=== PATIENT | female | born 1930 | race African-American/Black ===

== ENCOUNTER 2017-03-19 09:31 | Outpatient (CLI) | payer MEDICARE ==
--- NOTE | 2017-03-19 10:52 | Cat Scan Report ---
CT HEAD WITHOUT CONTRAST: HISTORY: Head injury. TECHNIQUE: Sequential CT images without contrast. FINDINGS: Images obtained show bilateral prominence of the sulci and ventricles. There are no abnormal intra- or extra-axial blood or fluid collections. There are no focal masses or evidence of mass effect. The bauer white matter differentiation appears within normal limits. Regions of periventricular decreased attenuation are consistent with microangiopathic ischemic disease. The posterior fossa structures including the fourth ventricle, cerebellum, and brainstem appear normal. IMPRESSION: Evidence of atrophy and microangiopathic ischemic disease. No acute intracranial process noted.
== END 2017-03-19 09:32 | disposition home or self-care (01) ==
LOC: CT 09:31
PROVIDERS: ATTEND Family Medicine
DX: S00.03XA Contusion of scalp, initial encounter (principal); S09.90XA Unspecified injury of head, initial encounter; W19.XXXA Unspecified fall, initial encounter; Y93.89 Activity, other specified; Y92.098 Other place in other non-institutional residence as the place of occurrence of the external cause; Y99.8 Other external cause status
CPT/HCPCS: 70450

== ENCOUNTER 2018-05-05 21:19 | Emergency (ER) | payer MEDICARE ==
[2018-05-05 22:18] LABS: Alanine Aminotransferase 8 units/L (7-56); Albumin 3.7 g/dL (3.9-5); BUN/Creatinine Ratio 26; Blood Urea Nitrogen 13 mg/dL (7-17); Calcium 8.7 mg/dL (8.4-10.2); Hemolysis Index 13
--- NOTE | 2018-05-05 22:29 | Emergency Department Report ---
ED Altered Mental Status HPI - General Chief Complaint: Altered Mental Status Stated Complaint: AMS Time Seen by Provider: 05/05/18 22:02 Source: family, EMS Mode of arrival: Stretcher Limitations: Language Barrier - History of Present Illness Initial Comments: 87-year-old female with history of prior CVA, COPD, GERD, "left lung collapse" (per family) presents to ED with altered mental status since this morning. Family states patient was her normal self yesterday. States she woke up this morning, did not eat as much breakfast as she normally does, she then went back to sleep. Family reports the same thing with lunch, she did not eat as much, no r did she watch TV and she usually does. Family states patient went back to sleep. They had to wake patient up for dinner, and she only had 4 spoonfuls of soup. Due to her lethargy, family called EMS to bring to the ER for evaluation. Patient has history of prior CVA, with left-sided weakness, slurred speech, and facial droop. Family at bedside translating for patient. Patient opens eyes to name call. Denies headache, abdominal pain, vomiting, diarrhea. Reports mild chest discomfort. Patient is oriented to her name, age, place. Family states patient would not normally know the year. Family reports patient was seen by PCP approx one week ago for cough and was given medications for it. Patient has not taken any of her prescription meds today. PCP: Dr Sharonda CROUCH Complaint: altered mental status -: This morning Severity: moderate Consistency of Symptoms: getting worse Associated Symptoms: chest pain, cough, loss of appetite. denies: fever/chills, nausea/vomiting, shortness of breath, diarrhea - Related Data Home Medications Medication Instructions Recorded Confirmed Last Taken ALBUTEROL Inhaler (OR & NICU) 90 mcg IH TID 04/17/14 10/04/17 Unknown [ProAir HFA Inhaler] Oxybutynin [Ditropan] 5 mg PO QHS 04/17/14 10/04/17 Unknown Pantoprazole [Protonix TAB] 40 mg PO QDAY 04/17/14 10/04/17 Unknown amLODIPine [Norvasc] 5 mg PO DAILY 04/17/14 10/04/17 Unknown Lubiprostone [Amitiza] 8 mcg PO QDAY 10/04/17 10/04/17 Unknown OLANZapine 5 mg PO DAILY 10/04/17 10/04/17 Unknown Previous Rx's Medication Instructions Recorded Last Taken Type traMADol [Ultram 50 MG tab] 50 mg PO Q6HR PRN #10 tablet 10/07/17 Unknown Rx Allergies Allergy/AdvReac Type Severity Reaction Status Date / Time No Known Allergies Allergy Unverified 04/17/14 10:24 ED Review of Systems ROS: Stated complaint: AMS Other details as noted in HPI Comment: All other systems reviewed and negative Constitutional: denies: chills, fever Respiratory: cough. denies: shortness of breath Cardiovascular: chest pain Gastrointestinal: denies: abdominal pain, nausea, vomiting, diarrhea Neurological: denies: headache ED Past Medical Hx - Past Medical History Previous Medical History?: Yes Hx Hypertension: Yes Hx CVA: Yes Hx GERD: Yes (REFLUX) Hx COPD: Yes Additional medical history: ANENIA;THYROID;ATELECTASIS - Surgical History Past Surgical History?: No - Social History Smoking Status: Never Smoker Substance Use Type: None - Medications Home Medications: Home Medications Medication Instructions Recorded Confirmed Last Taken Type ALBUTEROL Inhaler (OR & NICU) 90 mcg IH TID 04/17/14 10/04/17 Unknown History [ProAir HFA Inhaler] Oxybutynin [Ditropan] 5 mg PO QHS 04/17/14 10/04/17 Unknown History Pantoprazole [Protonix TAB] 40 mg PO QDAY 04/17/14 10/04/17 Unknown History amLODIPine [Norvasc] 5 mg PO DAILY 04/17/14 10/04/17 Unknown History Lubiprostone [Amitiza] 8 mcg PO QDAY 10/04/17 10/04/17 Unknown History OLANZapine 5 mg PO DAILY 10/04/17 10/04/17 Unknown History traMADol [Ultram 50 MG tab] 50 mg PO Q6HR PRN #10 tablet 10/07/17 Unknown Rx ED Physical Exam - General Limitations: Language Barrier General appearance: lethargic - Head Head exam: Present: atraumatic, normocephalic - Eye Eye exam: Present: normal appearance - ENT ENT exam: Present: mucous membranes dry - Neck Neck exam: Present: normal inspection - Respiratory Respiratory exam: Present: normal lung sounds bilaterally. Absent: respiratory distress - Cardiovascular Cardiovascular Exam: Present: regular rate, normal rhythm - GI/Abdominal GI/Abdominal exam: Present: soft. Absent: distended, tenderness - Extremities Exam Extremities exam: Present: normal inspection. Absent: pedal edema, calf tenderness - Neurological Exam Neurological exam: Present: oriented X3 (to place, self, age), motor sensory deficit (normal strength in bilateral upper and lower extremities). Absent: CN II-XII intact (left facial droop noted, baseline per family) - Psychiatric Psychiatric exam: Present: flat affect - Skin Skin exam: Present: warm, dry, intact, normal color. Absent: rash - Assessment Assessment Interval: Baseline - Level of Consciousness 1a. Level of Consciousness: arousable/minor stimuli - LOC Questions 1b. LOC Questions: answers both correctly - LOC Command 1c. LOC Commands: performs tasks correctly - Best Gaze 2. Best Gaze: normal - Visual 3. Visual: no visual loss - Facial Palsy 4. Facial Palsy: minor paralysis - Motor Arm 5a. Motor Arm Left: no drift 5b. Motor Arm Right: no drift - Motor Leg 6a. Motor Leg Left: no drift 6b. Motor Leg Right: no drift - Limb Ataxia 7. Limb Ataxia: absent - Sensory 8. Sensory: normal - Best Language 9. Best Language: no aphasia - Dysarthria 10. Dysarthria: mild/moderate dysarthria - Extinction and Inattention 11. Extinction/Inattention: no abnormality - Scoring Total Score: 3 Stroke Severity: Minor Stroke ED Course Vital Signs 05/05/18 05/05/18 05/05/18 21:34 21:56 23:31 Temperature 97.7 F 97.6 F 97.9 F Pulse Rate 59 L 70 73 Respiratory 20 18 15 Rate Blood Pressure 139/69 Blood Pressure 139/69 166/89 195/92 [Left] O2 Sat by Pulse 94 98 94 Oximetry 05/06/18 05/06/18 00:07 01:19 Temperature Pulse Rate 70 79 Respiratory 12 13 Rate Blood Pressure Blood Pressure 144/77 151/71 [Left] O2 Sat by Pulse 94 94 Oximetry - Reevaluation(s) Reevaluation #1: 05/06/18 01:06 Spoke w/ Dr Kaufman regarding CT. Does not feel comfortable admitting this pt w/ this scan. Will attempt transfer. - Consultations Consultation #1: 05/06/18 01:07 Spoke w/ Dr Moncada, neuro ICU attending, willing to accept the pt, however, no beds available. [place] [facility] [place] 05/06/18 01:43 Patient accepted to [facility], bed assigned. Will await transport. - Lab Data Result diagrams: 05/06/18 01:20 05/05/18 21:54 Lab Results 05/05/18 05/05/18 05/05/18 Range/Units 21:54 22:31 22:31 WBC (4.5-11.0) K/mm3 RBC (3.65-5.03) M/mm3 Hgb (10.1-14.3) gm/dl Hct (30.3-42.9) % MCV (79-97) fl MCH (28-32) pg MCHC (30-34) % RDW (13.2-15.2) % Plt Count (140-440) K/mm3 Lymph % (Auto) (13.4-35.0) % [place] % (Auto) (0.0-7.3) % Eos % (Auto) (0.0-4.3) % Baso % (Auto) (0.0-1.8) % Lymph # (1.2-5.4) K/mm3 [place] # (0.0-0.8) K/mm3 Eos # (0.0-0.4) K/mm3 Baso # (0.0-0.1) K/mm3 Seg Neutrophils % (40.0-70.0) % Seg Neutrophils # (1.8-7.7) K/mm3 PT 12.3 (12.2-14.9) Sec. INR 0.87 (0.87-1.13) APTT 29.0 (24.2-36.6) Sec. Sodium 143 (137-145) mmol/L Potassium 3.2 L (3.6-5.0) mmol/L Chloride 103.8 (98-107) mmol/L Carbon Dioxide 28 (22-30) mmol/L Anion Gap 14 mmol/L BUN 13 (7-17) mg/dL Creatinine 0.5 L (0.7-1.2) mg/dL Estimated GFR > 60 ml/min BUN/Creatinine Ratio 26 % Glucose 103 H (65-100) mg/dL Calcium 8.7 (8.4-10.2) mg/dL Total Bilirubin 0.60 0.70 (0.1-1.2) mg/dL Direct Bilirubin < 0.2 (0-0.2) mg/dL Indirect Bilirubin 0.5 mg/dL AST 12 12 (5-40) units/L ALT 8 8 (7-56) units/L Alkaline Phosphatase 70 72 (35-129) units/L Troponin T (0.00-0.029) ng/mL Total Protein 6.7 6.5 (6.3-8.2) g/dL Albumin 3.7 L 3.9 (3.9-5) g/dL Albumin/Globulin Ratio 1.2 1.5 % Lipase 12 L (13-60) units/L Urine Color (Yellow) Urine Turbidity (Clear) Urine pH (5.0-7.0) Ur Specific [place] (1.003-1.030) Urine Protein (Negative) mg/dL Urine Glucose (UA) (Negative) mg/dL Urine Ketones (Negative) mg/dL Urine Blood (Negative) Urine Nitrite (Negative) Urine Bilirubin (Negative) Urine Urobilinogen (<2.0) mg/dL Ur Leukocyte Esterase (Negative) Urine WBC (Auto) (0.0-6.0) /HPF Urine RBC (Auto) (0.0-6.0) /HPF U Epithel Cells (Auto) (0-13.0) /HPF Amorphous Crystals 05/05/18 05/05/18 05/06/18 Range/Units 22:31 23:25 01:20 WBC 7.1 (4.5-11.0) K/mm3 RBC 4.18 (3.65-5.03) M/mm3 Hgb 12.7 (10.1-14.3) gm/dl Hct 38.9 (30.3-42.9) % MCV 93 (79-97) fl MCH 31 (28-32) pg MCHC 33 (30-34) % RDW 15.2 (13.2-15.2) % Plt Count 177 (140-440) K/mm3 Lymph % (Auto) 12.5 L (13.4-35.0) % [place] % (Auto) 6.7 (0.0-7.3) % Eos % (Auto) 2.5 (0.0-4.3) % Baso % (Auto) 0.2 (0.0-1.8) % Lymph # 0.9 L (1.2-5.4) K/mm3 [place] # 0.5 (0.0-0.8) K/mm3 Eos # 0.2 (0.0-0.4) K/mm3 Baso # 0.0 (0.0-0.1) K/mm3 Seg Neutrophils % 78.1 H (40.0-70.0) % Seg Neutrophils # 5.6 (1.8-7.7) K/mm3 PT (12.2-14.9) Sec. INR (0.87-1.13) APTT (24.2-36.6) Sec. Sodium (137-145) mmol/L Potassium (3.6-5.0) mmol/L Chloride (98-107) mmol/L Carbon Dioxide (22-30) mmol/L Anion Gap mmol/L BUN (7-17) mg/dL Creatinine (0.7-1.2) mg/dL Estimated GFR ml/min BUN/Creatinine Ratio % Glucose (65-100) mg/dL Calcium (8.4-10.2) mg/dL Total Bilirubin (0.1-1.2) mg/dL Direct Bilirubin (0-0.2) mg/dL Indirect Bilirubin mg/dL AST (5-40) units/L ALT (7-56) units/L Alkaline Phosphatase (35-129) units/L Troponin T < 0.010 (0.00-0.029) ng/mL Total Protein (6.3-8.2) g/dL Albumin (3.9-5) g/dL Albumin/Globulin Ratio % Lipase (13-60) units/L Urine Color Straw (Yellow) Urine Turbidity Clear (Clear) Urine pH 7.0 (5.0-7.0) Ur Specific [place] 1.008 (1.003-1.030) Urine Protein <15 mg/dl (Negative) mg/dL Urine Glucose (UA) Neg (Negative) mg/dL Urine Ketones Neg (Negative) mg/dL Urine Blood Neg (Negative) Urine Nitrite Neg (Negative) Urine Bilirubin Neg (Negative) Urine Urobilinogen < 2.0 (<2.0) mg/dL Ur Leukocyte Esterase Neg (Negative) Urine WBC (Auto) < 1.0 (0.0-6.0) /HPF Urine RBC (Auto) < 1.0 (0.0-6.0) /HPF U Epithel Cells (Auto) < 1.0 (0-13.0) /HPF Amorphous Crystals 1+ - EKG Data -: EKG Interpreted by Me EKG shows normal: sinus rhythm, intervals, QRS complexes Rate: normal When compared to previous EKG there are: no significant change (compared to 09/18/2010) Interpretation: other (T wave inversion V2, aVL) - Radiology Data Radiology results: report reviewed - Medical Decision Making 87-year-old female presents to ED with altered mental status since this morning. Other than hypokalemia with potassium of 3.2, labs unremarkable. Chest x-ray shows patchy airspace disease in left lower lobe. Son reported the patient has a history of "left lung collapse." Patient is afebrile and has normal white count, does not meet sepsis criteria. However, will cover for possible pneumonia with [address] head shows small area of subacute hemorrhage versus mass. Unable to clarify between the two as we do not have MRI available overnight. No edema or mass effect noted. Spoke with the neuro ICU physician at [facility] who has accepted this patient in transfer. The patient has had no decl ine in mental status during her ER stay. Awaiting transport. - Differential Diagnosis infection, electrolyte abnormality, CVA Critical Care Time: Yes Critical care time in (mins) excluding proc time.: 35 Critical care attestation.: If time is entered above; I have spent that time in minutes in the direct care of this critically ill patient, excluding procedure time. Critical Care Time: 35 minutes ED Disposition Clinical Impression: Altered mental status, Abnormal CT of brain, Hypokalemia Disposition: DC/TX-70 ANOTHER TYPE HLTHCARE Is pt being admited?: No Condition: Stable Referrals: RODOLFO MONTEMAYOR MD [Primary Care Provider] - 3-5 Days Time of Disposition: 01:45
[2018-05-05] MEDS ORDERED: NACL 0.9% 1000 ML 1,000 ML IV ONE (22:34)
[2018-05-05 22:57] LABS: INR 0.87 (0.87-1.13)
--- NOTE | 2018-05-05 23:18 | XRay Report ---
PROCEDURE: XR CHEST 1V AP TECHNIQUE: PROCEDURE: CHEST 1 VIEW Chest radiograph posteroanterior projection. CPT 96910 HISTORY: COMPARISONS: None . FINDINGS: Heart: Normal. Mediastinum/Vessels: Normal. Lungs/Pleural space: An inhomogeneous densities noted in the left retrocardiac region. Left costophr enic angle is obscured. Right lung and right pleural spaces are clear.. Bony thorax: No acute osseous abnormality. IMPRESSION: Inhomogeneous density left lower lung may represent atelectasis versus infiltrative horne ge. A two-view chest study is recommended whenever the patient's condition permits.. This document is electronically signed by Miguel Angel Moy MD., May 05 2018 11:16:02 PM ET
--- NOTE | 2018-05-05 23:36 | Cat Scan Report ---
PROCEDURE: CT HEAD/BRAIN WO CON TECHNIQUE: Computerized tomography of the head was performed without contrast material. Imaging was obtained in axial increments. CT DOSE LENGTH PRODUCT: 805.42 mGycm HISTORY: AMS COMPARISONS: None . FINDINGS: There is low density in the periventricular white matter around the left frontal horn. Ballooning of the left frontal horn is noted. A remote lacunar infarct lateral to left frontal horn is seen. There are also tiny remote lacunar infarcts in each basal ganglia. There is a hyperdense ovoid density measuring 8 x 7 mm (axial image 17/56) within the left lisa. No s urrounding edema or mass effect is seen. Findings suggest either small area of subacute hemorrhage or underlying mass. The ventricular system is otherwise normal in size and configuration. There is no evidence for parenc hymal volume loss. There is no evidence for mass effect, midline shift, or acute ischemia/ infarction. No evidence for acute skull fracture is seen. No abnormality in the overlying scalp soft tissues is s een. Visualized paranasal sinuses are clear. IMPRESSION: 1. Multiple ovoid hyperdense focus in the left lisa without surrounding mass effect or edema. Differe ntial includes small area subacute hemorrhage or underlying mass. MRI would be of further help. 2. Small vessel ischemic changes and multiple bilateral remote lacunar infarcts in the periventricula r white matter, especially around the left frontal horn. This document is electronically signed by Luz Harris MD., May 05 2018 11:34:16 PM ET
[2018-05-05 23:43] LABS: Alanine Aminotransferase 8 units/L (7-56); Albumin 3.9 g/dL (3.9-5)
[2018-05-05 23:54] LABS: Bilirubin,Direct < 0.2 mg/dL (0-0.2)
[2018-05-06 00:11] LABS: Amorphous Crystals,Urine 1+; Bilirubin,Urine NEG (Negative); Blood,Urine NEG (Negative); Color,Urine Straw (Yellow); Protein,Urine <15 mg/dL mg/dL (Negative); RBC,Urine < 1.0 /HPF (0.0-6.0); Urobilinogen,Urine < 2.0 mg/dL (<2.0); WBC,Urine < 1.0 /HPF (0.0-6.0)
--- NOTE | 2018-05-06 01:19 | XRay Report ---
PROCEDURE: XR CHEST ROUTINE 2V TECHNIQUE: AP and lateral views of the chest were obtained. HISTORY: cough, hx of "left lung collapse" COMPARISONS: 05/05/2018 FINDINGS: The heart is mildly enlarged. The lungs are diffusely congested. There is patchy airspace disease in the left lower lobe. Pleural fluid is not seen. The skeletal structures reveal generalized osteoporos is with chronic depression fractures in the upper lumbar spine. IMPRESSION: Cardiomegaly with pulmonary vascular congestion. Patchy airspace disease in the left lung base unchan ged.. This document is electronically signed by Davis Rodriguez MD., May 06 2018 01:17:36 AM ET
[2018-05-06 01:20] VITALS: BP 151/71
[2018-05-06 01:24] LABS: Basophils % (Auto) 0.2 % (0.0-1.8); Eosinophils # (Auto) 0.2 K/mm3 (0.0-0.4); Eosinophils % (Auto) 2.5 % (0.0-4.3); Hematocrit 38.9 % (30.3-42.9); Hemoglobin 12.7 gm/dl (10.1-14.3); Lymphocytes # (Auto) 0.9 K/mm3 (1.2-5.4); Lymphocytes % (Auto) 12.5 % (13.4-35.0); Mean Corpuscular HGB Conc 33 % (30-34); Mean Corpuscular Volume 93 fl (79-97); Monocytes # (Auto) 0.5 K/mm3 (0.0-0.8); Monocytes % (Auto) 6.7 % (0.0-7.3); Platelet Count 177 K/mm3 (140-440); Red Blood Count 4.18 M/mm3 (3.65-5.03); Red Cell Distribution Width 15.2 % (13.2-15.2)
[2018-05-06] MEDS ORDERED: K-DUR PO ONE (01:51)
[2018-05-06] MEDS ORDERED: LEVAQUIN 750MG/150ML 750 MG/150 ML BAG IV ONE (01:54)
== END 2018-05-06 02:40 | disposition other institution (70) ==
LOC: ED 21:19
DX: E87.6 Hypokalemia (principal); R41.82 Altered mental status, unspecified; I10 Essential (primary) hypertension; K21.9 Gastro-esophageal reflux disease without esophagitis; J44.9 Chronic obstructive pulmonary disease, unspecified; Z86.73 Personal history of transient ischemic attack (TIA), and cerebral infarction without residual deficits; Z86.2 Personal history of diseases of the blood and blood-forming organs and certain disorders involving the immune mechanism; Z79.899 Other long term (current) drug therapy
CPT/HCPCS: 36415; 70450; 71045; 71046; 80048; 80053; 80076; 81001; 83690; 84484; 85025; 85610; 85730; 93005; 93010; 96361; 96365; 99291; J1956; J7030

== ENCOUNTER 2018-05-27 16:23 | Inpatient (IN) | payer MEDICARE ==
--- NOTE | 2018-05-27 17:29 | Emergency Department Report ---
ED Altered Mental Status HPI - General Chief Complaint: Altered Mental Status Stated Complaint: NOT ACTING RIGHT Time Seen by Provider: 05/27/18 17:18 Source: family, EMS Mode of arrival: Stretcher Limitations: Language Barrier, Altered Mental Status - History of Present Illness Initial Comments: Patient is a 87-year-old female that presents emergency room with complaints of altered mental status, elevated blood pressure, chest pain and abdominal pain. Family is at bedside to translate. Family states that the patient was not answering questions appropriately but is normally completely oriented. Family called EMS because her blood pressure was 180/80 at home and the altered mental status. Patient began to complain of chest pain this morning. Patient also started complaining of abdominal pain 3 days ago. Patient states that the abdominal pain is moderate and the chest pain is moderate. Patient states that the abdominal pain is better with rest and worse with palpation and eating. Patient states the abdominal pain is in her epigastric region. Patient states that the chest pain is in her left chest and nonradiating and it is a moderate pain. Patient denies shortness of breath and diaphoresis and nausea and vomiting. Patient states her chest pain is better with rest and worse with exertion. Son at bedside states that the patient had a stroke 3 weeks ago at a UTI 2 weeks ago. Son states she was seen at [place] for these. MD Complaint: altered mental status, confusion -: Sudden Severity: severe Consistency of Symptoms: waxing and waning Associated Symptoms: chest pain, weakness. denies: malaise, nausea/vomiting, rash, seizure, shortness of breath, syncope, foul smelling urine, diarrhea, incontinence - Related Data Home Medications Medication Instructions Recorded Confirmed Last Taken Oxybutynin [Ditropan] 5 mg PO QHS 04/17/14 05/27/18 05/26/18 Pantoprazole [Protonix TAB] 40 mg PO QDAY 04/17/14 05/27/18 05/27/18 Benzonatate [Tessalon Perles] 100 mg PO Q8HR 05/27/18 05/27/18 05/27/18 Bisacodyl [Bisac-Evac] 10 mg RC QDAY PRN 05/27/18 05/27/18 Unknown Labetalol [Normodyne TAB] 100 mg PO BID 05/27/18 05/27/18 05/27/18 Lubiprostone [Amitiza] 8 mcg PO QDAY 05/27/18 05/27/18 05/27/18 Symbicort 160-4.5 Mcg Inhaler 160 mcg INHALATION Q8H 05/27/18 05/27/18 Unknown Tiotropium [place] [Spiriva 4 gm INHALATION Q8H 05/27/18 05/27/18 Unknown Respimat] Allergies Allergy/AdvReac Type Severity Reaction Status Date / Time No Known Allergies Allergy Unverified 04/17/14 10:24 ED Review of Systems ROS: Stated complaint: NOT ACTING RIGHT Other details as noted in HPI Constitutional: denies: chills, fever Eyes: denies: eye pain, eye discharge, vision change ENT: denies: ear pain, throat pain Respiratory: denies: cough, shortness of breath, wheezing Cardiovascular: chest pain. denies: palpitations Endocrine: no symptoms reported Gastrointestinal: abdominal pain. denies: nausea, diarrhea Genitourinary: denies: urgency, dysuria, discharge Musculoskeletal: denies: back pain, joint swelling, arthralgia Skin: denies: rash, lesions Neurological: weakness, confusion. denies: headache, paresthesias Psychiatric: denies: anxiety, depression Hematological/Lymphatic: denies: easy bleeding, easy bruising ED Past Medical Hx - Past Medical History Previous Medical History?: Yes Hx Hypertension: Yes Hx CVA: Yes Hx GERD: Yes (REFLUX) Hx COPD: Yes Additional medical history: ANENIA;THYROID;ATELECTASIS - Surgical History Past Surgical History?: No - Family History Family history: no significant - Social History Smoking Status: Never Smoker Substance Use Type: None - Medications Home Medications: Home Medications Medication Instructions Recorded Confirmed Last Taken Type Oxybutynin [Ditropan] 5 mg PO QHS 04/17/14 05/27/18 05/26/18 History Pantoprazole [Protonix TAB] 40 mg PO QDAY 04/17/14 05/27/18 05/27/18 History Benzonatate [Tessalon Perles] 100 mg PO Q8HR 05/27/18 05/27/18 05/27/18 History Bisacodyl [Bisac-Evac] 10 mg RC QDAY PRN 05/27/18 05/27/18 Unknown History Labetalol [Normodyne TAB] 100 mg PO BID 04/06/1105/27/18 05/27/18 History Lubiprostone [Amitiza] 8 mcg PO QDAY 05/27/18 05/27/18 05/27/18 History Symbicort 160-4.5 Mcg Inhaler 160 mcg INHALATION Q8H 05/27/18 05/27/18 Unknown History Tiotropium [place] [Spiriva 4 gm INHALATION Q8H 05/27/18 05/27/18 Unknown History Respimat] ED Physical Exam - General Limitations: Language Barrier General appearance: alert, in no apparent distress - Head Head exam: Present: atraumatic, normocephalic - Eye Eye exam: Present: normal appearance - ENT ENT exam: Present: mucous membranes moist - Neck Neck exam: Present: normal inspection - Respiratory Respiratory exam: Present: normal lung sounds bilaterally. Absent: respiratory distress - Cardiovascular Cardiovascular Exam: Present: regular rate, normal rhythm. Absent: systolic murmur, diastolic murmur, rubs, gallop - GI/Abdominal GI/Abdominal exam: Present: soft, tenderness (epigastric tenderness), normal bowel sounds. Absent: distended, guarding - Rectal Rectal exam: Present: deferred - Extremities Exam Extremities exam: Present: normal inspection - Back Exam Back exam: Present: normal inspection - Neurological Exam Neurological exam: Present: alert, altered - Psychiatric Psychiatric exam: Present: normal affect, normal mood - Skin Skin exam: Present: warm, dry, intact, normal color. Absent: rash - Assessment Assessment Interval: Baseline - Level of Consciousness 1a. Level of Consciousness: alert/keenly responsive - LOC Questions 1b. LOC Questions: answers both correctly - LOC Command 1c. LOC Commands: performs tasks correctly - Best Gaze 2. Best Gaze: normal - Visual 3. Visual: no visual loss - Facial Palsy 4. Facial Palsy: normal symmetrical movement - Motor Arm 5a. Motor Arm Left: no drift 5b. Motor Arm Right: no drift - Motor Leg 6a. Motor Leg Left: no drift 6b. Motor Leg Right: no drift - Limb Ataxia 7. Limb Ataxia: absent - Sensory 8. Sensory: normal - Best Language 9. Best Language: no aphasia - Dysarthria 10. Dysarthria: normal - Extinction and Inattention 11. Extinction/Inattention: no abnormality - Scoring Total Score: 0 Stroke Severity: No Stroke Symptoms ED Course Vital Signs 05/27/18 05/27/18 05/27/18 17:11 18:53 19:00 Temperature 98.3 F Pulse Rate 52 L 57 L 55 L Respiratory 12 15 22 Rate Blood Pressure 164/60 164/67 Blood Pressure 164/60 164/67 [Right] O2 Sat by Pulse 98 97 96 Oximetry 05/27/18 05/27/18 05/27/18 19:30 20:00 21:00 Temperature Pulse Rate 57 L 64 Respiratory 18 16 11 L Rate Blood Pressure 163/74 163/74 Blood Pressure [Right] O2 Sat by Pulse 100 98 96 Oximetry 05/27/18 05/27/18 05/27/18 21:43 22:01 22:43 Temperature Pulse Rate 65 Respiratory 18 14 15 Rate Blood Pressure 151/76 Blood Pressure [Right] O2 Sat by Pulse 98 Oximetry - Reevaluation(s) Reevaluation #1: Discussed all results with patient and family. Patient and family agree with plan of care and admission. Patient will be admitted to the hospitalist service. 05/27/18 19:31 - Consultations Consultation #1: Hospitalist consult for admission. Hospitalist to admit patient. 05/27/18 19:30 - Lab Data Result diagrams: 05/27/18 17:41 05/27/18 17:40 Lab Results 05/27/18 05/27/18 05/27/18 Range/Units 17:40 17:41 17:41 WBC 4.7 (4.5-11.0) K/mm3 RBC 3.71 (3.65-5.03) M/mm3 Hgb 11.3 (10.1-14.3) gm/dl Hct 33.4 (30.3-42.9) % MCV 90 (79-97) fl MCH 30 (28-32) pg MCHC 34 (30-34) % RDW 13.2 (13.2-15.2) % Plt Count 185 (140-440) K/mm3 Lymph % (Auto) 14.9 (13.4-35.0) % [place] % (Auto) 6.4 (0.0-7.3) % Eos % (Auto) 1.0 (0.0-4.3) % Baso % (Auto) 0.2 (0.0-1.8) % Lymph # 0.7 L (1.2-5.4) K/mm3 [place] # 0.3 (0.0-0.8) K/mm3 Eos # 0.0 (0.0-0.4) K/mm3 Baso # 0.0 (0.0-0.1) K/mm3 Seg Neutrophils % 77.5 H (40.0-70.0) % Seg Neutrophils # 3.6 (1.8-7.7) K/mm3 Sodium 135 L (137-145) mmol/L Potassium 4.0 (3.6-5.0) mmol/L Chloride 98.1 (98-107) mmol/L Carbon Dioxide 26 (22-30) mmol/L Anion Gap 15 mmol/L BUN 9 (7-17) mg/dL Creatinine 0.4 L (0.7-1.2) mg/dL Estimated GFR > 60 ml/min BUN/Creatinine Ratio 23 % Glucose 101 H (65-100) mg/dL Lactic Acid 1.10 (0.7-2.0) mmol/L Calcium 8.8 (8.4-10.2) mg/dL Total Bilirubin 0.60 (0.1-1.2) mg/dL AST 15 (5-40) units/L ALT 11 (7-56) units/L Alkaline Phosphatase 76 (35-129) units/L Total Creatine Kinase 42 (30-135) units/L Troponin T < 0.010 (0.00-0.029) ng/mL Total Protein 6.4 (6.3-8.2) g/dL Albumin 3.7 L (3.9-5) g/dL Albumin/Globulin Ratio 1.4 % Urine Color (Yellow) Urine Turbidity (Clear) Urine pH (5.0-7.0) Ur Specific [place] (1.003-1.030) Urine Protein (Negative) mg/dL Urine Glucose (UA) (Negative) mg/dL Urine Ketones (Negative) mg/dL Urine Blood (Negative) Urine Nitrite (Negative) Urine Bilirubin (Negative) Urine Urobilinogen (<2.0) mg/dL Ur Leukocyte Esterase (Negative) Urine WBC (Auto) (0.0-6.0) /HPF Urine RBC (Auto) (0.0-6.0) /HPF Urine Mucus /HPF 05/27/18 Range/Units 20:04 WBC (4.5-11.0) K/mm3 RBC (3.65-5.03) M/mm3 Hgb (10.1-14.3) gm/dl Hct (30.3-42.9) % MCV (79-97) fl MCH (28-32) pg MCHC (30-34) % RDW (13.2-15.2) % Plt Count (140-440) K/mm3 Lymph % (Auto) (13.4-35.0) % [place] % (Auto) (0.0-7.3) % Eos % (Auto) (0.0-4.3) % Baso % (Auto) (0.0-1.8) % Lymph # (1.2-5.4) K/mm3 [place] # (0.0-0.8) K/mm3 Eos # (0.0-0.4) K/mm3 Baso # (0.0-0.1) K/mm3 Seg Neutrophils % (40.0-70.0) % Seg Neutrophils # (1.8-7.7) K/mm3 Sodium (137-145) mmol/L Potassium (3.6-5.0) mmol/L Chloride (98-107) mmol/L Carbon Dioxide (22-30) mmol/L Anion Gap mmol/L BUN (7-17) mg/dL Creatinine (0.7-1.2) mg/dL Estimated GFR ml/min BUN/Creatinine Ratio % Glucose (65-100) mg/dL Lactic Acid (0.7-2.0) mmol/L Calcium (8.4-10.2) mg/dL Total Bilirubin (0.1-1.2) mg/dL AST (5-40) units/L ALT (7-56) units/L Alkaline Phosphatase (35-129) units/L Total Creatine Kinase (30-135) units/L Troponin T (0.00-0.029) ng/mL Total Protein (6.3-8.2) g/dL Albumin (3.9-5) g/dL Albumin/Globulin Ratio % Urine Color Yellow (Yellow) Urine Turbidity Clear (Clear) Urine pH 7.0 (5.0-7.0) Ur Specific [place] 1.011 (1.003-1.030) Urine Protein <15 mg/dl (Negative) mg/dL Urine Glucose (UA) Neg (Negative) mg/dL Urine Ketones Neg (Negative) mg/dL Urine Blood Neg (Negative) Urine Nitrite Neg (Negative) Urine Bilirubin Neg (Negative) Urine Urobilinogen < 2.0 (<2.0) mg/dL Ur Leukocyte Esterase Neg (Negative) Urine WBC (Auto) < 1.0 (0.0-6.0) /HPF Urine RBC (Auto) 1.0 (0.0-6.0) /HPF Urine Mucus Few /HPF - EKG Data -: EKG Interpreted by [facility] EKG shows normal: sinus rhythm, axis, intervals, QRS complexes, ST-T waves Rate: normal Interpretation: [facility] - Radiology Data Radiology results: report reviewed PROCEDURE: CT ABDOMEN PELVIS WO CON TECHNIQUE: Computerized axial tomography of the abdomen and pelvis was performed without intravenous contrast. This study is performed without intravascular contrast material and its sensitivity for abdominal and pelvic pathology, including neoplasms, i nflammation, abscess, free fluid, thrombosis, arterial dissection and infarction, is reduced compared with a contrast enhanced study. HISTORY: abd pain COMPARISONS: 10/04/2017 . FINDINGS: Visualized lower thorax: There is left lower lobe volume loss and atelectasis. Liver: Normal size and attenuation. Spleen: Normal size and attenuation. Gallbladder and biliary system: Possible cholelithiasis. Pancreas: Normal. Adrenals: Normal. Kidneys: Bilateral nonobstructing renal calculi, measuring up to 5 mm in the right kidney and 4 mm in the left kidney. Bilateral renal cysts. No hydronephrosis bilaterally. GI tract: Large volume of stool seen throughout the colon, compatible with co nstipation. No bowel obstruction or inflammation . No appendiceal inflammation. Lymph nodes and mesentery: Normal. Vasculature: Aortic atherosclerotic calcification. Bladder: Normal. Reproductive organs: Uterus is present. Peritoneum: No free fluid. Musculoskeletal structures: Stable compression fractures of T12 and L2. Other: None. IMPRESSION: Probable cholelithiasis. Bilateral nonobstructing renal calculi. No bowel obstruction or acute inflammation. Large volume of stool is present throughout the colon. 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 There are no new areas of hemorrhage. There are underlying involutional changes. Bilateral basal ganglia and thalamic chronic lacunar infarcts are present. No CT evidence of intracranial mass, hemorrhage, acute territorial infarction, or hydrocephalus. Intracranial arteries are symmetric in density. Calvarium is intact. Visualized paranasal sinuses and mastoids are aerated. IMPRESSION: No CT evidence of acute intracranial abnormality. 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 PROCEDURE: XR CHEST 1V AP TECHNIQUE: Single AP view of the chest HISTORY: Altered Mental Status COMPARISONS: 05/06/2018 FINDINGS: Prominent cardiac silhouette. Aortic calcification. Left pleural effusion or thickening and left lung base atelectasis or infiltrate. No pneumothorax IMPRESSION: Left pleural effusion or thickening and left lung base atelectasis or infiltrate. - Medical Decision Making Patient is an 87-year-old female that presents with multiple complaints. Patient complained of chest pain, abdominal pain, altered mental status and elevated blood pressure. Patient patient admitted to the hospitalist service. Patient's CAT scan is negative. Patient checks x-ray negative for acute findings. EKG reviewed. Labs unremarkable. UA negative for UTI. Patient's altered mental status may be secondary to expansion of her recent CVA. - Differential Diagnosis altered mental status., Chest pain. Abdominal pain. Critical Care Time: Yes Critical care attestation.: If time is entered above; I have spent that time in minutes in the direct care of this critically ill patient, excluding procedure time. Critical Care Time: 35 minutes ED Disposition Clinical Impression: Weakness Altered mental state Qualifiers: Altered mental status type: unspecified Qualified Code(s): R41.82 - Altered mental status, unspecified Chest pain Qualifiers: Chest pain type: unspecified Qualified Code(s): R07.9 - Chest pain, unspecified Abdominal pain Qualifiers: Abdominal location: epigastric Qualified Code(s): R10.13 - Epigastric pain Hypertension Qualifiers: Hypertension type: essential hypertension Qualified Code(s): I10 - Essential (primary) hypertension Constipation Qualifiers: Constipation type: unspecified constipation type Qualified Code(s): K59.00 - Constipation, unspecified Disposition: -09 OP ADMIT IP TO THIS HOSP Is pt being admited?: Yes Does the pt Need Aspirin: No Condition: Critical Time of Disposition: 19:33
[2018-05-27 18:15] LABS: Basophils % (Auto) 0.2 % (0.0-1.8); Hematocrit 33.4 % (30.3-42.9); Hemoglobin 11.3 gm/dl (10.1-14.3); Lymphocytes # (Auto) 0.7 K/mm3 (1.2-5.4); Lymphocytes % (Auto) 14.9 % (13.4-35.0); Mean Corpuscular HGB Conc 34 % (30-34); Mean Corpuscular Volume 90 fl (79-97); Monocytes # (Auto) 0.3 K/mm3 (0.0-0.8); Monocytes % (Auto) 6.4 % (0.0-7.3); Platelet Count 185 K/mm3 (140-440); Red Blood Count 3.71 M/mm3 (3.65-5.03); Red Cell Distribution Width 13.2 % (13.2-15.2)
--- NOTE | 2018-05-27 18:39 | XRay Report ---
PROCEDURE: XR CHEST 1V AP TECHNIQUE: Single AP view of the chest HISTORY: Altered Mental Status COMPARISONS: 05/06/2018 FINDINGS: Prominent cardiac silhouette. Aortic calcification. Left pleural effusion or thickening and left lung base atelectasis or infiltrate. No pneumothorax IMPRESSION: Left pleural effusion or thickening and left lung base atelectasis or infiltrate. This document is electronically signed by Alana Bennett MD., May 27 2018 06:37:29 PM ET
[2018-05-27 18:43] LABS: Alanine Aminotransferase 11 units/L (7-56); Albumin 3.7 g/dL (3.9-5); BUN/Creatinine Ratio 23; Blood Urea Nitrogen 9 mg/dL (7-17); Calcium 8.8 mg/dL (8.4-10.2); Hemolysis Index 42
--- NOTE | 2018-05-27 18:58 | Cat Scan Report ---
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 There are no new areas of hemorrhage. There are unde rlying involutional changes. Bilateral basal ganglia and thalamic chronic lacunar infarcts are presen t. No CT evidence of intracranial mass, hemorrhage, acute territorial infarction, or hydrocephalus. I ntracranial arteries are symmetric in density. Calvarium is intact. Visualized paranasal sinuses and mastoids are aerated. IMPRESSION: No CT evidence of acute intracranial abnormality. 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 This document is electronically signed by Alana Bennett MD., May 27 2018 06:56:31 PM ET
--- NOTE | 2018-05-27 19:09 | Cat Scan Report ---
PROCEDURE: CT ABDOMEN PELVIS WO CON TECHNIQUE: Computerized axial tomography of the abdomen and pelvis was performed without intravenous contrast. This study is performed without intravascular contrast material and its sensitivity for ab dominal and pelvic pathology, including neoplasms, inflammation, abscess, free fluid, thrombosis, art erial dissection and infarction, is reduced compared with a contrast enhanced study. HISTORY: abd pain COMPARISONS: 10/04/2017 . FINDINGS: Visualized lower thorax: There is left lower lobe volume loss and atelectasis. Liver: Normal size and attenuation. Spleen: Normal size and attenuation. Gallbladder and biliary system: Possible cholelithiasis. Pancreas: Normal. Adrenals: Normal. Kidneys: Bilateral nonobstructing renal calculi, measuring up to 5 mm in the right kidney and 4 mm in the left kidney. Bilateral renal cysts. No hydronephrosis bilaterally. GI tract: Large volume of stool seen throughout the colon, compatible with constipation. No bowel ob struction or inflammation . No appendiceal inflammation. Lymph nodes and mesentery: Normal. Vasculature: Aortic atherosclerotic calcification. Bladder: Normal. Reproductive organs: Uterus is present. Peritoneum: No free fluid. Musculoskeletal structures: Stable compression fractures of T12 and L2. Other: None. IMPRESSION: Probable cholelithiasis. Bilateral nonobstructing renal calculi. No bowel obstruction or acute inflammation. Large volume of stool is present throughout the colon. Co rrelate for constipation . This document is electronically signed by Alana Bennett MD., May 27 2018 07:07:31 PM ET
[2018-05-27 21:01] LABS: Bilirubin,Urine NEG (Negative); Blood,Urine NEG (Negative); Color,Urine Yellow (Yellow); Mucus,Urine FEW /HPF; Protein,Urine <15 mg/dL mg/dL (Negative); Urobilinogen,Urine < 2.0 mg/dL (<2.0); WBC,Urine < 1.0 /HPF (0.0-6.0)
[2018-05-27] MEDS ORDERED: TYLENOL PO ONE (21:17)
[2018-05-27] MEDS ORDERED: MORPHINE IV PRN (21:19)
[2018-05-27] MEDS ORDERED: MILK OF MAGNESIA PO PRN (21:19)
[2018-05-27] MEDS ORDERED: SODIUM CHLORIDE FLUSH SYRINGE 10 ML IV PRN (21:19)
[2018-05-27] MEDS ORDERED: ZOFRAN IV PRN (21:19)
[2018-05-27] MEDS ORDERED: TYLENOL PO PRN (21:19)
[2018-05-27] MEDS: SODIUM CHLORIDE FLUSH SYRINGE 10 ML IV SCH (22:00)
[2018-05-27] MEDS ORDERED: PEPCID IV SCH (22:00)
[2018-05-27] MEDS ORDERED: D5/0.45NS 1,000 ML IV SCH (22:00)
--- NOTE | 2018-05-27 22:38 | History and Physical Report ---
<SOLO PINTO - Last Filed: 05/27/18 23:31> History of Present Illness Date of examination: 05/27/18 Date of admission: 05/27/18 21:19 Chief complaint: Chest pain, abdominal pain 2 days History of present illness: Patient is an 87-year-old [place]ian female with PMHx of hypertension, COPD/asthma, OA, schizophrenia (on Olanzapine) who presents to the ER with complaints of elevated blood pressure, chest pain and abdominal pain x2 days. The medical history was obtained from the translation line with pt's daughter in the room. Patient's daughter states that she has been having chest pain on the left side of the chest and abdominal pain for 2 days, patient states that the abdominal pain is located in the epigastric area, denied nausea, denied vomiting, denies change in appetite, patient's daughter reports one episode of diarrhea yesterday but none today. Patient and family denied any recent traveling, he states that the patient saw her PCP on Thursday the to come to the ER E her blood pressure remote remains elevated. Patient's daughter had been recording the daily blood pressure at home every day, she states that the blood pressure had been unchanged despite's her home medication. In the ER a CT of the abdomen shows probable cholelithiasis, bilateral nonobstructing renal calculi, large volume of stool present throughout the colon correlates for constipation, cardiac enzymes were normal, chest x-ray showed left pleural effusion or thickening and left lung base atelectasis or infiltrate. Patient is placed in observation for pain management and further evaluation of her abdominal pain. Past History Past Medical History: hypertension, other (asthma, arthritis, schizophrenia) Past Surgical History: No surgical history Social history: lives with family Family history: no significant family history Medications and Allergies Allergies Allergy/AdvReac Type Severity Reaction Status Date / Time No Known Allergies Allergy Unverified 04/17/14 10:24 Home Medications Medication Instructions Recorded Confirmed Last Taken Type Oxybutynin [Ditropan] 5 mg PO QHS 04/17/14 05/27/18 05/26/18 History Pantoprazole [Protonix TAB] 40 mg PO QDAY 04/17/14 05/27/18 05/27/18 History Benzonatate [Tessalon Perles] 100 mg PO Q8HR 05/27/18 05/27/18 05/27/18 History Bisacodyl [Bisac-Evac] 10 mg RC QDAY PRN 05/27/18 05/27/18 Unknown History Labetalol [Normodyne TAB] 100 mg PO BID 05/27/18 05/27/18 05/27/18 History Lubiprostone [Amitiza] 8 mcg PO QDAY 05/27/18 05/27/18 05/27/18 History Symbicort 160-4.5 Mcg Inhaler 160 mcg INHALATION Q8H 05/27/18 05/27/18 Unknown History Tiotropium [place] [Spiriva 4 gm INHALATION Q8H 05/27/18 05/27/18 Unknown History Respimat] Active Meds: Active Medications Acetaminophen (Tylenol) 650 mg PO Q4H PRN PRN Reason: Pain MILD(1-3)/Fever >100.5/ECHEVARRIA Famotidine (Pepcid) 20 mg IV BID [facility] Last Admin: 05/27/18 21:46 Dose: 20 mg Documented by: Dextrose/Sodium Chloride (D5/0.45ns) 1,000 mls @ 42 mls/hr IV DIRECT [facility] Magnesium Hydroxide (Milk Of Magnesia) 30 ml PO Q4H PRN PRN Reason: Constipation Morphine Sulfate (Morphine) 2 mg IV Q4H PRN PRN Reason: Pain, Moderate (4-6) Ondansetron HCl (Zofran) 4 mg IV Q8H PRN PRN Reason: Nausea And Vomiting Sodium Chloride (Sodium Chloride Flush Syringe 10 Ml) 10 ml IV BID [facility] Last Admin: 05/27/18 22:00 Dose: 10 ml Documented by: Sodium Chloride (Sodium Chloride Flush Syringe 10 Ml) 10 ml IV PRN PRN PRN Reason: LINE FLUSH Review of Systems Cardiovascular: chest pain Gastrointestinal: diarrhea (x1) Exam - Constitutional Vitals: Temp Pulse Resp BP Pulse Ox 98.3 F 64 18 163/74 96 05/27/18 17:11 05/27/18 21:00 05/27/18 21:43 05/27/18 21:00 05/27/18 21:00 General appearance: Present: no acute distress - EENT Eyes: Present: EOM intact ENT: hearing intact - Neck Neck: Present: normal ROM - Respiratory Respiratory effort: normal Respiratory: bilateral: CTA - Cardiovascular Rhythm: regular Heart Sounds: Present: S1 & S2 - Extremities Extremities: no ischemia Peripheral Pulses: within normal limits - Abdominal General gastrointestinal: Present: soft, non-tender Female genitourinary: Present: deferred - Rectal Rectal Exam: deferred - Integumentary Integumentary: Present: warm, dry - Musculoskeletal Musculoskeletal: strength equal bilaterally - Psychiatric Psychiatric: appropriate mood/affect - Neurologic Neurologic: moves all extremities Results - Labs CBC & Chem 7: 05/27/18 17:41 05/27/18 17:40 Labs: Laboratory Last Values WBC 4.7 K/mm3 (4.5-11.0) 05/27/18 17:41 RBC 3.71 M/mm3 (3.65-5.03) 05/27/18 17:41 Hgb 11.3 gm/dl (10.1-14.3) 05/27/18 17:41 Hct 33.4 % (30.3-42.9) 05/27/18 17:41 MCV 90 fl (79-97) 05/27/18 17:41 MCH 30 pg (28-32) 05/27/18 17:41 MCHC 34 % (30-34) 05/27/18 17:41 RDW 13.2 % (13.2-15.2) 05/27/18 17:41 Plt Count 185 K/mm3 (140-440) 05/27/18 17:41 Lymph % (Auto) 14.9 % (13.4-35.0) 05/27/18 17:41 [place] % (Auto) 6.4 % (0.0-7.3) 05/27/18 17:41 Eos % (Auto) 1.0 % (0.0-4.3) 05/27/18 17:41 Baso % (Auto) 0.2 % (0.0-1.8) 05/27/18 17:41 Lymph # 0.7 K/mm3 (1.2-5.4) L 05/27/18 17:41 [place] # 0.3 K/mm3 (0.0-0.8) 05/27/18 17:41 Eos # 0.0 K/mm3 (0.0-0.4) 05/27/18 17:41 Baso # 0.0 K/mm3 (0.0-0.1) 05/27/18 17:41 Seg Neutrophils % 77.5 % (40.0-70.0) H 05/27/18 17:41 Seg Neutrophils # 3.6 K/mm3 (1.8-7.7) 05/27/18 17:41 Sodium 135 mmol/L (137-145) L 05/27/18 17:40 Potassium 4.0 mmol/L (3.6-5.0) 05/27/18 17:40 Chloride 98.1 mmol/L (98-107) 05/27/18 17:40 Carbon Dioxide 26 mmol/L (22-30) 05/27/18 17:40 Anion Gap 15 mmol/L 05/27/18 17:40 BUN 9 mg/dL (7-17) 05/27/18 17:40 Creatinine 0.4 mg/dL (0.7-1.2) L 05/27/18 17:40 Estimated GFR > 60 ml/min 05/27/18 17:40 BUN/Creatinine Ratio 23 % 05/27/18 17:40 Glucose 101 mg/dL (65-100) H 05/27/18 17:40 Lactic Acid 1.10 mmol/L (0.7-2.0) 05/27/18 17:41 Calcium 8.8 mg/dL (8.4-10.2) 05/27/18 17:40 Total Bilirubin 0.60 mg/dL (0.1-1.2) 05/27/18 17:40 AST 15 units/L (5-40) 05/27/18 17:40 ALT 11 units/L (7-56) 05/27/18 17:40 Alkaline Phosphatase 76 units/L (35-129) 05/27/18 17:40 Total Creatine Kinase 42 units/L (30-135) 05/27/18 17:40 Troponin T < 0.010 ng/mL (0.00-0.029) 05/27/18 17:40 Total Protein 6.4 g/dL (6.3-8.2) 05/27/18 17:40 Albumin 3.7 g/dL (3.9-5) L 05/27/18 17:40 Albumin/Globulin Ratio 1.4 % 05/27/18 17:40 Urine Color Yellow (Yellow) 05/27/18 20:04 Urine Turbidity Clear (Clear) 05/27/18 20:04 Urine pH 7.0 (5.0-7.0) 05/27/18 20:04 Ur Specific [place] 1.011 (1.003-1.030) 05/27/18 20:04 Urine Protein <15 mg/dl mg/dL (Negative) 05/27/18 20:04 Urine Glucose (UA) Neg mg/dL (Negative) 05/27/18 20:04 Urine Ketones Neg mg/dL (Negative) 05/27/18 20:04 Urine Blood Neg (Negative) 05/27/18 20:04 Urine Nitrite Neg (Negative) 05/27/18 20:04 Urine Bilirubin Neg (Negative) 05/27/18 20:04 Urine Urobilinogen < 2.0 mg/dL (<2.0) 05/27/18 20:04 Ur Leukocyte Esterase Neg (Negative) 05/27/18 20:04 Urine WBC (Auto) < 1.0 /HPF (0.0-6.0) 05/27/18 20:04 Urine RBC (Auto) 1.0 /HPF (0.0-6.0) 05/27/18 20:04 Urine Mucus Few /HPF 05/27/18 20:04 Assessment and Plan Assessment and plan: 1. Atypical chest pain (rule out GI etiology) 2. Abdominal pain (improving) 3. Accelerated hypertension 4. COPD/asthma (stable) 5. History of osteoarthritis 6. Possible schizophrenia (on olanzapine) 7. Constipation 8. Advanced age with possible dementia Plan: Place in observation for chest and abdominal pain Monitor BP Q4hr IV fluids for hydration Hydralizine 10 Q4hrs PRN for hypertension Pain control PRN with morphine Resume home meds Plan of care d/w pt, need reinforcement Pt's condition and plan of care d/w Dr Kaufman Advance Directives: Yes VTE prophylaxis?: Chemical Plan of care discussed with patient/family: Yes <BRISEIDA KAUFMAN - Last Filed: 05/28/18 02:07> History of Present Illness Date of admission: 05/27/18 21:19 Medications and Allergies Active Meds: Active Medications Acetaminophen (Tylenol) 650 mg PO Q4H PRN PRN Reason: Pain MILD(1-3)/Fever >100.5/[place]HEVAR[place]A Famotidine (Pepcid) 20 mg IV BID [facility] Last Admin: 05/27/18 21:46 Dose: 20 mg Documented by: Magnesium Hydroxide (Milk Of Magnesia) 30 ml PO Q4H PRN PRN Reason: Constipation Ondansetron HCl (Zofran) 4 mg IV Q8H PRN PRN Reason: Nausea And Vomiting Sodium Chloride (Sodium Chloride Flush Syringe 10 Ml) 10 ml IV BID [facility] Last Admin: 05/27/18 22:00 Dose: 10 ml Documented by: Sodium Chloride (Sodium Chloride Flush Syringe 10 Ml) 10 ml IV PRN PRN PRN Reason: LINE FLUSH Exam - Constitutional Vitals: Temp Pulse Resp BP Pulse Ox 98.3 F 53 L 14 183/71 95 05/28/18 00:00 05/28/18 00:00 05/28/18 00:00 05/28/18 00:00 05/28/18 00:00 Results - Labs CBC & Chem 7: 05/27/18 17:41 05/27/18 17:40 Labs: Laboratory Last Values WBC 4.7 K/mm3 (4.5-11.0) 05/27/18 17:41 RBC 3.71 M/mm3 (3.65-5.03) 05/27/18 17:41 Hgb 11.3 gm/dl (10.1-14.3) 05/27/18 17:41 Hct 33.4 % (30.3-42.9) 05/27/18 17:41 MCV 90 fl (79-97) 05/27/18 17:41 MCH 30 pg (28-32) 05/27/18 17:41 MCHC 34 % (30-34) 05/27/18 17:41 RDW 13.2 % (13.2-15.2) 05/27/18 17:41 Plt Count 185 K/mm3 (140-440) 05/27/18 17:41 Lymph % (Auto) 14.9 % (13.4-35.0) 05/27/18 17:41 [place] % (Auto) 6.4 % (0.0-7.3) 05/27/18 17:41 Eos % (Auto) 1.0 % (0.0-4.3) 05/27/18 17:41 Baso % (Auto) 0.2 % (0.0-1.8) 05/27/18 17:41 Lymph # 0.7 K/mm3 (1.2-5.4) L 05/27/18 17:41 [place] # 0.3 K/mm3 (0.0-0.8) 05/27/18 17:41 Eos # 0.0 K/mm3 (0.0-0.4) 05/27/18 17:41 Baso # 0.0 K/mm3 (0.0-0.1) 05/27/18 17:41 Seg Neutrophils % 77.5 % (40.0-70.0) H 05/27/18 17:41 Seg Neutrophils # 3.6 K/mm3 (1.8-7.7) 05/27/18 17:41 Sodium 135 mmol/L (137-145) L 05/27/18 17:40 Potassium 4.0 mmol/L (3.6-5.0) 05/27/18 17:40 Chloride 98.1 mmol/L (98-107) 05/27/18 17:40 Carbon Dioxide 26 mmol/L (22-30) 05/27/18 17:40 Anion Gap 15 mmol/L 05/27/18 17:40 BUN 9 mg/dL (7-17) 05/27/18 17:40 Creatinine 0.4 mg/dL (0.7-1.2) L 05/27/18 17:40 Estimated GFR > 60 ml/min 05/27/18 17:40 BUN/Creatinine Ratio 23 % 05/27/18 17:40 Glucose 101 mg/dL (65-100) H 05/27/18 17:40 Lactic Acid 1.10 mmol/L (0.7-2.0) 05/27/18 17:41 Calcium 8.8 mg/dL (8.4-10.2) 05/27/18 17:40 Total Bilirubin 0.60 mg/dL (0.1-1.2) 05/27/18 17:40 AST 15 units/L (5-40) 05/27/18 17:40 ALT 11 units/L (7-56) 05/27/18 17:40 Alkaline Phosphatase 76 units/L (35-129) 05/27/18 17:40 Total Creatine Kinase 42 units/L (30-135) 05/27/18 17:40 Troponin T < 0.010 ng/mL (0.00-0.029) 05/27/18 17:40 Total Protein 6.4 g/dL (6.3-8.2) 05/27/18 17:40 Albumin 3.7 g/dL (3.9-5) L 05/27/18 17:40 Albumin/Globulin Ratio 1.4 % 05/27/18 17:40 Urine Color Yellow (Yellow) 05/27/18 20:04 Urine Turbidity Clear (Clear) 05/27/18 20:04 Urine pH 7.0 (5.0-7.0) 05/27/18 20:04 Ur Specific [place] 1.011 (1.003-1.030) 05/27/18 20:04 Urine Protein <15 mg/dl mg/dL (Negative) 05/27/18 20:04 Urine Glucose (UA) Neg mg/dL (Negative) 05/27/18 20:04 Urine Ketones Neg mg/dL (Negative) 05/27/18 20:04 Urine Blood Neg (Negative) 05/27/18 20:04 Urine Nitrite Neg (Negative) 05/27/18 20:04 Urine Bilirubin Neg (Negative) 05/27/18 20:04 Urine Urobilinogen < 2.0 mg/dL (<2.0) 05/27/18 20:04 Ur Leukocyte Esterase Neg (Negative) 05/27/18 20:04 Urine WBC (Auto) < 1.0 /HPF (0.0-6.0) 05/27/18 20:04 Urine RBC (Auto) 1.0 /HPF (0.0-6.0) 05/27/18 20:04 Urine Mucus Few /HPF 05/27/18 20:04 Assessment and Plan Assessment and plan: 87-year-old woman with a history of hypertension, dementia, schizophrenia, COPD was sent to the emergency room by her physician for uncontrolled hypertension. The patient also complaining of chest pain, abdominal pain. Her physical exam is benign, workup so far has been negative. Agree with the plan as discussed above, in addition check cardiac enzymes, consult cardiology, check ultrasound of the abdomen for questionable gallstone
[2018-05-28] MEDS ORDERED: NON-FORMULARY (Tiotropium Bromide [Spiriva Respimat] 4 GM) INHALATION SCH (04:00)
[2018-05-28] MEDS ORDERED: DULCOLAX PR PRN (04:00)
[2018-05-28] MEDS ORDERED: SYMBICORT INHALATION SCH (04:00)
[2018-05-28] MEDS: TESSALON PERLES PO SCH ×4 (05:20→22:34)
[2018-05-28 05:30] LABS: Basophils % (Auto) 0.2 % (0.0-1.8); Eosinophils # (Auto) 0.1 K/mm3 (0.0-0.4); Eosinophils % (Auto) 1.6 % (0.0-4.3); Hematocrit 32.3 % (30.3-42.9); Lymphocytes # (Auto) 0.7 K/mm3 (1.2-5.4); Lymphocytes % (Auto) 18.7 % (13.4-35.0); Mean Corpuscular HGB Conc 34 % (30-34); Mean Corpuscular Volume 90 fl (79-97); Monocytes # (Auto) 0.3 K/mm3 (0.0-0.8); Monocytes % (Auto) 7.2 % (0.0-7.3); Red Blood Count 3.61 M/mm3 (3.65-5.03); Red Cell Distribution Width 13.3 % (13.2-15.2)
[2018-05-28 05:53] LABS: BUN/Creatinine Ratio 23; Blood Urea Nitrogen 9 mg/dL (7-17); Calcium 8.6 mg/dL (8.4-10.2); Hemolysis Index 7
[2018-05-28 06:38] LABS: Creatine Kinase MB < 1.0 ng/mL (0.0-4.0)
[2018-05-28 06:46] LABS: Platelet Count 186 K/mm3 (140-440)
[2018-05-28] MEDS: PULMICORT IH SCH ×2 (08:30→20:20)
[2018-05-28] MEDS: BROVANA NEBU IH SCH ×2 (08:30→20:20)
[2018-05-28] MEDS: SPIRIVA IH SCH (08:30)
[2018-05-28 09:32] LABS: Creatine Kinase MB < 1.0 ng/mL (0.0-4.0)
[2018-05-28] MEDS: COLACE PO SCH ×2 (10:09→22:34)
[2018-05-28] MEDS: NORMODYNE PO SCH ×2 (10:09→22:34)
[2018-05-28] MEDS: PROTONIX PO SCH (10:10)
--- NOTE | 2018-05-28 10:43 | Consultation ---
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 She is previously unknown to our practice. She presented for evaluation of AMS and elevated BPs. Her son at bedside states that pt also developed abdominal pain and chest pain while in ED yesterday. Pt had a bout of diarrhea 2 days ago. No other historical information provided. 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 Neurology recommended treatment with ASA to be started 2 weeks after CVA. Pt was then hospitalized again and discharged from [place] on 05/18 following treatment for AMS, encephalopathy, UTI. Echo done 05/14/2018 showed EF 65%, mod LVH, mild MR, mildly dilated LA and RA, mild TR, RVSP 31mmHg. Past History Past Medical History: hypertension, stroke, other (asthma, arthritis, schizophrenia) Past Surgical History: No surgical history Social history: lives with family Family history: no significant family history Medications and Allergies Allergies Allergy/AdvReac Type Severity Reaction Status Date / Time No Known Allergies Allergy Unverified 04/17/14 10:24 Home Medications Medication Instructions Recorded Confirmed Last Taken Type Oxybutynin [Ditropan] 5 mg PO QHS 04/17/14 05/27/18 05/26/18 History Pantoprazole [Protonix TAB] 40 mg PO QDAY 04/17/14 05/27/18 05/27/18 History Benzonatate [Tessalon Perles] 100 mg PO Q8HR 05/27/18 05/27/18 05/27/18 History Bisacodyl [Bisac-Evac] 10 mg RC QDAY PRN 05/27/18 05/27/18 Unknown History Labetalol [Normodyne TAB] 100 mg PO BID 05/27/18 05/27/18 05/27/18 History Lubiprostone [Amitiza] 8 mcg PO QDAY 05/27/18 05/27/18 05/27/18 History Symbicort 160-4.5 Mcg Inhaler 160 mcg INHALATION Q8H 05/27/18 05/27/18 Unknown History Tiotropium [place] [Spiriva 4 gm INHALATION Q8H 05/27/18 05/27/18 Unknown History Respimat] Active Meds: Active Medications Acetaminophen (Tylenol) 650 mg PO Q4H PRN PRN Reason: Pain MILD(1-3)/Fever >100.5/ECHEVARRIA Last Admin: 05/28/18 05:23 Dose: 650 mg Documented by: Arformoterol Tartrate (Brovana Nebu) 15 mcg IH Q12HRT [facility] Last Admin: 05/28/18 08:30 Dose: 15 mcg Documented by: Benzonatate (Tessalon Perles) 100 mg PO Q8HR [facility] Last Admin: 05/28/18 05:23 Dose: 100 mg Documented by: Bisacodyl (Dulcolax) 10 mg [place] QDAY PRN PRN Reason: Constipation Budesonide (Pulmicort) 1 mg IH Q12HRT [facility] Last Admin: 05/28/18 08:30 Dose: 1 mg Documented by: Docusate Sodium (Colace) 100 mg PO BID [facility] Labetalol HCl (Normodyne) 100 mg PO BID [facility] Magnesium Hydroxide (Milk Of Magnesia) 30 ml PO Q4H PRN PRN Reason: Constipation Ondansetron HCl (Zofran) 4 mg IV Q8H PRN PRN Reason: Nausea And Vomiting Oxybutynin Chloride (Ditropan) 5 mg PO QHS [facility] Pantoprazole Sodium (Protonix) 40 mg PO QDAY [facility] Sodium Chloride (Sodium Chloride Flush Syringe 10 Ml) 10 ml IV BID [facility] Last Admin: 05/27/18 22:00 Dose: 10 ml Documented by: Sodium Chloride (Sodium Chloride Flush Syringe 10 Ml) 10 ml IV PRN PRN PRN Reason: LINE FLUSH Tiotropium [place] (Spiriva) 1 puff IH Q24HR [facility] Review of Systems Cardiovascular: chest pain, high blood pressure Gastrointestinal: abdominal pain, diarrhea, no nausea, no vomiting Physical Examination Vital Signs Temp Pulse Resp BP Pulse Ox 98.3 F 52 L 12 164/60 98 05/27/18 17:11 05/27/18 17:11 05/27/18 17:11 05/27/18 17:11 05/27/18 17:11 General appearance: no acute distress HEENT: Positive: PERRL, Normocephaly, Mucus Membranes Moist Neck: Positive: neck supple, trachea midline Cardiac: Positive: Reg Rate and Rhythm, S1/S2, Systolic Murmur Lungs: Positive: Normal Exam Neuro: Positive: Grossly Intact Abdomen: Negative: Tender Skin: Negative: Rash Musculoskeletal: No Pain Extremities: Absent: edema Results 05/28/18 04:36 05/28/18 04:36 Cardiac Enzymes 05/27/18 05/28/18 05/28/18 Range/Units 17:40 04:36 08:45 AST 15 (5-40) units/L CK-MB (CK-2) < 1.0 < 1.0 (0.0-4.0) ng/mL CBC 05/27/18 05/28/18 Range/Units 17:41 04:36 WBC 4.7 3.8 L (4.5-11.0) K/mm3 RBC 3.71 3.61 L (3.65-5.03) M/mm3 Hgb 11.3 11.0 (10.1-14.3) gm/dl Hct 33.4 32.3 (30.3-42.9) % Plt Count 185 186 (140-440) K/mm3 Lymph # 0.7 L 0.7 L (1.2-5.4) K/mm3 Iron # 0.3 0.3 (0.0-0.8) K/mm3 Eos # 0.0 0.1 (0.0-0.4) K/mm3 Baso # 0.0 0.0 (0.0-0.1) K/mm3 Comprehensive Metabolic Panel 05/27/18 05/28/18 Range/Units 17:40 04:36 Sodium 135 L 135 L (137-145) mmol/L Potassium 4.0 3.8 (3.6-5.0) mmol/L Chloride 98.1 99.1 (98-107) mmol/L Carbon Dioxide 26 30 (22-30) mmol/L BUN 9 9 (7-17) mg/dL Creatinine 0.4 L 0.4 L (0.7-1.2) mg/dL Glucose 101 H 96 (65-100) mg/dL Calcium 8.8 8.6 (8.4-10.2) mg/dL AST 15 (5-40) units/L ALT 11 (7-56) units/L Alkaline Phosphatase 76 (35-129) units/L Total Protein 6.4 (6.3-8.2) g/dL Albumin 3.7 L (3.9-5) g/dL - Imaging and Cardiology Echo: report reviewed (05/14/2018 showed EF 65%, mod LVH, mild MR, mildly dilated LA and RA, mild TR, RVSP 31mmHg. ) EKG: report reviewed, image reviewed EKG interpretations - Telemetry EKG Rhythm: Sinus Rhythm - EKG Sinus rhythms and dysrhythmias: sinus rhythm Assessment and Plan Currently stable cardiac status. AMI ruled out. Echo from [place] reviewed - 05/14/2018 showed EF 65%, mod LVH, mild MR, mildly dilated LA and RA, mild TR, RVSP 31mmHg. Chest pain currently resolved. Cont to optimize BPs per primary and can consider stress test as OP. Nothing further to add from cardiac perspective at this time. Will sign off. Recommend pt follow up in our office with Dr. Rock within 1-2 weeks of hospital discharge ([phone]). The patient has been seen in conjunction with Dr. Rock who agrees with the assessment and plan of care. - Patient Problems (1) Altered mental state Current Visit: Yes Status: Acute Qualifiers: Altered mental status type: unspecified Qualified Code(s): R41.82 - Altered mental status, unspecified (2) Chest pain Current Visit: Yes Status: Resolved Qualifiers: Chest pain type: unspecified Qualified Code(s): R07.9 - Chest pain, unspecified (3) Abdominal pain Current Visit: Yes Status: Acute Qualifiers: Abdominal location: epigastric Qualified Code(s): R10.13 - Epigastric pain (4) Accelerated hypertension Current Visit: Yes Status: Acute (5) History of hemorrhagic cerebrovascular accident (CVA) with residual deficit Current Visit: Yes Status: Chronic (6) History of ischemic cerebrovascular accident (CVA) with residual deficit Current Visit: Yes Status: Chronic (7) Hyperlipidemia Current Visit: Yes Status: Chronic
[2018-05-28] MEDS ORDERED: ATIVAN IV ONE (12:30)
--- NOTE | 2018-05-28 18:24 | Ultrasound Report ---
PROCEDURE: US ABDOMEN LIMITED TECHNIQUE: Longitudinal and transverse grayscale and color sonographic images were performed of the abdomen HISTORY: ??gall stone abdominal pain COMPARISONS: CT 05/27/2018 showing possible gallstone in the gallbladder FINDINGS: Pancreas is sonographically unremarkable. Aorta is normal proximally. Right kidney measures 10.3 cm with an upper pole 1.8 cm cortical exophytic cyst. Liver demonstrates normal echogenicity and echotexture. Common duct measures 4 mm. Gallbladder is moderately distended. Wall measures 1 mm. No definite stones are identified. IMPRESSION: Combative patient. No definite stone identified in the gallbladder. Review of the previous CT is highly suggestive of de pendent stones which are likely not visualized without the patient being placed decubitus. No biliary ductal dilatation. This document is electronically signed by Marina Funes MD., May 28 2018 06:22:08 PM ET
[2018-05-28] MEDS ORDERED: HALDOL IM PRN (19:40)
--- NOTE | 2018-05-28 19:42 | Progress Note ---
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] --Atypical chest pain; cardiology evaluated No further recommendations --Abdominal pain; CT abdomen and pelvis no acute abnormalities noted Except for cholelithiasis, abdominal ultrasound scheduled Continue supportive cares, clear liquids as tolerated --Accelerated hypertension; significantly improved continue current antihypertensives and when necessary medications --History of CVA with residual weakness supportive care Physical therapy occupational therapy --History of constipation; stool softeners as needed --Dementia; supportive care --DVT prophylaxis; SCD, Lovenox monitor the patient and adjust the management as noted Plan of care reviewed with the patient's son who speaks Iraqi, and her nurse History Interval history: Patient seen and examined medical records reviewed Patient was admitted with abdominal pain, CT abdomen negative for acute abnormalities Scheduled for abdominal ultrasound Patient is agitated, restless trying to come out of the bed Son is trying to control, reports that the patient complains of abdominal pain, we will restraint for safety Vital signs noted Hospitalist Physical - Constitutional Vitals: Temp Pulse Resp BP Pulse Ox 98.8 F 84 16 162/71 93 05/28/18 08:20 05/28/18 08:39 05/28/18 08:39 05/28/18 08:20 05/28/18 08:20 General appearance: Present: mild distress, well-nourished, other - EENT Eyes: Present: PERRL, EOM intact - Neck Neck: Present: supple, normal ROM - Respiratory Respiratory effort: normal Respiratory: bilateral: diminished, negative: rales, rhonchi, wheezing - Cardiovascular Rhythm: regular Heart Sounds: Present: S1 & S2 - Extremities Extremities: no ischemia, No edema - Abdominal General gastrointestinal: soft, non-tender, non-distended, normal bowel sounds - Integumentary Integumentary: Present: clear, warm - Psychiatric Psychiatric: agitated - Neurologic Neurologic: moves all extremities Results - Labs CBC & Chem 7: 05/28/18 04:36 05/28/18 04:36 Labs: Laboratory Last Values WBC 3.8 K/mm3 (4.5-11.0) L 05/28/18 04:36 RBC 3.61 M/mm3 (3.65-5.03) L 05/28/18 04:36 Hgb 11.0 gm/dl (10.1-14.3) 05/28/18 04:36 Hct 32.3 % (30.3-42.9) 05/28/18 04:36 MCV 90 fl (79-97) 05/28/18 04:36 MCH 31 pg (28-32) 05/28/18 04:36 MCHC 34 % (30-34) 05/28/18 04:36 RDW 13.3 % (13.2-15.2) 05/28/18 04:36 Plt Count 186 K/mm3 (140-440) 05/28/18 04:36 Lymph % (Auto) 18.7 % (13.4-35.0) 05/28/18 04:36 [place] % (Auto) 7.2 % (0.0-7.3) 05/28/18 04:36 Eos % (Auto) 1.6 % (0.0-4.3) 05/28/18 04:36 Baso % (Auto) 0.2 % (0.0-1.8) 05/28/18 04:36 Lymph # 0.7 K/mm3 (1.2-5.4) L 05/28/18 04:36 [place] # 0.3 K/mm3 (0.0-0.8) 05/28/18 04:36 Eos # 0.1 K/mm3 (0.0-0.4) 05/28/18 04:36 Baso # 0.0 K/mm3 (0.0-0.1) 05/28/18 04:36 Seg Neutrophils % 72.3 % (40.0-70.0) H 05/28/18 04:36 Seg Neutrophils # 2.7 K/mm3 (1.8-7.7) 05/28/18 04:36 Sodium 135 mmol/L (137-145) L 05/28/18 04:36 Potassium 3.8 mmol/L (3.6-5.0) 05/28/18 04:36 Chloride 99.1 mmol/L (98-107) 05/28/18 04:36 Carbon Dioxide 30 mmol/L (22-30) 05/28/18 04:36 Anion Gap 10 mmol/L 05/28/18 04:36 BUN 9 mg/dL (7-17) 05/28/18 04:36 Creatinine 0.4 mg/dL (0.7-1.2) L 05/28/18 04:36 Estimated GFR > 60 ml/min 05/28/18 04:36 BUN/Creatinine Ratio 23 % 05/28/18 04:36 Glucose 96 mg/dL (65-100) 05/28/18 04:36 Lactic Acid 1.10 mmol/L (0.7-2.0) 05/27/18 17:41 Calcium 8.6 mg/dL (8.4-10.2) 05/28/18 04:36 Total Bilirubin 0.60 mg/dL (0.1-1.2) 05/27/18 17:40 AST 15 units/L (5-40) 05/27/18 17:40 ALT 11 units/L (7-56) 05/27/18 17:40 Alkaline Phosphatase 76 units/L (35-129) 05/27/18 17:40 Total Creatine Kinase 39 units/L (30-135) 05/28/18 08:45 CK-MB (CK-2) < 1.0 ng/mL (0.0-4.0) 05/28/18 08:45 CK-MB (CK-2) Rel Index 2.5 (0-4) 05/28/18 08:45 Troponin T < 0.010 ng/mL (0.00-0.029) 05/28/18 08:45 Total Protein 6.4 g/dL (6.3-8.2) 05/27/18 17:40 Albumin 3.7 g/dL (3.9-5) L 05/27/18 17:40 Albumin/Globulin Ratio 1.4 % 05/27/18 17:40 Urine Color Yellow (Yellow) 05/27/18 20:04 Urine Turbidity Clear (Clear) 05/27/18 20:04 Urine pH 7.0 (5.0-7.0) 05/27/18 20:04 Ur Specific [place] 1.011 (1.003-1.030) 05/27/18 20:04 Urine Protein <15 mg/dl mg/dL (Negative) 05/27/18 20:04 Urine Glucose (UA) Neg mg/dL (Negative) 05/27/18 20:04 Urine Ketones Neg mg/dL (Negative) 05/27/18 20:04 Urine Blood Neg (Negative) 05/27/18 20:04 Urine Nitrite Neg (Negative) 05/27/18 20:04 Urine Bilirubin Neg (Negative) 05/27/18 20:04 Urine Urobilinogen < 2.0 mg/dL (<2.0) 05/27/18 20:04 Ur Leukocyte Esterase Neg (Negative) 05/27/18 20:04 Urine WBC (Auto) < 1.0 /HPF (0.0-6.0) 05/27/18 20:04 Urine RBC (Auto) 1.0 /HPF (0.0-6.0) 05/27/18 20:04 Urine Mucus Few /HPF 05/27/18 20:04 Active Medications - Current Medications Current Medications: Generic Name Dose Route Start Last Admin Trade Name Freq PRN Reason Stop Dose Admin Acetaminophen 650 mg 05/27/18 21:19 05/28/18 05:23 Tylenol PO 650 mg Q4H PRN Administration Pain MILD(1-3)/Fever >100.5/ECHEVARRIA Arformoterol Tartrate 15 mcg 05/28/18 08:00 05/28/18 08:30 Brovana Nebu IH 15 mcg Q12HRT FAITH Administration Benzonatate 100 mg 05/28/18 06:00 05/28/18 14:10 Tessalon Perles PO Not Given Q8HR FAITH Bisacodyl 10 mg 05/28/18 04:00 Dulcolax DE QDAY PRN Constipation Budesonide 1 mg 05/28/18 08:00 05/28/18 08:30 Pulmicort IH 1 mg Q12HRT FAITH Administration Docusate Sodium 100 mg 05/28/18 10:00 05/28/18 10:09 Colace PO Not Given BID FAITH Haloperidol Lactate 1 mg 05/28/18 19:40 Haldol IM Q6H PRN Agitation Labetalol HCl 100 mg 05/28/18 10:00 05/28/18 10:09 Normodyne PO Not Given BID FAITH Magnesium Hydroxide 30 ml 05/27/18 21:19 Milk Of Magnesia PO Q4H PRN Constipation Ondansetron HCl 4 mg 05/27/18 21:19 Zofran IV Q8H PRN Nausea And Vomiting Oxybutynin Chloride 5 mg 05/28/18 22:00 Ditropan PO QHS FAITH Pantoprazole Sodium 40 mg 05/28/18 10:00 05/28/18 10:10 Protonix PO Not Given QDAY FAITH Sodium Chloride 10 ml 05/27/18 22:00 05/27/18 22:00 Sodium Chloride Flush Syringe 10 Ml IV 10 ml BID FAITH Administration Sodium Chloride 10 ml 05/27/18 21:19 Sodium Chloride Flush Syringe 10 Ml IV PRN PRN LINE FLUSH Tiotropium [place] 1 puff 05/28/18 10:00 05/28/18 08:30 Spiriva IH Not Given Q24HR FAITH
[2018-05-28] MEDS: SODIUM CHLORIDE FLUSH SYRINGE 10 ML IV SCH ×2 (22:34→22:37)
[2018-05-28] MEDS: DITROPAN PO SCH (22:37)
[2018-05-29] MEDS: DITROPAN PO SCH ×2 (00:14→21:41)
[2018-05-29] MEDS: COLACE PO SCH ×3 (00:14→21:40)
[2018-05-29] MEDS: TESSALON PERLES PO SCH ×4 (00:14→21:40)
[2018-05-29] MEDS: NORMODYNE PO SCH ×3 (00:14→21:39)
[2018-05-29] MEDS: PULMICORT IH SCH ×2 (07:28→20:21)
[2018-05-29] MEDS: BROVANA NEBU IH SCH ×2 (07:28→20:21)
[2018-05-29] MEDS: SPIRIVA IH SCH (09:20)
[2018-05-29] MEDS: SODIUM CHLORIDE FLUSH SYRINGE 10 ML IV SCH ×2 (09:23→21:40)
[2018-05-29] MEDS: PROTONIX PO SCH (09:24)
--- NOTE | 2018-05-29 12:40 | Progress Note ---
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] --Atypical chest pain; cardiology evaluated No complaints suggestive of chest pain --Abdominal pain; CT abdomen and pelvis no acute abnormalities noted Except for cholelithiasis, abdominal ultrasound no acute abnormalities Tolerating clear liquids, advance to soft diet --Accelerated hypertension; present on admission continue current antihypertensives and PRN medications --History of CVA with residual weakness supportive care Physical therapy occupational therapy --History of constipation; stool softeners as needed --Dementia; supportive care --DVT prophylaxis; SCD, Lovenox monitor the patient and adjust the management as noted Plan of care reviewed with the patient's daughter who speaks Sami, and her nurse History Interval history: Patient seen and examined medical records reviewed Patient is calm, no agitation or aggression, not in acute distress Off restraints, tolerating liquid diet Daughter at the bedside Vital signs reviewed Hospitalist Physical - Constitutional Vitals: Temp Pulse Resp BP Pulse Ox 97.9 F 89 18 145/78 95 05/29/18 07:45 05/29/18 10:10 05/29/18 07:45 05/29/18 09:23 05/29/18 07:45 General appearance: Present: no acute distress, cachectic - EENT Eyes: Present: PERRL, EOM intact - Neck Neck: Present: supple, normal ROM - Respiratory Respiratory effort: normal Respiratory: bilateral: diminished, negative: rales, rhonchi, wheezing - Cardiovascular Rhythm: regular Heart Sounds: Present: S1 & S2 - Extremities Extremities: no ischemia, No edema - Abdominal General gastrointestinal: soft, non-tender, non-distended, normal bowel sounds - Integumentary Integumentary: Present: clear, warm - Psychiatric Psychiatric: other (noncommunicative) - Neurologic Neurologic: moves all extremities Results - Labs CBC & Chem 7: 05/28/18 04:36 05/28/18 04:36 Labs: Laboratory Last Values WBC 3.8 K/mm3 (4.5-11.0) L 05/28/18 04:36 RBC 3.61 M/mm3 (3.65-5.03) L 05/28/18 04:36 Hgb 11.0 gm/dl (10.1-14.3) 05/28/18 04:36 Hct 32.3 % (30.3-42.9) 05/28/18 04:36 MCV 90 fl (79-97) 05/28/18 04:36 MCH 31 pg (28-32) 05/28/18 04:36 MCHC 34 % (30-34) 05/28/18 04:36 RDW 13.3 % (13.2-15.2) 05/28/18 04:36 Plt Count 186 K/mm3 (140-440) 05/28/18 04:36 Lymph % (Auto) 18.7 % (13.4-35.0) 05/28/18 04:36 Real % (Auto) 7.2 % (0.0-7.3) 05/28/18 04:36 Eos % (Auto) 1.6 % (0.0-4.3) 05/28/18 04:36 Baso % (Auto) 0.2 % (0.0-1.8) 05/28/18 04:36 Lymph # 0.7 K/mm3 (1.2-5.4) L 05/28/18 04:36 Real # 0.3 K/mm3 (0.0-0.8) 05/28/18 04:36 Eos # 0.1 K/mm3 (0.0-0.4) 05/28/18 04:36 Baso # 0.0 K/mm3 (0.0-0.1) 05/28/18 04:36 Seg Neutrophils % 72.3 % (40.0-70.0) H 05/28/18 04:36 Seg Neutrophils # 2.7 K/mm3 (1.8-7.7) 05/28/18 04:36 Sodium 135 mmol/L (137-145) L 05/28/18 04:36 Potassium 3.8 mmol/L (3.6-5.0) 05/28/18 04:36 Chloride 99.1 mmol/L (98-107) 05/28/18 04:36 Carbon Dioxide 30 mmol/L (22-30) 05/28/18 04:36 Anion Gap 10 mmol/L 05/28/18 04:36 BUN 9 mg/dL (7-17) 05/28/18 04:36 Creatinine 0.4 mg/dL (0.7-1.2) L 05/28/18 04:36 Estimated GFR > 60 ml/min 05/28/18 04:36 BUN/Creatinine Ratio 23 % 05/28/18 04:36 Glucose 96 mg/dL (65-100) 05/28/18 04:36 Lactic Acid 1.10 mmol/L (0.7-2.0) 05/27/18 17:41 Calcium 8.6 mg/dL (8.4-10.2) 05/28/18 04:36 Total Bilirubin 0.60 mg/dL (0.1-1.2) 05/27/18 17:40 AST 15 units/L (5-40) 05/27/18 17:40 ALT 11 units/L (7-56) 05/27/18 17:40 Alkaline Phosphatase 76 units/L (35-129) 05/27/18 17:40 Total Creatine Kinase 39 units/L (30-135) 05/28/18 08:45 CK-MB (CK-2) < 1.0 ng/mL (0.0-4.0) 05/28/18 08:45 CK-MB (CK-2) Rel Index 2.5 (0-4) 05/28/18 08:45 Troponin T < 0.010 ng/mL (0.00-0.029) 05/28/18 08:45 Total Protein 6.4 g/dL (6.3-8.2) 05/27/18 17:40 Albumin 3.7 g/dL (3.9-5) L 05/27/18 17:40 Albumin/Globulin Ratio 1.4 % 05/27/18 17:40 Urine Color Yellow (Yellow) 05/27/18 20:04 Urine Turbidity Clear (Clear) 05/27/18 20:04 Urine pH 7.0 (5.0-7.0) 05/27/18 20:04 Ur Specific [place] 1.011 (1.003-1.030) 05/27/18 20:04 Urine Protein <15 mg/dl mg/dL (Negative) 05/27/18 20:04 Urine Glucose (UA) Neg mg/dL (Negative) 05/27/18 20:04 Urine Ketones Neg mg/dL (Negative) 05/27/18 20:04 Urine Blood Neg (Negative) 05/27/18 20:04 Urine Nitrite Neg (Negative) 05/27/18 20:04 Urine Bilirubin Neg (Negative) 05/27/18 20:04 Urine Urobilinogen < 2.0 mg/dL (<2.0) 05/27/18 20:04 Ur Leukocyte Esterase Neg (Negative) 05/27/18 20:04 Urine WBC (Auto) < 1.0 /HPF (0.0-6.0) 05/27/18 20:04 Urine RBC (Auto) 1.0 /HPF (0.0-6.0) 05/27/18 20:04 Urine Mucus Few /HPF 05/27/18 20:04 Active Medications - Current Medications Current Medications: Generic Name Dose Route Start Last Admin Trade Name Freq PRN Reason Stop Dose Admin Acetaminophen 650 mg 05/27/18 21:19 05/28/18 05:23 Tylenol PO 650 mg Q4H PRN Administration Pain MILD(1-3)/Fever >100.5/ECHEVARRIA Arformoterol Tartrate 15 mcg 05/28/18 08:00 05/29/18 07:28 Brovana Nebu IH 15 mcg Q12HRT FAITH Administration Benzonatate 100 mg 05/28/18 06:00 05/29/18 05:42 Tessalon Perles PO Not Given Q8HR FAITH Bisacodyl 10 mg 05/28/18 04:00 Dulcolax [place] QDAY PRN Constipation Budesonide 1 mg 05/28/18 08:00 05/29/18 07:28 Pulmicort IH 1 mg Q12HRT FAITH Administration Docusate Sodium 100 mg 05/28/18 10:00 05/29/18 09:24 Colace PO 100 mg BID FAITH Administration Haloperidol Lactate 1 mg 05/28/18 19:40 Haldol IM Q6H PRN Agitation Labetalol HCl 100 mg 05/28/18 10:00 05/29/18 09:23 Normodyne PO 100 mg BID FAITH Administration Magnesium Hydroxide 30 ml 05/27/18 21:19 Milk Of Magnesia PO Q4H PRN Constipation Ondansetron HCl 4 mg 05/27/18 21:19 Zofran IV Q8H PRN Nausea And Vomiting Oxybutynin Chloride 5 mg 05/28/18 22:00 05/29/18 00:14 Ditropan PO Not Given QHS FAITH Pantoprazole Sodium 40 mg 05/28/18 10:00 05/29/18 09:24 Protonix PO 40 mg QDAY FAITH Administration Sodium Chloride 10 ml 05/27/18 22:00 05/29/18 09:23 Sodium Chloride Flush Syringe 10 Ml IV 10 ml BID FAITH Administration Sodium Chloride 10 ml 05/27/18 21:19 Sodium Chloride Flush Syringe 10 Ml IV PRN PRN LINE FLUSH Tiotropium [place] 1 puff 05/28/18 10:00 05/29/18 09:20 Spiriva IH Not Given Q24HR FAITH
[2018-05-30] MEDS: TESSALON PERLES PO SCH ×2 (06:01→13:57)
[2018-05-30 06:25] LABS: BUN/Creatinine Ratio 32; Blood Urea Nitrogen 16 mg/dL (7-17); Hemolysis Index 29
[2018-05-30] MEDS: PULMICORT IH SCH (08:02)
[2018-05-30] MEDS: BROVANA NEBU IH SCH (08:03)
[2018-05-30] MEDS: COLACE PO SCH (09:52)
[2018-05-30] MEDS: SODIUM CHLORIDE FLUSH SYRINGE 10 ML IV SCH (09:53)
[2018-05-30] MEDS: PROTONIX PO SCH (09:53)
[2018-05-30] MEDS: NORMODYNE PO SCH (09:54)
--- NOTE | 2018-05-30 10:31 | Discharge Summary ---
Providers - Providers Date of Admission: 05/27/18 21:19 Date of discharge: 05/30/18 Attending physician: YUAN CARTER 05/28/18 02:05 Consult to Physician [CONS] Routine Comment: Consulting Provider: ALEJANDRA HUMMEL Physician Instructions: Reason For Exam: cp 05/29/18 16:33 Physical Therapy Evaluation and Treat [CONS] Routine Comment: Reason For Exam: gen debility/evaln for home PT Primary care physician: CONSTRUCTION SAFETY MANAGER Hospitalization Reason for admission: Chest pain,abd oain and uncontrolled blood pressure Condition: Fair Pertinent studies: CT head CT abd and pelvis Abdominal US Hospital course: 87-year-old Yoruba female with PMHx of hypertension, COPD/asthma, OA, schizophrenia (on Olanzapine)was admitted with accelerated hypertension ,chest pain and abdominal pain x2 days. Managed with multiple anti hypertensives CT abdomen ,no acute abnormality,Symptoms improved,no new complaints,vital signs stable. 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] --Atypical chest pain; cardiology evaluated No complaints suggestive of chest pain --Abdominal pain; CT abdomen and pelvis no acute abnormalities noted Except for cholelithiasis, abdominal ultrasound no acute abnormalities Tolerating clear liquids, advance to soft diet --Accelerated hypertension; present on admission continue current antihypertensives and PRN medications --History of CVA with residual weakness supportive care Physical therapy occupational therapy --History of constipation; stool softeners as needed --Dementia; supportive care Disposition: [id number] HOME [facility] Time spent for discharge: 32 min Core Measure Documentation - Palliative Care Palliative Care/ Comfort Measures: Not Applicable - Core Measures Any of the following diagnoses?: none Exam - Constitutional Vitals: Temp Pulse Resp BP Pulse Ox 98.4 F 63 18 113/49 97 05/30/18 07:32 05/30/18 09:54 05/30/18 08:40 05/30/18 09:54 05/30/18 07:32 General appearance: Present: no acute distress, well-nourished - EENT Eyes: Present: PERRL, EOM intact - Neck Neck: Present: supple, normal ROM - Respiratory Respiratory effort: normal Respiratory: bilateral: diminished, negative: rales, rhonchi, wheezing - Cardiovascular Rhythm: regular Heart Sounds: Present: S1 & S2 - Extremities Extremities: no ischemia, No edema - Abdominal General gastrointestinal: Present: soft, non-tender, non-distended, normal bowel sounds - Integumentary Integumentary: Present: clear, warm - Musculoskeletal Musculoskeletal: generalized weakness - Psychiatric Psychiatric: other (minimally communicative) - Neurologic Neurologic: moves all extremities, other (minimally communicative) Plan Activity: advance as tolerated, fall precautions Diet: other (soft diet and advance as tolerated) Additional Instructions: Fall precautions. Aspiration precautions. Hold BP medications if blood pressure is less than 120/90. If Patient continues to have abdominal pain, advised to see private GI/surgery. No new prescriptions Follow up with: PRIMARY CAREMD [Primary Care Provider] - 3-5 Days MELBA CHICAS MD [Staff Physician] - 7 Days
[2018-05-30 14:35] VITALS: BP 142/58
[2018-05-30] MEDS: SPIRIVA IH SCH (14:39)
== END 2018-05-30 18:10 | disposition home health service (06) | DRG 71 ==
LOC: ED 16:23 → 4A 21:19 → 2B-ACE 05-30 02:12
PROVIDERS: ADMIT Internal Medicine; ATTEND Internal Medicine
DX: G93.41 Metabolic encephalopathy (principal); E87.1 Hypo-osmolality and hyponatremia; I10 Essential (primary) hypertension; J44.9 Chronic obstructive pulmonary disease, unspecified; M19.90 Unspecified osteoarthritis, unspecified site; F20.9 Schizophrenia, unspecified; R10.13 Epigastric pain; K80.20 Calculus of gallbladder without cholecystitis without obstruction; R07.89 Other chest pain; K59.00 Constipation, unspecified; F03.90 Unspecified dementia, unspecified severity, without behavioral disturbance, psychotic disturbance, mood disturbance, and anxiety; K21.9 Gastro-esophageal reflux disease without esophagitis; Z79.899 Other long term (current) drug therapy; I69.398 Other sequelae of cerebral infarction
CPT/HCPCS: 36415; 70450; 71045; 74176; 76705; 80048; 80053; 81001; 82140; 82550; 82553; 84484; 85025; 93005; 93010; 94640; 96374; 99291; G0378; J2060

== ENCOUNTER 2018-10-04 08:50 | Inpatient (IN) | payer MEDICARE ==
[2018-10-04] MEDS ORDERED: NACL 0.9% 1000 ML IV ONE (09:03)
[2018-10-04] MEDS ORDERED: ROCEPHIN/NS 2 GM/100 ML 2 GM/100 ML BAG IV SCH (09:03)
[2018-10-04] MEDS ORDERED: QUELICIN IV ONE (09:06)
[2018-10-04] MEDS ORDERED: AMIDATE IV ONE ×2 (09:06→14:24)
[2018-10-04] MEDS: DIPRIVAN 10 MG/ML 1,000 MG/100 ML BOTTLE IV SCH (09:30)
[2018-10-04] MEDS: ROCEPHIN/NS 2 GM/100 ML 2 GM/100 ML BAG IV SCH (09:33)
[2018-10-04] MEDS ORDERED: DIPRIVAN 10 MG/ML 1,000 MG/100 ML BOTTLE IV ONE (09:39)
[2018-10-04 09:43] LABS: Basophils % (Auto) 0.4 % (0.0-1.8); Eosinophils # (Auto) 0.2 K/mm3 (0.0-0.4); Hematocrit 31.3 % (30.3-42.9); Hemoglobin 10.6 gm/dl (10.1-14.3); Lymphocytes # (Auto) 0.4 K/mm3 (1.2-5.4); Mean Corpuscular HGB Conc 34 % (30-34); Mean Corpuscular Volume 91 fl (79-97); Monocytes # (Auto) 0.3 K/mm3 (0.0-0.8); Monocytes % (Auto) 6.6 % (0.0-7.3); Platelet Count 123 K/mm3 (140-440); Red Blood Count 3.45 M/mm3 (3.65-5.03); Red Cell Distribution Width 14.1 % (13.2-15.2)
--- NOTE | 2018-10-04 09:46 | XRay Report ---
CHEST 1 VIEW INDICATION: Endotracheal tube placement. Patient found unresponsive.. COMPARISON: 05/27/2018 report FINDINGS: Support devices: An endotracheal tube has been inserted which terminates in the proximal right mainst em bronchus. Heart: Heart size is borderline. Severe diffuse aortic calcifications. Lungs/Pleura: Partial atelectasis of the left lower lobe is suspected. There is mild pulmonary venous congestion and probable small left pleural effusion. Additional findings: None. IMPRESSION: Right mainstem bronchus intubation. Recommend retraction of the endotracheal tube by 4 cm. Partial atelectasis at the left lung base. Pulmonary venous congestion and probable small left pleural effusion. Signer Name: Cirilo Ko Jr, MD Signed: 10/04/2018 9:42 AM Workstation Name: [id number]
--- NOTE | 2018-10-04 09:59 | Cat Scan Report ---
CT head without contrast Clinical history: Altered mental status FINDINGS: There are old infarcts involving the thalami and left basal ganglia with associated ex vacu o dilatation of the left lateral ventricle. Additionally, there is extensive cerebral white matter di sease most consistent with microvascular angiopathy. The findings correlate with the previous CT of . There is no clear CT evidence of acute intracranial hemorrhage or significant mass effect. There is continued mild to moderate cerebral atrophy with associated prominence of the ventricular sy stem. There is extensive atherosclerotic calcification. There is mild mucosal thickening within the e thmoid air cells. All CT scans at this location are performed using the CT dose reduction for ALARA b y means of automated exposure control. IMPRESSION: There is continued extensive microvascular angiopathy as detailed above without CT evidence of acute intracranial hemorrhage. Signer Name: Bernardo Gannon MD Signed: 10/04/2018 9:55 AM Workstation Name: [id number]
--- NOTE | 2018-10-04 10:06 | Emergency Department Report ---
ED General Adult HPI - General Chief complaint: Altered Mental Status Stated complaint: AMS/RESP ISSUES Time Seen by Provider: 10/04/18 09:02 Source: EMS Mode of arrival: Stretcher Limitations: Other - History of Present Illness Initial comments: Patient is a 88-year-old [place]ian female who has past medical history of recent stroke in May 2018 as well as COPD who is presenting with altered mental status. Patient's son states that she actually had a fall where she slid out of bed onto her buttock 2 days ago. Patient's son has been staying with her at her home this weekend. Patient's son states that he fell asleep around 4 AM and at 8 AM when he went to check on her she was apparently to be in respiratory distress and was altered. Patient felt febrile to the son. EMS was called and the patient was noted to have a O2 sat in the 70s. Patient placed on a nonrebreather which did prove her activity just slightly in route. Blood sugar was 1099. Patient's blood pressure was in the 130s and route however she was hypertensive upon arrival. Patient is unable to give any additional history. Patient's poorly responsive to painful stimuli. - Related Data Home Medications Medication Instructions Recorded Confirmed Last Taken Oxybutynin [Ditropan] 5 mg PO QHS 04/17/14 05/27/18 05/26/18 Pantoprazole [Protonix TAB] 40 mg PO QDAY 04/17/14 05/27/18 05/27/18 Benzonatate [Tessalon Perles] 100 mg PO Q8HR 05/27/18 05/27/18 05/27/18 Bisacodyl [Bisac-Evac] 10 mg RC QDAY PRN 05/27/18 05/27/18 Unknown Labetalol [Labetalol 100mg TAB] 100 mg PO BID 05/27/18 05/27/18 05/27/18 Lubiprostone [Amitiza] 8 mcg PO QDAY 05/27/18 05/27/18 05/27/18 Symbicort 160-4.5 Mcg Inhaler 160 mcg INHALATION Q8H 05/27/18 05/27/18 Unknown Tiotropium Hodges [Spiriva 4 gm INHALATION Q8H 05/27/18 05/27/18 Unknown Respimat] Allergies Allergy/AdvReac Type Severity Reaction Status Date / Time No Known Allergies Allergy Verified 10/04/18 09:02 ED Review of Systems ROS: Stated complaint: AMS/RESP ISSUES Other details as noted in HPI Comment: Unobtainable due to pts medical conditions ED Past Medical Hx - Past Medical History Hx Hypertension: Yes Hx CVA: Yes Hx GERD: Yes (REFLUX) Hx COPD: Yes Hx Dementia: Yes Additional medical history: ANENIA;THYROID;ATELECTASIS - Social History Smoking Status: Unknown if ever smoked - Medications Home Medications: Home Medications Medication Instructions Recorded Confirmed Last Taken Type Oxybutynin [Ditropan] 5 mg PO QHS 04/17/14 05/27/18 05/26/18 History Pantoprazole [Protonix TAB] 40 mg PO QDAY 04/17/14 05/27/18 05/27/18 History Benzonatate [Tessalon Perles] 100 mg PO Q8HR 05/27/18 05/27/18 05/27/18 History Bisacodyl [Bisac-Evac] 10 mg RC QDAY PRN 05/27/18 05/27/18 Unknown History Labetalol [Labetalol 100mg TAB] 100 mg PO BID 05/27/18 05/27/18 05/27/18 History Lubiprostone [Amitiza] 8 mcg PO QDAY 05/27/18 05/27/18 05/27/18 History Symbicort 160-4.5 Mcg Inhaler 160 mcg INHALATION Q8H 05/27/18 05/27/18 Unknown History Tiotropium Hodges [Spiriva 4 gm INHALATION Q8H 05/27/18 05/27/18 Unknown History Respimat] ED Physical Exam - General Limitations: Language Barrier, Altered Mental Status, Other General appearance: lethargic, other (patient with a corneal reflexes however she has just minimal moaning with painful stimuli. Patient had no gag reflex and had a large amount of secretions in the mouth) - Head Head exam: Present: atraumatic, normocephalic - Eye Eye exam: Present: normal appearance, PERRL, EOMI - ENT ENT exam: Present: mucous membranes dry - Neck Neck exam: Present: normal inspection - Respiratory Respiratory exam: Present: respiratory distress (to), wheezes (right greater than left), rhonchi (diffuse). Absent: normal lung sounds bilaterally - Cardiovascular Cardiovascular Exam: Present: regular rate, normal rhythm, normal heart sounds. Absent: systolic murmur, diastolic murmur, rubs, gallop - GI/Abdominal GI/Abdominal exam: Present: soft, normal bowel sounds. Absent: distended, tenderness, guarding, rebound - Extremities Exam Extremities exam: Present: normal inspection - Back Exam Back exam: Present: normal inspection - Neurological Exam Neurological exam: Present: altered - Psychiatric Psychiatric exam: Present: normal affect, normal mood - Skin Skin exam: Present: warm, dry, intact, normal color. Absent: rash ED Course Vital Signs 10/04/18 10/04/18 10/04/18 09:21 09:45 09:55 Temperature 100.1 F H Pulse Rate 84 88 80 Respiratory 18 17 18 Rate Blood Pressure Blood Pressure 191/86 151/76 187/97 [Right] O2 Sat by Pulse 100 100 100 Oximetry 10/04/18 10/04/18 10/04/18 10:00 10:30 10:41 Temperature Pulse Rate 85 85 84 Respiratory 18 16 Rate Blood Pressure 213/117 Blood Pressure 187/97 [Right] O2 Sat by Pulse 100 100 100 Oximetry 10/04/18 10/04/18 10/04/18 10:45 11:00 11:15 Temperature Pulse Rate 84 85 85 Respiratory 16 16 18 Rate Blood Pressure 180/94 182/90 166/93 Blood Pressure [Right] O2 Sat by Pulse 100 99 95 Oximetry - Reevaluation(s) Reevaluation #1: 10/04/18 10:04 Review the x-ray report from Dr. Ko who is states that the patient's has a right mainstem intubation. I have alerted to restore therapists at this time to pull the tube up several centimeters in a reattempt x-ray to ensure that we're in proper position. Reevaluation #2: 10/04/18 11:59 Repeat chest x-ray shows no changes in the lung findings however the ET tube is well positioned - Intubation Time Out Performed: Yes Sedative: Etomidate (10mg) Paralytic: Succinylcholine (100mg) Laryngoscope: Sarah Size: 3 ET Tube Size: 7.5 Tube Secured Depth (cm): 22 Tube Secured Location: lips Tube Placement Confirmation: visualized tube passing t, equal breath sounds bilat, no breath sounds over epi, confirmation by capnometr Patient Tolerated Procedure: well Intubation Complications: none ED Medical Decision Making - Lab Data Result diagrams: 10/04/18 09:25 10/04/18 09:25 Lab Results 10/04/18 10/04/18 10/04/18 Range/Units 09:25 09:25 09:25 WBC 4.9 (4.5-11.0) K/mm3 RBC 3.45 L (3.65-5.03) M/mm3 Hgb 10.6 (10.1-14.3) gm/dl Hct 31.3 (30.3-42.9) % MCV 91 (79-97) fl MCH 31 (28-32) pg MCHC 34 (30-34) % RDW 14.1 (13.2-15.2) % Plt Count 123 L (140-440) K/mm3 Lymph % (Auto) 8.0 L (13.4-35.0) % [place] % (Auto) 6.6 (0.0-7.3) % Eos % (Auto) 3.0 (0.0-4.3) % Baso % (Auto) 0.4 (0.0-1.8) % Lymph # 0.4 L (1.2-5.4) K/mm3 [place] # 0.3 (0.0-0.8) K/mm3 Eos # 0.2 (0.0-0.4) K/mm3 Baso # 0.0 (0.0-0.1) K/mm3 Seg Neutrophils % 82.0 H (40.0-70.0) % Seg Neutrophils # 4.0 (1.8-7.7) K/mm3 POC ABG pH (7.35-7.45) POC ABG pCO2 (35-45) POC ABG pO2 (80-105) POC ABG HCO3 (22-26 mml/L) POC ABG Total CO2 (23-27mmol/L) POC ABG O2 Sat POC ABG Base Excess ((-2) - (+3)mmol/L) FiO2 % Sodium 132 L (137-145) mmol/L Potassium 3.9 (3.6-5.0) mmol/L Chloride 95.1 L (98-107) mmol/L Carbon Dioxide 25 (22-30) mmol/L Anion Gap 16 mmol/L BUN 15 (7-17) mg/dL Creatinine 0.5 L (0.7-1.2) mg/dL Estimated GFR > 60 ml/min BUN/Creatinine Ratio 30 % Glucose 126 H (65-100) mg/dL Lactic Acid 1.30 (0.7-2.0) mmol/L Calcium 8.5 (8.4-10.2) mg/dL Total Bilirubin 0.60 (0.1-1.2) mg/dL AST 13 (5-40) units/L ALT 13 (7-56) units/L Alkaline Phosphatase 62 (35-129) units/L Troponin T 0.074 H (0.00-0.029) ng/mL Total Protein 6.3 (6.3-8.2) g/dL Albumin 3.3 L (3.9-5) g/dL Albumin/Globulin Ratio 1.1 % Triglycerides 104 (2-149) mg/dL Cholesterol 198 (50-199) mg/dL LDL Cholesterol Direct 133 H (50-130) mg/dL HDL Cholesterol 64 H (40-59) mg/dL Cholesterol/HDL Ratio 3.09 % Urine Color (Yellow) Urine Turbidity (Clear) Urine pH (5.0-7.0) Ur Specific [place] (1.003-1.030) Urine Protein (Negative) mg/dL Urine Glucose (UA) (Negative) mg/dL Urine Ketones (Negative) mg/dL Urine Blood (Negative) Urine Nitrite (Negative) Urine Bilirubin (Negative) Urine Urobilinogen (<2.0) mg/dL Ur Leukocyte Esterase (Negative) Urine WBC (Auto) (0.0-6.0) /HPF Urine RBC (Auto) (0.0-6.0) /HPF U Epithel Cells (Auto) (0-13.0) /HPF Urine Bacteria (Auto) (Negative) /HPF Urine Mucus /HPF 10/04/18 10/04/18 Range/Units 10:18 Unknown WBC (4.5-11.0) K/mm3 RBC (3.65-5.03) M/mm3 Hgb (10.1-14.3) gm/dl Hct (30.3-42.9) % MCV (79-97) fl MCH (28-32) pg MCHC (30-34) % RDW (13.2-15.2) % Plt Count (140-440) K/mm3 Lymph % (Auto) (13.4-35.0) % [place] % (Auto) (0.0-7.3) % Eos % (Auto) (0.0-4.3) % Baso % (Auto) (0.0-1.8) % Lymph # (1.2-5.4) K/mm3 [place] # (0.0-0.8) K/mm3 Eos # (0.0-0.4) K/mm3 Baso # (0.0-0.1) K/mm3 Seg Neutrophils % (40.0-70.0) % Seg Neutrophils # (1.8-7.7) K/mm3 POC ABG pH 7.499 H (7.35-7.45) POC ABG pCO2 32.0 L (35-45) POC ABG pO2 139 H (80-105) POC ABG HCO3 24.9 (22-26 mml/L) POC ABG Total CO2 26 (23-27mmol/L) POC ABG O2 Sat 99 POC ABG Base Excess 2 ((-2) - (+3)mmol/L) FiO2 50 % Sodium (137-145) mmol/L Potassium (3.6-5.0) mmol/L Chloride (98-107) mmol/L Carbon Dioxide (22-30) mmol/L Anion Gap mmol/L BUN (7-17) mg/dL Creatinine (0.7-1.2) mg/dL Estimated GFR ml/min BUN/Creatinine Ratio % Glucose (65-100) mg/dL Lactic Acid (0.7-2.0) mmol/L Calcium (8.4-10.2) mg/dL Total Bilirubin (0.1-1.2) mg/dL AST (5-40) units/L ALT (7-56) units/L Alkaline Phosphatase (35-129) units/L Troponin T (0.00-0.029) ng/mL Total Protein (6.3-8.2) g/dL Albumin (3.9-5) g/dL Albumin/Globulin Ratio % Triglycerides (2-149) mg/dL Cholesterol (50-199) mg/dL LDL Cholesterol Direct (50-130) mg/dL HDL Cholesterol (40-59) mg/dL Cholesterol/HDL Ratio % Urine Color Yellow (Yellow) Urine Turbidity Clear (Clear) Urine pH 5.0 (5.0-7.0) Ur Specific [place] 1.016 (1.003-1.030) Urine Protein 30 mg/dl (Negative) mg/dL Urine Glucose (UA) 50 (Negative) mg/dL Urine Ketones Neg (Negative) mg/dL Urine Blood Neg (Negative) Urine Nitrite Neg (Negative) Urine Bilirubin Neg (Negative) Urine Urobilinogen < 2.0 (<2.0) mg/dL Ur Leukocyte Esterase Neg (Negative) Urine WBC (Auto) 6.0 (0.0-6.0) /HPF Urine RBC (Auto) 5.0 (0.0-6.0) /HPF U Epithel Cells (Auto) < 1.0 (0-13.0) /HPF Urine Bacteria (Auto) 1+ (Negative) /HPF Urine Mucus Few /HPF - EKG Data -: EKG Interpreted by Ma EKG shows normal: sinus rhythm, axis, intervals, QRS complexes, ST-T waves Rate: normal - EKG Data Interpretation: normal EKG - Radiology Data [facility] [address] [place] [address] Cat Scan Report Signed Patient: CLYDE CELESTE MR#: [id number] : 1930 Acct:[id number] Age/Sex: 88 / F ADM Date: 10/04/18 Loc: ED Attending Dr: Ordering Physician: RIRI OCHOA MD Date of Service: 10/04/18 Procedure(s): CT head/brain wo con Accession Number(s): [id number] cc: RIRI OCHOA MD CT head without contrast Clinical history: Altered mental status FINDINGS: There are old infarcts involving the thalami and left basal ganglia with associated ex vacuo dilatation of the left lateral ventricle. Additionally, there is extensive cerebral white matter disease most consistent with microvascular angiopathy. The findings co rrelate with the previous CT of 05/27/2018. There is no clear CT evidence of acute intracranial hemorrhage or significant mass effect. There is continued mild to moderate cerebral atrophy with associated prominence of the ventricular system. There is extensive atherosclerotic calcification. There is mild mucosal thickening within the ethmoid air cells. All CT scans at this location are performed using the CT dose reduction for ALARA by means of automated exposure control. IMPRESSION: There is continued extensive microvascular angiopathy as detailed above without CT evidence of acute intracranial hemorrhage. Signer Name: Bernardo Gannon MD Signed: 10/04/2018 9:55 AM Workstation Name: [id number] Transcribed By: MR Dictated By: Bernardo Gannon MD Electronically Authenticated By: Bernardo Gannon MD Signed Date/Time: 10/04/18 0955 [facility] [address] [place] [address] XRay Report Signed Patient: CLYDE CELESTE MR#: [id number] : 1930 Acct:[id number] Age/Sex: 88 / F ADM Date: 10/04/18 Loc: ED Attending Dr: Ordering Physician: RIRI OCHOA MD Date of Service: 10/04/18 Procedure(s): XR chest 1V ap Accession Number(s): [id number] cc: RIRI OCHOA MD Fluoro Time In Minutes: CHEST 1 VIEW INDICATION: Endotracheal tube placement. Patient found unresponsive.. COMPARISON: 05/27/2018 report FINDINGS: Support devices: An endotracheal tube has been inserted which terminates in the proximal right mainstem bronchus. Heart: Heart size is borderline. Severe diffuse aortic calcifications. Lungs/Pleura: Partial atelectasis of the left lower lobe is suspected. There is mild pulmonary venous congestion and probable small left pleural effusion. Additional findings: None. IMPRESSION: Right mainstem bronchus intubation. Recommend retraction of the endotracheal tube by 4 cm. Partial atelectasis at the left lung base. Pulmonary venous congestion and probable small left pleural effusion. Signer Name: Cirilo Ko Jr, MD Signed: 10/04/2018 9:42 AM Workstation Name: [id number] Transcribed By: TTR Dictated By: CIRILO KO JR, MD Electronically Authenticated By: CIRILO KO JR, MD Signed Date/Time: 10/04/18 0942 - Medical Decision Making Condition is a 88-year-old [place] female who is presenting in respiratory distress with altered mental status. Patient felt warm to the son prior to arrival. Patient was intubated me secondary to having a decreased gag and is now handling her oral secretions well. She was intubated without issue. Patient noted to have a blood pressure that was continued to rise. Patient likely with a hypertensive encephalopathy. Patient started on Cardene drip. Patient's metastases sepsis criteria and was started on Rocephin and azithromycin. Patient's chest x-ray does show numerous lung findings. The patient likely with a pneumonia. She has chronic changes as well. Patient to be admitted to the ICU under Dr. Dasilva. Critical Care Time: Yes (30) Critical care attestation.: If time is entered above; I have spent that time in minutes in the direct care of this critically ill patient, excluding procedure time. ED Disposition Clinical Impression: Pneumonia, Pleural effusion, Hypertensive encephalopathy Altered mental state Qualifiers: Altered mental status type: unspecified Qualified Code(s): R41.82 - Altered mental status, unspecified Disposition: -09 OP ADMIT IP TO THIS HOSP Is pt being admited?: Yes Does the pt Need Aspirin: No Condition: Stable Instructions: Bacterial Pneumonia (ED) Referrals: PRIMARY CARE, [Referring] - 3-5 Days Time of Disposition: 12:03
[2018-10-04 10:08] LABS: Alanine Aminotransferase 13 units/L (7-56); Albumin 3.3 g/dL (3.9-5); BUN/Creatinine Ratio 30; Blood Urea Nitrogen 15 mg/dL (7-17); Calcium 8.5 mg/dL (8.4-10.2); Hemolysis Index 5
[2018-10-04 10:20] LABS: LDL Cholesterol,Direct 133 mg/dL (50-130)
[2018-10-04 10:30] LABS: Chol/HDL Ratio 3.09 %; HDL Cholesterol 64 mg/dL (40-59)
--- NOTE | 2018-10-04 10:47 | XRay Report ---
CHEST 1 VIEW 10/04/2018 10:31 AM INDICATION / CLINICAL INFORMATION: re-image after adjusting tube. COMPARISON: 9:17 AM FINDINGS: SUPPORT DEVICES: Endotracheal tube has been pulled back with the tip now 3.8 cm above the clifford in e xpected position. HEART / MEDIASTINUM: Stable. LUNGS / PLEURA: Bibasilar densities with small left pleural effusion are unchanged. No pneumothorax. ADDITIONAL FINDINGS: No significant additional findings. IMPRESSION: 1. Endotracheal tube in expected position. Signer Name: Dee Wagner MD Signed: 10/04/2018 10:43 AM Workstation Name: [id number]
[2018-10-04] MEDS: ZITHROMAX 500 MG in NACL 0.9% 250ML 250 ML IV SCH (11:00)
[2018-10-04] MEDS ORDERED: CARDENE 50 MG in NACL 0.9% 250ML 230 ML IV SCH (11:00)
[2018-10-04 11:18] LABS: Bacteria,Urine 1+ /HPF (Negative); Bilirubin,Urine NEG (Negative); Blood,Urine NEG (Negative); Color,Urine Yellow (Yellow); Mucus,Urine FEW /HPF; Urobilinogen,Urine < 2.0 mg/dL (<2.0)
[2018-10-04] MEDS ORDERED: VASELINE LIP THERAPY TP PRN (11:20)
[2018-10-04] MEDS ORDERED: ARTIFICIAL TEARS OPHTH OINT OU PRN (11:20)
--- NOTE | 2018-10-04 11:44 | History and Physical Report ---
History of Present Illness Chief complaint: My mom is real sick History of present illness: 88 YO Female with HTN, Hypothyroidism, Asthma, Anemia,Schizophrenia, COPD, GERD, Dementia, CVA presents to ED for evaluation. Pt is intubated and on vent support at the time of my evaluation. Pt is unable to provide history. Pt history taken from son who is at bedside during exam and interview. As per son, the patient has experienced confusion, weakness over the past 4 days with worsening symptoms over the past 2 days. Pt has experienced a fall in the past 2 days. Pt son reports that upon awakening this morning, he went to check on his mother and found her to be in respiratory distress and having difficulty breathing. EMS was notified, and upon arrival the patient was found to be in severe respiratory distress with SaO2 in the 70's. Pt transported to [facility] and placed on supplemental oxygen via NRB mask. Pt seen and evaluated in ED found to have Acute Hypoxemic Respiratory Failure, NSTEMI, LLL Pneumonia, and Hyponatremia Syndrome. Pt intubated and placed on vent support. Pt admitted to ICU. Pulmonary team consulted. Cardiology team consulted. No reports of fever, chills, CP, Palpitations, NVD, Productive cough, skin rash, or known ill contacts. Prior admission on 05/27/18 reviewed. All medication listed at time of admission has been reconciled. Past History Past Medical History: COPD, GERD, hypertension, hypothyroidism, other (Demenita,Hyponatremia) Past Surgical History: No surgical history Social history: single Family history: hypertension Medications and Allergies Allergies Allergy/AdvReac Type Severity Reaction Status Date / Time No Known Allergies Allergy Verified 10/04/18 09:02 Home Medications Medication Instructions Recorded Confirmed Last Taken Type Oxybutynin [Ditropan] 5 mg PO QHS 04/17/14 05/27/18 05/26/18 History Pantoprazole [Protonix TAB] 40 mg PO QDAY 04/17/14 05/27/18 05/27/18 History Benzonatate [Tessalon Perles] 100 mg PO Q8HR 05/27/18 05/27/18 05/27/18 History Bisacodyl [Bisac-Evac] 10 mg RC QDAY PRN 05/27/18 05/27/18 Unknown History Labetalol [Labetalol 100mg TAB] 100 mg PO BID 05/27/18 05/27/18 05/27/18 History Lubiprostone [Amitiza] 8 mcg PO QDAY 05/27/18 05/27/18 05/27/18 History Symbicort 160-4.5 Mcg Inhaler 160 mcg INHALATION Q8H 05/27/18 05/27/18 Unknown History Tiotropium [place] [Spiriva 4 gm INHALATION Q8H 05/27/18 05/27/18 Unknown History Respimat] Active Meds: Active Medications Hydrophilic Ointment (Vaseline Lip Therapy) 1 applic TP Q2HR PRN PRN Reason: Dry Lips Azithromycin 500 mg/ Sodium (Chloride) 250 mls @ 250 mls/hr IV Q24HR FAITH; Protocol Last Admin: 10/04/18 11:00 Dose: 250 mls/hr Documented by: Ceftriaxone Sodium (Rocephin/Ns 2 Gm/100 Ml) 2 gm in 100 mls @ 200 mls/hr IV Q24HR FAITH; Protocol Last Admin: 10/04/18 09:33 Dose: 200 mls/hr Documented by: Nicardipine HCl 50 mg/ Sodium (Chloride) 250 mls @ 25 mls/hr IV TITR FAITH; Protocol Last Admin: 10/04/18 11:01 Dose: 5 mg/hr, 25 mls/hr Documented by: Propofol (Diprivan 10 Mg/Ml) 1,000 mg in 100 mls @ 1.129 mls/hr IV TITR FAITH; Protocol Midazolam HCl (Versed) 2 mg IV ONCE NR Stop: 10/04/18 23:59 Multi-Ingred Cream/Lotion/Oil/Oint (Artificial Tears Ophth Oint) 1 applic OU Q4HR PRN PRN Reason: Dry Eye(s) Review of Systems ROS unobtainable: due to endotracheal tube, due to mental status Exam - Constitutional Vitals: Temp Pulse Resp BP Pulse Ox 100.1 F H 85 18 166/93 95 10/04/18 09:45 10/04/18 11:15 10/04/18 11:15 10/04/18 11:15 10/04/18 11:15 General appearance: Present: severe distress - EENT Eyes: Present: miosis - Neck Neck: Present: supple, normal ROM - Respiratory Respiratory effort: labored Respiratory: bilateral: diminished, rhonchi - Cardiovascular Heart Sounds: Present: S1 & S2. Absent: rub, click - Extremities Extremities: pulses symmetrical, No edema Peripheral Pulses: within normal limits - Abdominal General gastrointestinal: Present: soft, non-tender, non-distended, normal bowel sounds Female genitourinary: Present: normal - Integumentary Integumentary: Present: clear, dry - Musculoskeletal Musculoskeletal: generalized weakness - Psychiatric Psychiatric: no appropriate mood/affect, no intact judgment & insight, no memory intact - Neurologic Neurologic: no gait normal Results - Labs CBC & Chem 7: 10/04/18 09:25 10/04/18 09:25 Labs: Abnormal lab results 10/04/18 10/04/18 Range/Units 09:25 09:25 RBC 3.45 L (3.65-5.03) M/mm3 Plt Count 123 L (140-440) K/mm3 Lymph % (Auto) 8.0 L (13.4-35.0) % Lymph # 0.4 L (1.2-5.4) K/mm3 Seg Neutrophils % 82.0 H (40.0-70.0) % Sodium 132 L (137-145) mmol/L Chloride 95.1 L (98-107) mmol/L Creatinine 0.5 L (0.7-1.2) mg/dL Glucose 126 H (65-100) mg/dL Troponin T 0.074 H (0.00-0.029) ng/mL Albumin 3.3 L (3.9-5) g/dL LDL Cholesterol Direct 133 H (50-130) mg/dL HDL Cholesterol 64 H (40-59) mg/dL Assessment and Plan - Patient Problems (1) Respiratory failure Current Visit: Yes Status: Acute Qualifiers: Chronicity: acute Respiratory failure complication: hypoxia Qualified Code(s): J96.01 - Acute respiratory failure with hypoxia Plan to address problem: Admit to ICU, Wean vent as tolerated, supplemental oxygen, nebulizer therapy, ABG, Pulmonary team consulted in ED, Chest X ray, pulse oximetry, The high probability of a clinically significant, sudden or life threatening deterioration of the [Pulmonary, Renal, Neuro] system(s) required my full and direct attention, intervention and personal management. The aggregate critical care time was [65] minutes. This time is in addition to time spent performing reported procedures but includes the following: [x] Data Review and interpretation [x] Patient assessment and monitoring of vital signs [x] Documentation [x] Medication orders and management (2) Pneumonia Current Visit: Yes Status: Acute Qualifiers: Laterality: left Lung location: lower lobe of lung Plan to address problem: IV antibiotic, Chest x ray, blood cultures, nebulizer therapy, CBC, CMP. (3) Hyponatremia syndrome Current Visit: Yes Status: Acute Plan to address problem: IVF resuscitation therapy, repeat bmp, (4) NSTEMI (non-ST elevated myocardial infarction) Current Visit: Yes Status: Acute Plan to address problem: Cardiology consulted in ED, serial troponin, Echo, therapeutic lovenox, serial ekg, thyroid panel, bnp, d dimer. (5) Encephalopathy Current Visit: Yes Status: Acute Plan to address problem: CT Head, neuro check, thyroid panel, CMP, IVF resuscitation therapy (6) GERD (gastroesophageal reflux disease) Current Visit: Yes Status: Acute Qualifiers: Esophagitis presence: without esophagitis Qualified Code(s): K21.9 - Gastro-esophageal reflux disease without esophagitis Plan to address problem: PPI therapy, (7) COPD (chronic obstructive pulmonary disease) Current Visit: Yes Status: Acute Qualifiers: Chronic bronchitis type: mixed simple and mucopurulent Plan to address problem: supplemental oxygen, nebulizer therapy, IV steroid therapy, pulmonary consulted, empiric antibiotic therapy (8) Hypothyroidism Current Visit: Yes Status: Acute Qualifiers: Hypothyroidism type: unspecified Qualified Code(s): E03.9 - Hypothyroidism, unspecified Plan to address problem: continue current therapy, thyroid panel. (9) DVT prophylaxis Current Visit: Yes Status: Acute Plan to address problem: SCD to BLE, therapeutic lovenox (10) Advance care planning Current Visit: Yes Status: Acute Plan to address problem: 30 minutes additional care time spent discussing treatment plan with son. Pt prognosis discussed. Will continue aggressive therapy at this time.
[2018-10-04] MEDS ORDERED: PROVENTIL IH PRN (11:45)
[2018-10-04] MEDS ORDERED: SODIUM CHLORIDE FLUSH SYRINGE 10 ML IV PRN ×2 (11:45)
[2018-10-04] MEDS ORDERED: NITROSTAT SL PRN (11:45)
[2018-10-04] MEDS ORDERED: BABY ASPIRIN PO STA (11:45)
[2018-10-04] MEDS ORDERED: VERSED IV NR (12:00)
--- NOTE | 2018-10-04 12:47 | XRay Report ---
ABDOMEN 1 VIEW 10/04/18 11:06 AM INDICATION / CLINICAL INFORMATION: VERIFY PLACEMENT OF OG TUBE. COMPARISON: None available. FINDINGS: TUBES / LINES: Esophagogastric tube is doubled back on itself at the gastroesophageal junction with t he tip directed toward the head. BOWEL GAS PATTERN: No significant abnormality. FREE AIR / EXTRALUMINAL GAS: None seen. ADDITIONAL FINDINGS: No significant additional findings. IMPRESSION: 1. Esophagogastric tube doubled back on itself at the gastroesophageal junction. The tube should be r eplaced or repositioned. Signer Name: Dee Wagner MD Signed: 10/04/2018 12:43 PM Workstation Name: [id number]
[2018-10-04 12:52] LABS: Free T4 (Free Thyroxine) 1.34 ng/dL (0.76-1.46)
[2018-10-04] MEDS ORDERED: PEPCID IV SCH (14:00)
[2018-10-04] MEDS ORDERED: VERSED IV ONE (14:24)
[2018-10-04] MEDS ORDERED: QUELICIN ONE (14:24)
--- NOTE | 2018-10-04 14:33 | Consultation ---
History of Present Illness Consult date: 10/04/18 Requesting physician: LURDES WHARTON Consult reason: abnormal cardiac enzymes History of present illness: Ms. Hein is an 88 y/o female who presented to the ED after her son found her unresponsive in bed. EMS found her to be in severe respiratory distress. According to her son, she suffered a fall on Thursday, but was evaluated and released; afterward, she was in her normal state of health until this AM when s he could not be aroused. She is unknown to our practice. She has a history of hypertension, hypothyroidism, asthma, anemia, COPD, GERD, past CVA, dementia and schizophrenia. On examination, she is intubated and sedated. Initial troponin 0.07 and EKG revealed SR with RBBB. A CXR found a small left pleural effusion, left basilar partial atelectasis and pulmonary venous congestion. A head CT was negative. An echocardiogram in April 2018 found an LVEF of 65%, moderate LVH, mild MR, mild TR, mildly dilated LA and mildly dilated RA. Past History Past Medical History: COPD, GERD, hypertension, hypothyroidism, other (Demenita,Hyponatremia) Past Surgical History: No surgical history Social history: single, lives with family Family history: hypertension Medications and Allergies Allergies Allergy/AdvReac Type Severity Reaction Status Date / Time No Known Allergies Allergy Verified 10/04/18 09:02 Home Medications Medication Instructions Recorded Confirmed Last Taken Type Oxybutynin [Ditropan] 5 mg PO QHS 04/17/14 05/27/18 05/26/18 History Pantoprazole [Protonix TAB] 40 mg PO QDAY 04/17/14 05/27/18 05/27/18 History Benzonatate [Tessalon Perles] 100 mg PO Q8HR 05/27/18 05/27/18 05/27/18 History Bisacodyl [Bisac-Evac] 10 mg RC QDAY PRN 05/27/18 05/27/18 Unknown History Labetalol [Labetalol 100mg TAB] 100 mg PO BID 05/27/18 05/27/18 05/27/18 History Lubiprostone [Amitiza] 8 mcg PO QDAY 05/27/18 05/27/18 05/27/18 History Symbicort 160-4.5 Mcg Inhaler 160 mcg INHALATION Q8H 05/27/18 05/27/18 Unknown History Tiotropium [place] [Spiriva 4 gm INHALATION Q8H 05/27/18 05/27/18 Unknown History Respimat] Active Meds: Active Medications Albuterol (Proventil) 2.5 mg IH Q3HRT PRN PRN Reason: Shortness Of Breath Enoxaparin Sodium (Lovenox) 40 mg SUB-Q Q12HR FAITH Famotidine (Pepcid) 20 mg IV DAILY FAITH Hydrophilic Ointment (Vaseline Lip Therapy) 1 applic TP Q2HR PRN PRN Reason: Dry Lips Azithromycin 500 mg/ Sodium (Chloride) 250 mls @ 250 mls/hr IV Q24HR FAITH; Protocol Last Admin: 10/04/18 11:00 Dose: 250 mls/hr Documented by: Ceftriaxone Sodium (Rocephin/Ns 2 Gm/100 Ml) 2 gm in 100 mls @ 200 mls/hr IV Q24HR FAITH; Protocol Last Admin: 10/04/18 09:33 Dose: 200 mls/hr Documented by: Nicardipine HCl 50 mg/ Sodium (Chloride) 250 mls @ 25 mls/hr IV TITR FAITH; Protocol Last Admin: 10/04/18 11:01 Dose: 5 mg/hr, 25 mls/hr Documented by: Propofol (Diprivan 10 Mg/Ml) 1,000 mg in 100 mls @ 1.129 mls/hr IV TITR FAITH; Protocol Last Titration: 10/04/18 14:00 Dose: 17 mcg/kg/min, 3.84 mls/hr Documented by: Midazolam HCl (Versed) 2 mg IV ONCE NR Stop: 10/04/18 23:59 Last Admin: 10/04/18 09:10 Dose: 2 mg Documented by: Multi-Ingred Cream/Lotion/Oil/Oint (Artificial Tears Ophth Oint) 1 applic OU Q4HR PRN PRN Reason: Dry Eye(s) Nitroglycerin (Nitrostat) 0.4 mg SL Q5M PRN PRN Reason: Chest Pain Pantoprazole Sodium (Protonix) 20 mg PO QDAY FAITH Sodium Chloride (Sodium Chloride Flush Syringe 10 Ml) 10 ml IV BID FAITH Sodium Chloride (Sodium Chloride Flush Syringe 10 Ml) 10 ml IV PRN PRN PRN Reason: LINE FLUSH Sodium Chloride (Sodium Chloride Flush Syringe 10 Ml) 10 ml IV PRN PRN PRN Reason: LINE FLUSH Review of Systems ROS unobtainable: due to endotracheal tube Physical Examination Last Vital Signs Temp 99.2 F 10/04/18 14:29 Pulse 89 10/04/18 14:15 Resp 15 10/04/18 14:15 BP 129/70 10/04/18 14:15 Pulse Ox 99 10/04/18 14:15 General appearance: other (intubated and sedated) HEENT: Positive: Normocephaly Neck: Positive: trachea midline Cardiac: Positive: Reg Rate and Rhythm Lungs: Positive: Ventilated Respirations Neuro: Positive: Other (JOSHUA - intubated) Abdomen: Positive: Unremarkable Female genitourinary: deferred Skin: Positive: Clear, Bruising (left calf ) Musculoskeletal: Decreased Range of Motion Extremities: Present: normal Results 10/04/18 09:25 10/04/18 09:25 Cardiac Enzymes 10/04/18 Range/Units 09:25 AST 13 (5-40) units/L Lipids 10/04/18 Range/Units 09:25 Triglycerides 104 (2-149) mg/dL Cholesterol 198 (50-199) mg/dL HDL Cholesterol 64 H (40-59) mg/dL Cholesterol/HDL Ratio 3.09 % CBC 10/04/18 Range/Units 09:25 WBC 4.9 (4.5-11.0) K/mm3 RBC 3.45 L (3.65-5.03) M/mm3 Hgb 10.6 (10.1-14.3) gm/dl Hct 31.3 (30.3-42.9) % Plt Count 123 L (140-440) K/mm3 Lymph # 0.4 L (1.2-5.4) K/mm3 [place] # 0.3 (0.0-0.8) K/mm3 Eos # 0.2 (0.0-0.4) K/mm3 Baso # 0.0 (0.0-0.1) K/mm3 Comprehensive Metabolic Panel 10/04/18 Range/Units 09:25 Sodium 132 L (137-145) mmol/L Potassium 3.9 (3.6-5.0) mmol/L Chloride 95.1 L (98-107) mmol/L Carbon Dioxide 25 (22-30) mmol/L BUN 15 (7-17) mg/dL Creatinine 0.5 L (0.7-1.2) mg/dL Glucose 126 H (65-100) mg/dL Calcium 8.5 (8.4-10.2) mg/dL AST 13 (5-40) units/L ALT 13 (7-56) units/L Alkaline Phosphatase 62 (35-129) units/L Total Protein 6.3 (6.3-8.2) g/dL Albumin 3.3 L (3.9-5) g/dL - Imaging and Cardiology Echo: report reviewed (04/2018: LVEF of 65%, moderate LVH, mild MR, mild TR, mildly dilated LA and mildly dilated RA. ) EKG: report reviewed (SR with RBBB) EKG interpretations - EKG Sinus rhythms and dysrhythmias: sinus rhythm AV and intraventricular conduction: right bundle branch block Assessment and Plan Ms. Hein is an 88 y/o female who presented to the ED in severe respiratory distress, requiring intubation. The etiology is likely infectious. Recommend trending troponins. May benefit from ischemic evaluation prior to discharge. Will continue supportive care for now. Further recommendations pending hospital course. The patient has been seen in conjunction with Dr. Rock, who agrees with the assessment and plan. - Patient Problems (1) Respiratory failure Current Visit: Yes Status: Acute Qualifiers: Chronicity: acute Respiratory failure complication: hypoxia Qualified Code(s): J96.01 - Acute respiratory failure with hypoxia (2) COPD (chronic obstructive pulmonary disease) Current Visit: Yes Status: Acute Qualifiers: Chronic bronchitis type: mixed simple and mucopurulent (3) Pleural effusion Current Visit: Yes Status: Acute (4) Pneumonia Current Visit: Yes Status: Acute (5) History of hemorrhagic cerebrovascular accident (CVA) with residual deficit Current Visit: No Status: Chronic (6) GERD (gastroesophageal reflux disease) Current Visit: No Status: Chronic Qualifiers: Esophagitis presence: without esophagitis Qualified Code(s): K21.9 - Gastro-esophageal reflux disease without esophagitis
[2018-10-04] MEDS: SODIUM CHLORIDE FLUSH SYRINGE 10 ML IV SCH (21:00)
[2018-10-04] MEDS ORDERED: LOVENOX SUB-Q SCH (22:00)
[2018-10-05] MEDS: DIPRIVAN 10 MG/ML 1,000 MG/100 ML BOTTLE IV SCH ×2 (02:39→15:20)
[2018-10-05] MEDS: LOVENOX SUB-Q SCH ×3 (02:41→21:52)
[2018-10-05 06:09] LABS: Basophils % (Auto) 0.2 % (0.0-1.8); Eosinophils # (Auto) 0.2 K/mm3 (0.0-0.4); Eosinophils % (Auto) 3.1 % (0.0-4.3); Hematocrit 29.3 % (30.3-42.9); Hemoglobin 10.2 gm/dl (10.1-14.3); Lymphocytes # (Auto) 0.6 K/mm3 (1.2-5.4); Lymphocytes % (Auto) 12.4 % (13.4-35.0); Mean Corpuscular HGB Conc 35 % (30-34); Mean Corpuscular Volume 90 fl (79-97); Monocytes # (Auto) 0.4 K/mm3 (0.0-0.8); Monocytes % (Auto) 8.6 % (0.0-7.3); Platelet Count 130 K/mm3 (140-440); Red Blood Count 3.24 M/mm3 (3.65-5.03); Red Cell Distribution Width 14.2 % (13.2-15.2)
[2018-10-05 06:36] LABS: Albumin 2.8 g/dL (3.9-5); BUN/Creatinine Ratio 25; Blood Urea Nitrogen 10 mg/dL (7-17); Calcium 8.2 mg/dL (8.4-10.2); Hemolysis Index 6
[2018-10-05 06:48] LABS: Alanine Aminotransferase < 5 units/L (7-56)
--- NOTE | 2018-10-05 06:57 | Event Note ---
Date: 10/05/18 Potassium of 2.9 this am. Ordered stat magnesium, and potassium replacement
[2018-10-05] MEDS ORDERED: POTASSIUM CHLORIDE FEEDTUBE ONE ×3 (07:30→12:00)
[2018-10-05] MEDS ORDERED: PROTONIX PO ONE ×2 (09:07→09:45)
--- NOTE | 2018-10-05 09:08 | Progress Note ---
Assessment and Plan Assessment and plan: Acute respiratory failure. Intubated, on ventilator Pulm following Fever blood cultures drawn To r/o sepsis consult ID Possible left lower lobe pneumonia Rocephin, Zithromax Hypertension Hydralazine iv prn Resume labetalol elevated Troponin cardiology following Toxic metabolic encephalopathy Hypothyroidism Monitor Dementia. supportive care Hypokalemia Replace hyponatremia Discussed with son at bedside Full code status History Interval history: Patient still intubated Elevated BP Hospitalist Physical - Physical exam Narrative exam: Gen: Not in acute distress, lying in bed, intubated,sedated HEENT: Normocephalic, atraumatic Neck: supple, no JVD Heart: S1 and S2 reg, no murmurs, rubs or gallop Lungs: Clear, no crackles, no rhonchi Abd: soft, non tender, non distended, normal BS, Ext: No edema, no clubbing, no cyanosis Neuro: intubated - Constitutional Vitals: Temp Pulse Resp BP Pulse Ox 98.1 F 73 14 166/50 100 10/05/18 04:00 10/05/18 07:58 10/05/18 06:32 10/05/18 07:58 10/05/18 07:58 General appearance: Present: other (intubated and sedated) Results - Labs CBC & Chem 7: 10/05/18 05:49 10/05/18 05:49 Labs: Laboratory Last Values WBC 4.9 K/mm3 (4.5-11.0) 10/05/18 05:49 RBC 3.24 M/mm3 (3.65-5.03) L 10/05/18 05:49 Hgb 10.2 gm/dl (10.1-14.3) 10/05/18 05:49 Hct 29.3 % (30.3-42.9) L 10/05/18 05:49 MCV 90 fl (79-97) 10/05/18 05:49 MCH 32 pg (28-32) 10/05/18 05:49 MCHC 35 % (30-34) H 10/05/18 05:49 RDW 14.2 % (13.2-15.2) 10/05/18 05:49 Plt Count 130 K/mm3 (140-440) L 10/05/18 05:49 Lymph % (Auto) 12.4 % (13.4-35.0) L 10/05/18 05:49 [place] % (Auto) 8.6 % (0.0-7.3) H 10/05/18 05:49 Eos % (Auto) 3.1 % (0.0-4.3) 10/05/18 05:49 Baso % (Auto) 0.2 % (0.0-1.8) 10/05/18 05:49 Lymph # 0.6 K/mm3 (1.2-5.4) L 10/05/18 05:49 [place] # 0.4 K/mm3 (0.0-0.8) 10/05/18 05:49 Eos # 0.2 K/mm3 (0.0-0.4) 10/05/18 05:49 Baso # 0.0 K/mm3 (0.0-0.1) 10/05/18 05:49 Seg Neutrophils % 75.7 % (40.0-70.0) H 10/05/18 05:49 Seg Neutrophils # 3.7 K/mm3 (1.8-7.7) 10/05/18 05:49 1325.24 ng/mlDDU (0-234) H 10/04/18 Unknown POC ABG pH 7.528 (7.35-7.45) H 10/05/18 04:09 POC ABG pCO2 30.5 (35-45) L 10/05/18 04:09 POC ABG pO2 166 (80-105) H 10/05/18 04:09 POC ABG HCO3 25.4 (22-26 mml/L) 10/05/18 04:09 POC ABG Total CO2 26 (23-27mmol/L) 10/05/18 04:09 POC ABG O2 Sat 100 10/05/18 04:09 POC ABG Base Excess 3 ((-2) - (+3)mmol/L) 10/05/18 04:09 40 % 10/05/18 04:09 Sodium 141 mmol/L (137-145) D 10/05/18 05:49 Potassium 2.9 mmol/L (3.6-5.0) L* D 10/05/18 05:49 Chloride 104.4 mmol/L (98-107) 10/05/18 05:49 Carbon Dioxide 25 mmol/L (22-30) 10/05/18 05:49 14 mmol/L 10/05/18 05:49 BUN 10 mg/dL (7-17) 10/05/18 05:49 0.4 mg/dL (0.7-1.2) L 10/05/18 05:49 Estimated GFR > 60 ml/min 10/05/18 05:49 25 % 10/05/18 05:49 Glucose 93 mg/dL (65-100) 10/05/18 05:49 Lactic Acid 1.90 mmol/L (0.7-2.0) 10/04/18 12:13 Calcium 8.2 mg/dL (8.4-10.2) L 10/05/18 05:49 Magnesium 2.20 mg/dL (1.7-2.3) 10/05/18 07:14 0.50 mg/dL (0.1-1.2) 10/05/18 05:49 AST < 5 units/L (5-40) L 10/05/18 05:49 ALT < 5 units/L (7-56) L 10/05/18 05:49 77 units/L (35-129) 10/05/18 05:49 0.075 ng/mL (0.00-0.029) H D 10/04/18 Unknown NT-Pro-B Natriuret Pep 7750 pg/mL (0-900) H 10/04/18 09:25 5.5 g/dL (6.3-8.2) L 10/05/18 05:49 2.8 g/dL (3.9-5) L 10/05/18 05:49 1.0 % 10/05/18 05:49 Triglycerides 104 mg/dL (2-149) 10/04/18 09:25 Cholesterol 198 mg/dL (50-199) 10/04/18 09:25 133 mg/dL (50-130) H 10/04/18 09:25 64 mg/dL (40-59) H 10/04/18 09:25 3.09 % 10/04/18 09:25 TSH 2.970 mlU/mL (0.270-4.200) 10/04/18 12:13 Free T4 1.34 ng/dL (0.76-1.46) 10/04/18 12:13 Yellow (Yellow) 10/04/18 Unknown Clear (Clear) 10/04/18 Unknown 5.0 (5.0-7.0) 10/04/18 Unknown Ur Specific [place] 1.016 (1.003-1.030) 10/04/18 Unknown 30 mg/dl mg/dL (Negative) 10/04/18 Unknown 50 mg/dL (Negative) 10/04/18 Unknown Neg mg/dL (Negative) 10/04/18 Unknown Neg (Negative) 10/04/18 Unknown Neg (Negative) 10/04/18 Unknown Neg (Negative) 10/04/18 Unknown < 2.0 mg/dL (<2.0) 10/04/18 Unknown Ur Leukocyte Esterase Neg (Negative) 10/04/18 Unknown 6.0 /HPF (0.0-6.0) 10/04/18 Unknown 5.0 /HPF (0.0-6.0) 10/04/18 Unknown U Epithel Cells (Auto) < 1.0 /HPF (0-13.0) 10/04/18 Unknown 1+ /HPF (Negative) 10/04/18 Unknown Few /HPF 10/04/18 Unknown Active Medications - Current Medications Current Medications: Generic Name Dose Route Start Last Admin Trade Name Freq PRN Reason Stop Dose Admin Albuterol 2.5 mg 10/04/18 11:45 Proventil IH Q3HRT PRN Shortness Of Breath Enoxaparin Sodium 40 mg 10/04/18 22:00 10/05/18 02:41 Lovenox SUB-Q 40 mg Q12HR FAITH Administration Hydralazine HCl 10 mg 10/05/18 10:00 Apresoline IV 10/05/18 10:01 ONCE ONE Hydrophilic Ointment 1 applic 10/04/18 11:20 Vaseline Lip Therapy TP Q2HR PRN Dry Lips Azithromycin 500 mg/ Sodium 250 mls @ 250 mls/hr 10/04/18 10:00 10/04/18 11:00 Chloride IV 250 mls/hr Q24HR FAITH Administration Protocol Ceftriaxone Sodium 2 gm in 100 mls @ 200 mls/hr 10/04/18 09:03 10/04/18 09:33 Rocephin/Ns 2 Gm/100 Ml IV 200 mls/hr Q24HR FAITH Administration Protocol Nicardipine HCl 50 mg/ Sodium 250 mls @ 25 mls/hr 10/04/18 11:00 10/04/18 15:15 Chloride IV 0 mg/hr TITR FAITH 0 mls/hr Titration Protocol 5 MG/HR Propofol 1,000 mg in 100 mls @ 1.129 mls/hr 10/04/18 12:00 10/05/18 02:39 Diprivan 10 Mg/Ml IV 20 mcg/kg/min TITR FAITH 4.518 mls/hr Administration Protocol 5 MCG/KG/MIN Potassium Chloride 10 meq in 100 mls @ 100 mls/hr 10/05/18 08:00 Kcl 10meq/100ml IV 10/05/18 09:59 Q1H FAITH Lansoprazole 30 mg 10/05/18 10:00 Prevacid Solutab FEEDTUBE QDAY FAITH Multi-Ingred Cream/Lotion/Oil/Oint 1 applic 10/04/18 11:20 Artificial Tears Ophth Oint OU Q4HR PRN Dry Eye(s) Nitroglycerin 0.4 mg 10/04/18 11:45 Nitrostat SL Q5M PRN Chest Pain Potassium Chloride 40 meq 10/05/18 10:00 Potassium Chloride FEEDTUBE 10/05/18 10:01 ONCE ONE Sodium Chloride 10 ml 10/04/18 22:00 10/04/18 21:00 Sodium Chloride Flush Syringe 10 Ml IV 10 ml BID FAITH Administration Sodium Chloride 10 ml 10/04/18 11:45 Sodium Chloride Flush Syringe 10 Ml IV PRN PRN LINE FLUSH Sodium Chloride 10 ml 10/04/18 11:45 Sodium Chloride Flush Syringe 10 Ml IV PRN PRN LINE FLUSH
[2018-10-05] MEDS ORDERED: APRESOLINE ONE (09:11)
[2018-10-05] MEDS ORDERED: KCL 10MEQ/100ML 10 MEQ/100 ML BAG IV ONE (09:11)
[2018-10-05] MEDS ORDERED: POTASSIUM CHLORIDE ONE (09:12)
[2018-10-05] MEDS: KCL 10MEQ/100ML 10 MEQ/100 ML BAG IV SCH ×2 (09:16→11:51)
[2018-10-05] MEDS: SODIUM CHLORIDE FLUSH SYRINGE 10 ML IV SCH ×2 (09:19→22:00)
[2018-10-05] MEDS: ROCEPHIN/NS 2 GM/100 ML 2 GM/100 ML BAG IV SCH (09:21)
[2018-10-05] MEDS: ZITHROMAX 500 MG in NACL 0.9% 250ML 250 ML IV SCH (09:46)
[2018-10-05] MEDS: PREVACID SOLUTAB FEEDTUBE SCH (09:46)
[2018-10-05] MEDS ORDERED: PREVACID SOLUTAB FEEDTUBE ONE (09:48)
[2018-10-05] MEDS ORDERED: APRESOLINE IV ONE (10:00)
--- NOTE | 2018-10-05 11:51 | Consultation ---
History of Present Illness Consult date: 10/05/18 Requesting physician: LURDES WHARTON Reason for consult: hypoxemia, other (acute respiratory failure) History of present illness: 88 y/o female brought in by EMS after son found patient unarousable. Per report sat was 70% so intubated in the ED. CXR shows possible left lower lobe infiltrate. Was started on CAP coverage and transitioned to ICU. Patient also hypertensive. Was started on Cardene drip but this has since been weaned off. Remainder of the review is unobtainable. Past History Past Medical History: COPD, GERD, hypertension, hypothyroidism, other (Demenita,Hyponatremia) Past Surgical History: No surgical history Social history: single, lives with family Family history: hypertension Medications and Allergies Allergies Allergy/AdvReac Type Severity Reaction Status Date / Time No Known Allergies Allergy Verified 10/04/18 09:02 Home Medications Medication Instructions Recorded Confirmed Last Taken Type Oxybutynin [Ditropan] 5 mg PO QHS 04/17/14 10/04/18 05/26/18 History Pantoprazole [Protonix TAB] 40 mg PO QDAY 04/17/14 10/04/18 05/27/18 History Benzonatate [Tessalon Perles] 100 mg PO Q8HR PRN 05/27/18 10/04/18 05/27/18 History Labetalol [Labetalol 100mg TAB] 100 mg PO BID 05/27/18 10/04/18 05/27/18 History Lubiprostone [Amitiza] 8 mcg PO QDAY 05/27/18 10/04/18 05/27/18 History Symbicort 160-4.5 Mcg Inhaler 160 mcg INHALATION BID 05/27/18 10/04/18 Unknown History Aspirin [Aspirin BABY CHEW TAB] 81 mg PO QDAY 10/04/18 10/04/18 Unknown History Active Meds: Active Medications Albuterol (Proventil) 2.5 mg IH Q3HRT PRN PRN Reason: Shortness Of Breath Enoxaparin Sodium (Lovenox) 40 mg SUB-Q Q12HR FAITH Last Admin: 10/05/18 09:15 Dose: 40 mg Documented by: Hydralazine HCl (Apresoline) 10 mg IV Q4H PRN PRN Reason: SBP >/=160 Hydrophilic Ointment (Vaseline Lip Therapy) 1 applic TP Q2HR PRN PRN Reason: Dry Lips Azithromycin 500 mg/ Sodium (Chloride) 250 mls @ 250 mls/hr IV Q24HR FAITH; Protocol Stop: 10/08/18 10:59 Last Admin: 10/05/18 09:46 Dose: 250 mls/hr Documented by: Ceftriaxone Sodium (Rocephin/Ns 2 Gm/100 Ml) 2 gm in 100 mls @ 200 mls/hr IV Q24HR FAITH; Protocol Stop: 10/08/18 10:29 Last Admin: 10/05/18 09:21 Dose: 200 mls/hr Documented by: Nicardipine HCl 50 mg/ Sodium (Chloride) 250 mls @ 25 mls/hr IV TITR FAITH; Protocol Last Titration: 10/04/18 15:15 Dose: 0 mg/hr, 0 mls/hr Documented by: Propofol (Diprivan 10 Mg/Ml) 1,000 mg in 100 mls @ 1.129 mls/hr IV TITR FAITH; Protocol Last Titration: 10/05/18 09:38 Dose: 5 mcg/kg/min, 1.129 mls/hr Documented by: Labetalol HCl (Normodyne) 100 mg PO BID FAITH Lansoprazole (Prevacid Solutab) 30 mg FEEDTUBE QDAY [facility] Last Admin: 10/05/18 09:46 Dose: 30 mg Documented by: Multi-Ingred Cream/Lotion/Oil/Oint (Artificial Tears Ophth Oint) 1 applic OU Q4HR PRN PRN Reason: Dry Eye(s) Nitroglycerin (Nitrostat) 0.4 mg SL Q5M PRN PRN Reason: Chest Pain Potassium Chloride (Potassium Chloride) 40 meq FEEDTUBE ONCE ONE Stop: 10/05/18 12:01 Sodium Chloride (Sodium Chloride Flush Syringe 10 Ml) 10 ml IV BID [facility] Last Admin: 10/05/18 09:19 Dose: 10 ml Documented by: Sodium Chloride (Sodium Chloride Flush Syringe 10 Ml) 10 ml IV PRN PRN PRN Reason: LINE FLUSH Sodium Chloride (Sodium Chloride Flush Syringe 10 Ml) 10 ml IV PRN PRN PRN Reason: LINE FLUSH Review of Systems ROS unobtainable: due to endotracheal tube, due to mental status Physical Examination Vital signs: Vital Signs Pulse Resp BP Pulse Ox 84 18 191/86 100 08/12/19 09:21 10/04/18 09:21 10/04/18 09:21 10/04/18 09:21 General appearance: no acute distress ENT: other (orally intubated and sedated) Neck: supple Effort: normal Ascultation: Left: rales (base), Bilateral: diminished breath sounds Percussion: Bilateral: not dull Gastrointestinal: normoactive bowel sounds, soft unable to assess Results - Laboratory Findings CBC and BMP: 10/05/18 05:49 10/05/18 05:49 ABG POC ABG pH 7.528 (7.35-7.45) H 10/05/18 04:09 POC ABG pCO2 30.5 (35-45) L 10/05/18 04:09 POC ABG pO2 166 (80-105) H 10/05/18 04:09 POC ABG HCO3 25.4 (22-26 mml/L) 10/05/18 04:09 POC ABG Total CO2 26 (23-27mmol/L) 10/05/18 04:09 POC ABG O2 Sat 100 10/05/18 04:09 PT/INR, D-dimer 1325.24 ng/mlDDU (0-234) H 10/04/18 Unknown Abnormal lab findings: Abnormal Labs 10/04/18 10/04/18 10/04/18 09:25 09:25 09:25 RBC 3.45 L Hct MCHC Plt Count 123 L Lymph % (Auto) 8.0 L [place] % (Auto) Lymph # 0.4 L Seg Neutrophils % 82.0 H D-Dimer POC ABG pH POC ABG pCO2 POC ABG pO2 Sodium 132 L Potassium Chloride 95.1 L Creatinine 0.5 L Glucose 126 H Calcium AST ALT Troponin T 0.074 H NT-Pro-B Natriuret Pep 7750 H Total Protein Albumin 3.3 L LDL Cholesterol Direct 133 H HDL Cholesterol 64 H 10/04/18 10/04/18 10/04/18 10:18 14:48 Unknown RBC Hct MCHC Plt Count Lymph % (Auto) [place] % (Auto) Lymph # Seg Neutrophils % D-Dimer POC ABG pH 7.499 H POC ABG pCO2 32.0 L POC ABG pO2 139 H Sodium Potassium Chloride Creatinine Glucose Calcium AST ALT Troponin T 0.037 H D 0.075 H D NT-Pro-B Natriuret Pep Total Protein Albumin LDL Cholesterol Direct HDL Cholesterol 10/04/18 10/05/18 10/05/18 Unknown 04:09 05:49 RBC 3.24 L Hct 29.3 L MCHC 35 H Plt Count 130 L Lymph % (Auto) 12.4 L [place] % (Auto) 8.6 H Lymph # 0.6 L Seg Neutrophils % 75.7 H D-Dimer 1325.24 H POC ABG pH 7.528 H POC ABG pCO2 30.5 L POC ABG pO2 166 H Sodium Potassium Chloride Creatinine Glucose Calcium AST ALT Troponin T NT-Pro-B Natriuret Pep Total Protein Albumin LDL Cholesterol Direct HDL Cholesterol 10/05/18 05:49 RBC Hct MCHC Plt Count Lymph % (Auto) [place] % (Auto) Lymph # Seg Neutrophils % D-Dimer POC ABG pH POC ABG pCO2 POC ABG pO2 Sodium Potassium 2.9 L* D Chloride Creatinine 0.4 L Glucose Calcium 8.2 L AST < 5 L ALT < 5 L Troponin T NT-Pro-B Natriuret Pep Total Protein 5.5 L Albumin 2.8 L LDL Cholesterol Direct HDL Cholesterol - Diagnostic Findings Chest x-ray: image reviewed (cardiomegaly with left lower lobe airspace disease) Assessment and Plan 88 y/o female with acute hypoxic respiratory failure, possibly secondary to pneumonia vs volume overload with hypertension. 1. Turn sedation off 2. PSV trials 3. restart home oral BP medication along with PRN hydralazine 4. Feed patient 5. Replace K more aggressively 6. Needs more lasix therapy, IV form 7. Decrease TV to 400 and recheck ABG given alkalemia seen on morning ABG CCT 31 minutes.
[2018-10-05] MEDS: NORMODYNE PO SCH (11:53)
--- NOTE | 2018-10-05 12:04 | XRay Report ---
ABDOMEN 1 VIEW(S) INDICATION / CLINICAL INFORMATION: NGT placement. COMPARISON: 10/04/2018 at 1106 hours FINDINGS: TUBES / LINES: The nasogastric tube has been advanced and is now coiled in the fundus of the stomach. BOWEL GAS PATTERN: No significant abnormality. FREE AIR / EXTRALUMINAL GAS: None seen. ADDITIONAL FINDINGS: Mild cardiomegaly and small left pleural effusion is noted. IMPRESSION: The nasogastric tube terminates in the fundus of the stomach. Signer Name: Cirilo Ko Jr, MD Signed: 10/05/2018 12:00 PM Workstation Name: [id number]
--- NOTE | 2018-10-05 12:39 | Progress Note ---
Assessment and Plan The patient is stable from a cardiac standpoint. Will recheck another troponin level - elevation likely r/t infectious process. She may benefit from ischemic evaluation prior to discharge - will consider further once stabilized from pulmonary standpoint. Will continue supportive care for now. The patient has been seen in conjunction with Dr. Rock, who agrees with the assessment and plan. - Patient Problems (1) Respiratory failure Current Visit: Yes Status: Acute Qualifiers: Chronicity: acute Respiratory failure complication: hypoxia Qualified Code(s): J96.01 - Acute respiratory failure with hypoxia (2) COPD (chronic obstructive pulmonary disease) Current Visit: Yes Status: Acute Qualifiers: Chronic bronchitis type: mixed simple and mucopurulent (3) Pleural effusion Current Visit: Yes Status: Acute (4) Pneumonia Current Visit: Yes Status: Acute (5) History of hemorrhagic cerebrovascular accident (CVA) with residual deficit Current Visit: No Status: Chronic (6) GERD (gastroesophageal reflux disease) Current Visit: No Status: Chronic Qualifiers: Esophagitis presence: without esophagitis Qualified Code(s): K21.9 - Anthony ro-esophageal reflux disease without esophagitis (7) Elevated troponin Current Visit: Yes Status: Acute Subjective Date of service: 10/05/18 Interval history: Patient remains intubated and sedated. Arouses to noxious stimuli. Sinus rhythm with PACs in 80s, but hypertensive. F/u troponins 0.037 and 0.075. Objective Last Vital Signs Temp 98 F 10/05/18 08:00 Pulse 81 10/05/18 12:00 Resp 15 10/05/18 12:00 BP 159/120 10/05/18 12:00 Pulse Ox 100 10/05/18 12:00 - Physical Examination General: No Apparent Distress HEENT: Positive: Normocephaly Neck: Positive: trachea midline Cardiac: Positive: Reg Rate and Rhythm Lungs: Positive: Ventilated Respirations Neuro: Positive: Other (JOSHUA - intubated) Abdomen: Positive: Unremarkable /Rectal: Other (deferred) Skin: Positive: Clear, Bruising (left calf ) Musculoskeletal: Decreased Range of Motion Extremities: Present: normal - Labs and Meds Cardiac Enzymes 10/05/18 Range/Units 05:49 AST < 5 L (5-40) units/L CBC 10/05/18 Range/Units 05:49 WBC 4.9 (4.5-11.0) K/mm3 RBC 3.24 L (3.65-5.03) M/mm3 Hgb 10.2 (10.1-14.3) gm/dl Hct 29.3 L (30.3-42.9) % Plt Count 130 L (140-440) K/mm3 Lymph # 0.6 L (1.2-5.4) K/mm3 [place] # 0.4 (0.0-0.8) K/mm3 Eos # 0.2 (0.0-0.4) K/mm3 Baso # 0.0 (0.0-0.1) K/mm3 Comprehensive Metabolic Panel 10/05/18 Range/Units 05:49 Sodium 141 D (137-145) mmol/L Potassium 2.9 L* D (3.6-5.0) mmol/L Chloride 104.4 (98-107) mmol/L Carbon Dioxide 25 (22-30) mmol/L BUN 10 (7-17) mg/dL Creatinine 0.4 L (0.7-1.2) mg/dL Glucose 93 (65-100) mg/dL Calcium 8.2 L (8.4-10.2) mg/dL AST < 5 L (5-40) units/L ALT < 5 L (7-56) units/L Alkaline Phosphatase 77 (35-129) units/L Total Protein 5.5 L (6.3-8.2) g/dL Albumin 2.8 L (3.9-5) g/dL - Imaging and Cardiology EKG: report reviewed (SR with RBBB) Echo: report reviewed (04/2018: LVEF of 65%, moderate LVH, mild MR, mild TR, mildly dilated LA and mildly dilated RA. ) - Telemetry EKG Rhythm: Sinus Rhythm - EKG Sinus rhythms and dysrhythmias: sinus rhythm Supraventricular dysrhythmia: atrial premature complexe AV and intraventricular conduction: right bundle branch block
[2018-10-05] MEDS ORDERED: LASIX IV ONE (13:00)
[2018-10-05 13:33] LABS: ABG Base Excess -0.7 mmol/L (-2.0-3.0); ABG HCO3 22.3 mmol/L (20.0-26.0); ABG Methemoglobin 0.6 % (0.0-1.5); ABG Oxygen Saturation 98.5 % (95.0-99.0); ABG PCO2 31.2 mm Hg; ABG PH 7.472 pH Units (7.350-7.450); ABG PO2 119.5 mm Hg (80.0-90.0)
[2018-10-05] MEDS ORDERED: PANCREAZE DR 10,500 UNIT FEEDTUBE PRN (15:46)
[2018-10-05] MEDS ORDERED: SIMPLE SYRUP FEEDTUBE PRN ×2 (15:46)
[2018-10-05] MEDS ORDERED: SODIUM BICARBONATE FEEDTUBE PRN (15:46)
--- NOTE | 2018-10-05 17:23 | Consultation ---
History of Present Illness - Reason for Consult Consult date: 10/05/18 fever/?sepsis Requesting physician: JACQUELYN MORALES - History of Present Illness The patient is an 88-year-old female with hypertension, hypothyroidism, anemia, schizophrenia, dementia, CVA. The patient's son noticed patient getting confused and weak over the previous 2-3 days prior to admission. She was then noted to be in respiratory distress and hence EMS was called. Patient was found to have significant hypoxia requiring a nonrebreather mask. Chest x-ray showed findings concerning for pulmonary edema and questionable left lower lobe pneumonia. She had a low-grade temperature of 100F, patient's diseases was consulted for antibiotic recommendations and questionable sepsis/pneumonia. Patient is currently intubated, in ICU, sedated. Unable to provide history. History woken by chart review and by speaking to the patient's daughter at bedside. Review of Systems: limited due to vent, sedation Past History Past Medical History: COPD, GERD, hypertension, hypothyroidism, other ([place],Hyponatremia) Past Surgical History: No surgical history Social history: single, lives with family Family history: hypertension Medications and Allergies Allergies Allergy/AdvReac Type Severity Reaction Status Date / Time No Known Allergies Allergy Verified 10/04/18 09:02 Home Medications Medication Instructions Recorded Confirmed Last Taken Type Oxybutynin [Ditropan] 5 mg PO QHS 04/17/14 10/04/18 05/26/18 History Pantoprazole [Protonix TAB] 40 mg PO QDAY 04/17/14 10/04/18 05/27/18 History Benzonatate [Tessalon Perles] 100 mg PO Q8HR PRN 05/27/18 10/04/18 05/27/18 History Labetalol [Labetalol 100mg TAB] 100 mg PO BID 05/27/18 10/04/18 05/27/18 History Lubiprostone [Amitiza] 8 mcg PO QDAY 05/27/18 10/04/18 05/27/18 History Symbicort 160-4.5 Mcg Inhaler 160 mcg INHALATION BID 05/27/18 10/04/18 Unknown History Aspirin [Aspirin BABY CHEW TAB] 81 mg PO QDAY 10/04/18 10/04/18 Unknown History Active Meds: Active Medications Albuterol (Proventil) 2.5 mg IH Q3HRT PRN PRN Reason: Shortness Of Breath Lipase/Protease/Amylase (Pancreangel luis Sifuentes 10,500 Unit) 1 each FEEDTUBE PRN PRN PRN Reason: For Clogged Feeding Tube Enoxaparin Sodium (Lovenox) 40 mg SUB-Q Q12HR FAITH Last Admin: 10/05/18 09:15 Dose: 40 mg Documented by: Hydralazine HCl (Apresoline) 10 mg IV Q4H PRN PRN Reason: SBP >/=160 Hydrophilic Ointment (Vaseline Lip Therapy) 1 applic TP Q2HR PRN PRN Reason: Dry Lips Azithromycin 500 mg/ Sodium (Chloride) 250 mls @ 250 mls/hr IV Q24HR FAITH; Protocol Stop: 10/08/18 10:59 Last Admin: 10/05/18 09:46 Dose: 250 mls/hr Documented by: Ceftriaxone Sodium (Rocephin/Ns 2 Gm/100 Ml) 2 gm in 100 mls @ 200 mls/hr IV Q24HR FAITH; Protocol Stop: 10/08/18 10:29 Last Admin: 10/05/18 09:21 Dose: 200 mls/hr Documented by: Nicardipine HCl 50 mg/ Sodium (Chloride) 250 mls @ 25 mls/hr IV TITR FAITH; Protocol Last Titration: 10/04/18 15:15 Dose: 0 mg/hr, 0 mls/hr Documented by: Propofol (Diprivan 10 Mg/Ml) 1,000 mg in 100 mls @ 1.129 mls/hr IV TITR FAITH; Protocol Last Admin: 10/05/18 15:20 Dose: 20 mcg/kg/min, 4.518 mls/hr Documented by: Labetalol HCl (Normodyne) 100 mg PO BID FAITH Last Admin: 10/05/18 11:53 Dose: 100 mg Documented by: Lansoprazole (Prevacid Solutab) 30 mg FEEDTUBE QDAY FAITH Last Admin: 10/05/18 09:46 Dose: 30 mg Documented by: Multi-Ingred Cream/Lotion/Oil/Oint (Artificial Tears Ophth Oint) 1 applic OU Q4HR PRN PRN Reason: Dry Eye(s) Nitroglycerin (Nitrostat) 0.4 mg SL Q5M PRN PRN Reason: Chest Pain Simple Syrup (Simple Syrup) 15 ml FEEDTUBE PRN PRN PRN Reason: Hypoglycemia Simple Syrup (Simple Syrup) 30 ml FEEDTUBE PRN PRN PRN Reason: Hypoglycemia Sodium Bicarbonate (Sodium Bicarbonate) 325 mg FEEDTUBE PRN PRN PRN Reason: For Clogged Feeding Tube Sodium Chloride (Sodium Chloride Flush Syringe 10 Ml) 10 ml IV BID FAITH Last Admin: 10/05/18 09:19 Dose: 10 ml Documented by: Sodium Chloride (Sodium Chloride Flush Syringe 10 Ml) 10 ml IV PRN PRN PRN Reason: LINE FLUSH Sodium Chloride (Sodium Chloride Flush Syringe 10 Ml) 10 ml IV PRN PRN PRN Reason: LINE FLUSH Physical Examination - Physical Exam Narrative exam: Physical Exam: Constitutional: sedated, intubated Head, Ears, Nose: Normocephalic, atraumatic. External ears, nose normal Eyes: Conjunctivae/corneas clear. No icterus. No ptosis. Neck: Supple, no meningeal signs Oral: intubated Cardiovascular: S1, S2 normal. Respiratory: Good air entry, clear to auscultation bilaterally GI: Soft, non-tender; bowel sounds normal. No peritoneal signs Musculoskeletal: No pedal edema, no cyanosis. Skin: No rash or abscess Hem/Lymphatic: No palpable cervical or supraclavicular nodes. No lymphangitis Psych: no agitation Neurological: sedated, intubated, on vent - Constitutional Vitals: Vital Signs Temp Pulse Resp BP Pulse Ox 97.3 F L 85 14 143/70 100 10/05/18 12:00 10/05/18 16:51 10/05/18 16:16 10/05/18 16:51 10/05/18 16:51 Temperature -Last 24 Hours Temperature 97.3 F Temperature 98 F Temperature 98.1 F Temperature 98.9 F Temperature 99.4 F Results - Labs CBC & Chem 7: 10/05/18 05:49 10/05/18 05:49 Labs: Abnormal lab results 10/05/18 10/05/18 10/05/18 Range/Units 04:09 05:49 05:49 RBC 3.24 L (3.65-5.03) M/mm3 Hct 29.3 L (30.3-42.9) % MCHC 35 H (30-34) % Plt Count 130 L (140-440) K/mm3 Lymph % (Auto) 12.4 L (13.4-35.0) % [place] % (Auto) 8.6 H (0.0-7.3) % Lymph # 0.6 L (1.2-5.4) K/mm3 Seg Neutrophils % 75.7 H (40.0-70.0) % POC ABG pH 7.528 H (7.35-7.45) ABG pH (7.350-7.450) pH Units POC ABG pCO2 30.5 L (35-45) POC ABG pO2 166 H (80-105) ABG pO2 (80.0-90.0) mm Hg ABG Hemoglobin (12.0-16.0) gm/dl Potassium 2.9 L* D (3.6-5.0) mmol/L Creatinine 0.4 L (0.7-1.2) mg/dL Calcium 8.2 L (8.4-10.2) mg/dL AST < 5 L (5-40) units/L ALT < 5 L (7-56) units/L Total Protein 5.5 L (6.3-8.2) g/dL Albumin 2.8 L (3.9-5) g/dL 10/05/18 Range/Units 12:30 RBC (3.65-5.03) M/mm3 Hct (30.3-42.9) % MCHC (30-34) % Plt Count (140-440) K/mm3 Lymph % (Auto) (13.4-35.0) % [place] % (Auto) (0.0-7.3) % Lymph # (1.2-5.4) K/mm3 Seg Neutrophils % (40.0-70.0) % POC ABG pH (7.35-7.45) ABG pH 7.472 H (7.350-7.450) pH Units POC ABG pCO2 (35-45) POC ABG pO2 (80-105) ABG pO2 119.5 H (80.0-90.0) mm Hg ABG Hemoglobin 11.3 L (12.0-16.0) gm/dl Potassium (3.6-5.0) mmol/L Creatinine (0.7-1.2) mg/dL Calcium (8.4-10.2) mg/dL AST (5-40) units/L ALT (7-56) units/L Total Protein (6.3-8.2) g/dL Albumin (3.9-5) g/dL - Imaging and Cardiology Chest x-ray: report reviewed, image reviewed (pulmonary edema, and left lower lobe opacity) Assessment and Plan Cultures: 10/04/2018 blood culture: No growth 10/04/2018 sputum culture: Usual respiratory rene 10/04/2018 urine culture: Enterococcus species A/P: 88-year-old female with hypertension, hypothyroidism, anemia, schizophrenia, dementia, CVA with: 1) Acute hypoxic respiratory failure: Likely from pulmonary edema. Also possible left lower lobe pneumonia. No fevers or leukocytosis. Respiratory cu lture growing usual respiratory rene. UA does not show any significant pyuria. Urine culture growing enterococcus is reflective of asymptomatic bacteriuria and doesn't need treatment. 2) NSTEMI: cardiology following. Recs: continue diuresis low suspicion for infectious process, continue Ceftriaxone and Azithromycin for now, plan to stop at Day 3 will follow D/W Dr. Arnulfo Knutson MD, FACP [facility] C: [phone] O: [phone] F: [phone]
[2018-10-05] MEDS: APRESOLINE IV PRN (20:25)
[2018-10-06] MEDS: BABY ASPIRIN PO SCH ×2 (00:33→10:09)
[2018-10-06] MEDS: DITROPAN PO SCH (04:19)
[2018-10-06] MEDS: DIPRIVAN 10 MG/ML 1,000 MG/100 ML BOTTLE IV SCH (04:21)
[2018-10-06 04:58] LABS: Hematocrit 31.5 % (30.3-42.9); Hemoglobin 10.5 gm/dl (10.1-14.3); Mean Corpuscular HGB Conc 33 % (30-34); Mean Corpuscular Volume 92 fl (79-97); Platelet Count 160 K/mm3 (140-440); Red Blood Count 3.44 M/mm3 (3.65-5.03); Red Cell Distribution Width 14.4 % (13.2-15.2)
[2018-10-06 05:12] LABS: BUN/Creatinine Ratio 24; Blood Urea Nitrogen 12 mg/dL (7-17); Calcium 8.7 mg/dL (8.4-10.2); Hemolysis Index 1
[2018-10-06] MEDS ORDERED: BABY ASPIRIN PO SCH (10:00)
[2018-10-06] MEDS ORDERED: ROCEPHIN/NS 1 GM/50 ML 1 GM/50 ML BAG IV SCH (10:00)
--- NOTE | 2018-10-06 10:07 | Progress Note ---
Assessment and Plan Assessment and plan: Acute respiratory failure. Still Intubated, on ventilator Pulmonology following Fever blood cultures drawn To r/o sepsis consult ID UTI Enterococcus Possible left lower lobe pneumonia Rocephin, Zithromax Hypertension Hydralazine iv prn Resume labetalol elevated Troponin cardiology following Toxic metabolic encephalopathy Hypothyroidism Monitor Dementia. supportive care Hypokalemia Replace hyponatremia Discussed with son at bedside Full code status History Interval history: Patient still intubated Hospitalist Physical - Physical exam Narrative exam: Gen: Not in acute distress, lying in bed, intubated,sedated HEENT: Normocephalic, atraumatic Neck: supple, no JVD Heart: S1 and S2 reg, no murmurs, rubs or gallop Lungs: Clear, no crackles, no rhonchi Abd: soft, non tender, non distended, normal BS, Ext: No edema, no clubbing, no cyanosis Neuro: intubated - Constitutional Vitals: Temp Pulse Resp BP Pulse Ox 97.7 F 88 19 132/100 100 10/06/18 08:00 10/06/18 09:15 10/06/18 09:15 10/06/18 09:15 10/06/18 09:15 General appearance: Present: other (intubated and sedated) Results - Labs CBC & Chem 7: 10/06/18 04:24 10/06/18 04:24 Labs: Laboratory Last Values WBC 5.3 K/mm3 (4.5-11.0) 10/06/18 04:24 RBC 3.44 M/mm3 (3.65-5.03) L 10/06/18 04:24 Hgb 10.5 gm/dl (10.1-14.3) 10/06/18 04:24 Hct 31.5 % (30.3-42.9) 10/06/18 04:24 MCV 92 fl (79-97) 10/06/18 04:24 MCH 31 pg (28-32) 10/06/18 04:24 MCHC 33 % (30-34) 10/06/18 04:24 RDW 14.4 % (13.2-15.2) 10/06/18 04:24 Plt Count 160 K/mm3 (140-440) 10/06/18 04:24 Lymph % (Auto) 12.4 % (13.4-35.0) L 10/05/18 05:49 [place] % (Auto) 8.6 % (0.0-7.3) H 10/05/18 05:49 Eos % (Auto) 3.1 % (0.0-4.3) 10/05/18 05:49 Baso % (Auto) 0.2 % (0.0-1.8) 10/05/18 05:49 Lymph # 0.6 K/mm3 (1.2-5.4) L 10/05/18 05:49 [place] # 0.4 K/mm3 (0.0-0.8) 10/05/18 05:49 Eos # 0.2 K/mm3 (0.0-0.4) 10/05/18 05:49 Baso # 0.0 K/mm3 (0.0-0.1) 10/05/18 05:49 Seg Neutrophils % 75.7 % (40.0-70.0) H 10/05/18 05:49 Seg Neutrophils # 3.7 K/mm3 (1.8-7.7) 10/05/18 05:49 1325.24 ng/mlDDU (0-234) H 10/04/18 Unknown POC ABG pH 7.464 (7.35-7.45) H 10/06/18 04:34 ABG pH 7.472 pH Units (7.350-7.450) H 10/05/18 12:30 POC ABG pCO2 34.1 (35-45) L 10/06/18 04:34 ABG pCO2 31.2 mm Hg 10/05/18 12:30 POC ABG pO2 114 (80-105) H 10/06/18 04:34 ABG pO2 119.5 mm Hg (80.0-90.0) H 10/05/18 12:30 POC ABG HCO3 24.5 (22-26 mml/L) 10/06/18 04:34 ABG HCO3 22.3 mmol/L (20.0-26.0) 10/05/18 12:30 POC ABG Total CO2 25 (23-27mmol/L) 10/06/18 04:34 POC ABG O2 Sat 99 10/06/18 04:34 ABG O2 Saturation 98.5 % (95.0-99.0) 10/05/18 12:30 ABG O2 Content 15.6 (0.0-44) 10/05/18 12:30 POC ABG Base Excess 1 ((-2) - (+3)mmol/L) 10/06/18 04:34 ABG Base Excess -0.7 mmol/L (-2.0-3.0) 10/05/18 12:30 ABG Hemoglobin 11.3 gm/dl (12.0-16.0) L 10/05/18 12:30 ABG Carboxyhemoglobin 1.5 % (0.0-5.0) 10/05/18 12:30 ABG Methemoglobin 0.6 % (0.0-1.5) 10/05/18 12:30 96.4 % (95.0-99.0) 10/05/18 12:30 28 % 10/06/18 04:34 Sodium 140 mmol/L (137-145) 10/06/18 04:24 Potassium 3.5 mmol/L (3.6-5.0) L D 10/06/18 04:24 Chloride 103.2 mmol/L (98-107) 10/06/18 04:24 Carbon Dioxide 24 mmol/L (22-30) 10/06/18 04:24 16 mmol/L 10/06/18 04:24 BUN 12 mg/dL (7-17) 10/06/18 04:24 0.5 mg/dL (0.7-1.2) L 10/06/18 04:24 Estimated GFR > 60 ml/min 10/06/18 04:24 24 % 10/06/18 04:24 Glucose 115 mg/dL (65-100) H 10/06/18 04:24 Lactic Acid 1.90 mmol/L (0.7-2.0) 10/04/18 12:13 Calcium 8.7 mg/dL (8.4-10.2) 10/06/18 04:24 Magnesium 2.20 mg/dL (1.7-2.3) 10/05/18 07:14 0.50 mg/dL (0.1-1.2) 10/05/18 05:49 AST < 5 units/L (5-40) L 10/05/18 05:49 ALT < 5 units/L (7-56) L 10/05/18 05:49 77 units/L (35-129) 10/05/18 05:49 < 0.010 ng/mL (0.00-0.029) 10/05/18 12:54 NT-Pro-B Natriuret Pep 7750 pg/mL (0-900) H 10/04/18 09:25 5.5 g/dL (6.3-8.2) L 10/05/18 05:49 2.8 g/dL (3.9-5) L 10/05/18 05:49 1.0 % 10/05/18 05:49 Triglycerides 104 mg/dL (2-149) 10/04/18 09:25 Cholesterol 198 mg/dL (50-199) 10/04/18 09:25 133 mg/dL (50-130) H 10/04/18 09:25 64 mg/dL (40-59) H 10/04/18 09:25 3.09 % 10/04/18 09:25 TSH 2.970 mlU/mL (0.270-4.200) 10/04/18 12:13 Free T4 1.34 ng/dL (0.76-1.46) 10/04/18 12:13 Yellow (Yellow) 10/04/18 Unknown Clear (Clear) 10/04/18 Unknown 5.0 (5.0-7.0) 10/04/18 Unknown Ur Specific [place] 1.016 (1.003-1.030) 10/04/18 Unknown 30 mg/dl mg/dL (Negative) 10/04/18 Unknown 50 mg/dL (Negative) 10/04/18 Unknown Neg mg/dL (Negative) 10/04/18 Unknown Neg (Negative) 10/04/18 Unknown Neg (Negative) 10/04/18 Unknown Neg (Negative) 10/04/18 Unknown < 2.0 mg/dL (<2.0) 10/04/18 Unknown Ur Leukocyte Esterase Neg (Negative) 10/04/18 Unknown 6.0 /HPF (0.0-6.0) 10/04/18 Unknown 5.0 /HPF (0.0-6.0) 10/04/18 Unknown U Epithel Cells (Auto) < 1.0 /HPF (0-13.0) 10/04/18 Unknown 1+ /HPF (Negative) 10/04/18 Unknown Few /HPF 10/04/18 Unknown Active Medications - Current Medications Current Medications: Generic Name Dose Route Start Last Admin Trade Name Freq PRN Reason Stop Dose Admin Albuterol 2.5 mg 10/04/18 11:45 Proventil IH Q3HRT PRN Shortness Of Breath Lipase/Protease/Amylase 1 each 10/05/18 15:46 Pancreaze 10,500 Unit FEEDTUBE PRN PRN For Clogged Feeding Tube Aspirin 81 mg 10/05/18 23:00 10/06/18 00:33 Baby Aspirin PO 81 mg QDAY FAITH Administration Enoxaparin Sodium 40 mg 10/04/18 22:00 10/05/18 21:52 Lovenox SUB-Q 40 mg Q12HR FAITH Administration Hydralazine HCl 10 mg 10/05/18 11:16 10/05/18 20:25 Apresoline IV 10 mg Q4H PRN Administration SBP >/=160 Hydrophilic Ointment 1 applic 10/04/18 11:20 Vaseline Lip Therapy TP Q2HR PRN Dry Lips Azithromycin 500 mg/ Sodium 250 mls @ 250 mls/hr 10/04/18 10:00 10/05/18 09:46 Chloride IV 10/08/18 10:59 250 mls/hr Q24HR FAITH Administration Protocol Nicardipine HCl 50 mg/ Sodium 250 mls @ 25 mls/hr 10/04/18 11:00 10/04/18 15:15 Chloride IV 0 mg/hr TITR FAITH 0 mls/hr Titration Protocol 5 MG/HR Propofol 1,000 mg in 100 mls @ 1.129 mls/hr 10/04/18 12:00 10/06/18 04:21 Diprivan 10 Mg/Ml IV 30 mcg/kg/min TITR FAITH 6.777 mls/hr Administration Protocol 5 MCG/KG/MIN Ceftriaxone Sodium 1 gm in 50 mls @ 100 mls/hr 10/06/18 10:00 Rocephin/Ns 1 Gm/50 Ml IV Q24HR FAITH Protocol Labetalol HCl 100 mg 10/05/18 12:00 10/06/18 00:00 Normodyne PO Not Given BID FAITH Lansoprazole 30 mg 10/05/18 10:00 10/05/18 09:46 Prevacid Solutab FEEDTUBE 30 mg QDAY FAITH Administration Multi-Ingred Cream/Lotion/Oil/Oint 1 applic 10/04/18 11:20 Artificial Tears Ophth Oint OU Q4HR PRN Dry Eye(s) Nitroglycerin 0.4 mg 10/04/18 11:45 Nitrostat SL Q5M PRN Chest Pain Oxybutynin Chloride 5 mg 10/05/18 23:00 10/06/18 04:19 Ditropan PO Not Given QHS FAITH Simple Syrup 15 ml 10/05/18 15:46 Simple Syrup FEEDTUBE PRN PRN Hypoglycemia Simple Syrup 30 ml 10/05/18 15:46 Simple Syrup FEEDTUBE PRN PRN Hypoglycemia Sodium Bicarbonate 325 mg 10/05/18 15:46 Sodium Bicarbonate FEEDTUBE PRN PRN For Clogged Feeding Tube Sodium Chloride 10 ml 10/04/18 22:00 10/05/18 22:00 Sodium Chloride Flush Syringe 10 Ml IV 10 ml BID FAITH Administration Sodium Chloride 10 ml 10/04/18 11:45 Sodium Chloride Flush Syringe 10 Ml IV PRN PRN LINE FLUSH Nutrition/Malnutrition Assess - Dietary Evaluation Nutrition/Malnutrition Findings: Nutrition Notes Start: 10/05/18 15:33 Freq: Status: Active Protocol: Document 10/05/18 15:33 RM (Rec: 10/05/18 15:46 RM [id number]) Nutrition Notes Need for Assessment generated from: MD Order Initial or Follow up Assessment Current Diagnosis COPD,Hypertension,Stroke Other Pertinent Diagnosis AMS, Dementia, GERD, Schizophrenia Current Diet NPO Labs/Tests Reviewed Pertinent Medications Lasix, Propofol at 1 ml/hr (26 kcal) Height 4 ft 8 in Weight 38 kg [place] Body Weight (kg) 36.36 BMI 18.8 Subjective/Other Information Consulted for TF recommendation. Pt on vent. Burn Absent Trauma Absent #1 Nutrition Diagnosis Inadequate oral intake Etiology on vent As Evidenced by Signs and Symptoms NPO status Is patient on ventilator? Yes Is Patient Ambulatory and/or Out of Bed No REE-([facility]-confined to bed) 803.688 Kcal/Kg value to use for calculation 33 Approximate Energy Requirements Using 1254 kcal/Kg Calculation Used for Recommendations [facility] Additional Notes Protein Needs: 46-76g (1.2-2g/ kg) Fluid Needs: 1 ml/kcal Nutrition Intervention Nutrition Support: Osmolite 1.5 at 35 ml/hr Water flush of 100 mls q 4 hrs . Kcal 1,260 Protein (gm) 53 Fluid (mL) 640 Goal #1 TF tolerance Goal #2 Meet at least 80% of calorie and protein needs via TF Anticipated Discharge Needs: Unable to determine at this time Follow-Up By: 10/07/18 Additional Comments Follow for new TF
[2018-10-06] MEDS: LOVENOX SUB-Q SCH (10:09)
[2018-10-06] MEDS: PREVACID SOLUTAB FEEDTUBE SCH (10:09)
[2018-10-06] MEDS: NORMODYNE PO SCH ×2 (10:10)
[2018-10-06] MEDS: ZITHROMAX 500 MG in NACL 0.9% 250ML 250 ML IV SCH (10:15)
[2018-10-06] MEDS: SODIUM CHLORIDE FLUSH SYRINGE 10 ML IV SCH (10:38)
--- NOTE | 2018-10-06 10:53 | Progress Note ---
Assessment and Plan Cultures: 10/04/2018 blood culture: No growth 10/04/2018 sputum culture: Usual respiratory rene 10/04/2018 urine culture: Enterococcus species A/P: 88-year-old female with hypertension, hypothyroidism, anemia, schizophrenia, dementia, CVA with: 1) Acute hypoxic respiratory failure: Likely from pulmonary edema. Also possible left lower lobe pneumonia. No fevers or leukocytosis. Respiratory culture growing usual respiratory rene. UA does not show any significant pyuria. Urine culture growing enterococcus is reflective of asymptomatic bacteriuria and doesn't need treatment. Vent requirements are minimal. Will d/c abx today. 2) NSTEMI: cardiology following. 3) Asymptomatic bacteruria: no abx needed. UA with no significant pyuria. No fever. Recs: stopped abx today Ridge Knutson MD, FACP [facility] C: [phone] O: [phone] F: [phone] Subjective Date of service: 10/06/18 Interval history: No fever. Remains sedated, intubated. Objective - Exam Narrative Exam: Physical Exam: Constitutional: sedated, intubated Head, Ears, Nose: Normocephalic, atraumatic. External ears, nose normal Eyes: Conjunctivae/corneas clear. No icterus. No ptosis. Neck: Supple, no meningeal signs Oral: intubated Cardiovascular: S1, S2 normal. Respiratory: Good air entry, clear to auscultation bilaterally GI: Soft, non-tender; bowel sounds normal. No peritoneal signs Musculoskeletal: No pedal edema, no cyanosis. Skin: No rash or abscess Hem/Lymphatic: No palpable cervical or supraclavicular nodes. No lymphangitis Psych: no agitation Neurological: sedated, intubated, on vent - Constitutional Vitals: Vital Signs Temp Pulse Resp BP Pulse Ox 97.7 F 86 14 135/61 100 10/06/18 08:00 10/06/18 10:30 10/06/18 10:30 10/06/18 10:30 10/06/18 10:30 Temperature -Last 24 Hours Temperature 97.7 F Temperature 97.5 F Temperature 98.5 F Temperature 97.7 F Temperature 97.6 F Temperature 97.3 F - Labs CBC & Chem 7: 10/06/18 04:24 10/06/18 04:24 Labs: Abnormal lab results 10/05/18 10/06/18 10/06/18 Range/Units 12:30 04:24 04:24 RBC 3.44 L (3.65-5.03) M/mm3 POC ABG pH (7.35-7.45) ABG pH 7.472 H (7.350-7.450) pH Units POC ABG pCO2 (35-45) POC ABG pO2 (80-105) ABG pO2 119.5 H (80.0-90.0) mm Hg ABG Hemoglobin 11.3 L (12.0-16.0) gm/dl Potassium 3.5 L D (3.6-5.0) mmol/L Creatinine 0.5 L (0.7-1.2) mg/dL Glucose 115 H (65-100) mg/dL 10/06/18 Range/Units 04:34 RBC (3.65-5.03) M/mm3 POC ABG pH 7.464 H (7.35-7.45) ABG pH (7.350-7.450) pH Units POC ABG pCO2 34.1 L (35-45) POC ABG pO2 114 H (80-105) ABG pO2 (80.0-90.0) mm Hg ABG Hemoglobin (12.0-16.0) gm/dl Potassium (3.6-5.0) mmol/L Creatinine (0.7-1.2) mg/dL Glucose (65-100) mg/dL
--- NOTE | 2018-10-06 11:24 | Progress Note ---
Assessment and Plan The patient is stable from a cardiac standpoint. She may benefit from ischemic evaluation prior to discharge - will consider further once stabilized from pulmonary standpoint. Will continue supportive care for now. The patient has been seen in conjunction with Dr. Rock, who agrees with the assessment and plan. - Patient Problems (1) Respiratory failure Current Visit: Yes Status: Acute Qualifiers: Chronicity: acute Respiratory failure complication: hypoxia Qualified Code(s): J96.01 - Acute respiratory failure with hypoxia (2) COPD (chronic obstructive pulmonary disease) Current Visit: Yes Status: Acute Qualifiers: Chronic bronchitis type: mixed simple and mucopurulent (3) Pleural effusion Current Visit: Yes Status: Acute (4) Pneumonia Current Visit: Yes Status: Acute (5) History of hemorrhagic cerebrovascular accident (CVA) with residual deficit Current Visit: No Status: Chronic (6) GERD (gastroesophageal reflux disease) Current Visit: No Status: Chronic Qualifiers: Esophagitis presence: without esophagitis Qualified Code(s): K21.9 - Gastro-esophageal reflux disease without esophagitis (7) Elevated troponin Current Visit: Yes Status: Acute Subjective Date of service: 10/06/18 Interval history: Patient remains intubated and sedated. Arouses to noxious stimuli. Sinus rhythm with PACs in 80s. Latest troponin negative. Objective Vital Signs Temp Pulse Pulse Resp BP Pulse Ox 10/06/18 10:30 86 14 135/61 100 10/06/18 10:15 83 15 148/65 100 10/06/18 10:10 91 H 154/71 10/06/18 10:00 84 14 154/71 100 10/06/18 09:45 80 17 162/70 100 10/06/18 09:31 83 16 154/70 100 10/06/18 09:15 88 19 132/100 100 10/06/18 09:00 90 22 140/68 100 10/06/18 08:45 73 14 120/57 100 10/06/18 08:30 69 14 131/52 100 10/06/18 08:15 72 14 135/45 100 10/06/18 08:00 97.7 F 69 14 121/52 100 10/06/18 07:45 73 14 116/53 100 10/06/18 07:30 71 14 132/52 100 10/06/18 07:15 75 14 129/50 100 10/06/18 07:00 83 14 137/50 100 10/06/18 06:45 75 14 136/57 100 10/06/18 06:30 81 13 143/56 100 10/06/18 06:15 71 14 138/56 100 10/06/18 06:01 68 14 154/63 100 10/06/18 05:45 71 14 159/55 100 10/06/18 05:30 69 14 169/70 100 10/06/18 05:15 77 14 168/74 100 10/06/18 05:01 93 H 22 160/77 99 10/06/18 04:45 92 H 19 151/102 100 10/06/18 04:31 86 19 162/77 100 10/06/18 04:30 80 151/64 100 10/06/18 04:15 82 15 151/64 100 10/06/18 04:00 97.5 F L 70 72 14 141/57 100 10/06/18 03:45 72 14 140/65 100 10/06/18 03:30 82 15 138/66 100 10/06/18 03:15 88 15 139/64 99 10/06/18 03:01 86 16 145/72 100 10/06/18 02:45 91 H 15 115/54 99 10/06/18 02:30 72 14 115/54 100 10/06/18 02:15 72 14 125/55 100 10/06/18 02:00 71 14 119/58 100 10/06/18 01:45 75 14 119/58 100 10/06/18 01:30 70 14 144/58 100 10/06/18 01:16 71 136/55 100 10/06/18 01:15 75 14 136/55 100 10/06/18 01:00 75 14 126/58 100 10/06/18 00:45 76 14 126/60 100 10/06/18 00:30 72 14 141/69 100 10/06/18 00:19 72 14 100 10/06/18 00:10 73 144/72 100 10/06/18 00:00 74 76 14 134/65 100 10/05/18 23:57 98.5 F 10/05/18 23:45 74 14 134/65 100 10/05/18 23:30 91 H 22 141/66 100 10/05/18 23:15 84 16 141/66 100 10/05/18 23:12 83 23 130/67 100 10/05/18 23:00 86 21 130/67 100 10/05/18 22:46 92 H 20 137/61 100 10/05/18 22:32 116/58 100 10/05/18 22:16 95 H 23 116/58 100 10/05/18 22:00 88 15 116/58 99 10/05/18 21:46 78 14 109/53 99 10/05/18 21:30 81 14 109/53 99 10/05/18 21:16 91 H 16 102/48 100 10/05/18 21:00 97 H 20 102/48 100 10/05/18 20:46 98 H 17 171/68 99 10/05/18 20:43 99 H 108/50 99 10/05/18 20:30 93 H 22 171/68 100 10/05/18 20:25 90 171/68 10/05/18 20:16 90 26 H 178/76 100 10/05/18 20:00 67 14 156/71 100 10/05/18 19:46 65 14 156/71 100 10/05/18 19:30 66 14 156/71 100 10/05/18 19:16 67 14 156/71 100 10/05/18 19:00 97.7 F 65 14 156/71 100 10/05/18 18:46 66 14 159/74 100 10/05/18 18:30 77 14 159/74 100 10/05/18 18:16 79 14 159/74 100 10/05/18 18:00 82 18 153/75 99 10/05/18 17:46 80 14 153/75 100 10/05/18 17:30 84 16 153/75 100 10/05/18 17:16 91 H 22 153/75 100 10/05/18 17:00 89 21 143/70 99 10/05/18 16:51 85 143/70 100 10/05/18 16:46 71 14 143/70 100 10/05/18 16:30 73 14 143/70 100 10/05/18 16:16 73 14 143/70 100 10/05/18 16:00 97.6 F 77 14 143/70 100 10/05/18 15:46 92 H 14 130/70 100 08/13/19 15:30 77 14 147/93 100 10/05/18 15:16 87 22 147/93 87 10/05/18 15:00 89 31 H 160/65 87 10/05/18 14:46 74 14 160/65 99 10/05/18 14:30 83 14 160/65 10/05/18 14:16 87 25 H 129/77 10/05/18 14:00 100 H 26 H 129/77 10/05/18 13:46 83 22 129/77 10/05/18 13:30 80 15 129/77 99 10/05/18 13:17 79 129/77 99 10/05/18 13:16 79 14 129/77 100 10/05/18 13:00 79 13 129/77 99 10/05/18 12:46 79 14 159/120 100 10/05/18 12:30 78 15 159/120 100 10/05/18 12:16 81 17 159/120 99 10/05/18 12:00 97.3 F L 83 15 159/120 99 10/05/18 11:53 87 151/130 10/05/18 11:46 86 17 151/130 100 10/05/18 11:30 86 14 151/130 99 - Physical Examination General: No Apparent Distress HEENT: Positive: Normocephaly Neck: Positive: trachea midline Cardiac: Positive: Reg Rate and Rhythm Lungs: Positive: Ventilated Respirations Neuro: Positive: Other (JOSHUA - intubated) Abdomen: Positive: Unremarkable /Rectal: Other (deferred) Skin: Positive: Clear, Bruising (left calf ) Musculoskeletal: Decreased Range of Motion Extremities: Present: normal - Labs and Meds CBC 10/06/18 Range/Units 04:24 WBC 5.3 (4.5-11.0) K/mm3 RBC 3.44 L (3.65-5.03) M/mm3 Hgb 10.5 (10.1-14.3) gm/dl Hct 31.5 (30.3-42.9) % Plt Count 160 (140-440) K/mm3 Comprehensive Metabolic Panel 10/06/18 Range/Units 04:24 Sodium 140 (137-145) mmol/L Potassium 3.5 L D (3.6-5.0) mmol/L Chloride 103.2 (98-107) mmol/L Carbon Dioxide 24 (22-30) mmol/L BUN 12 (7-17) mg/dL Creatinine 0.5 L (0.7-1.2) mg/dL Glucose 115 H (65-100) mg/dL Calcium 8.7 (8.4-10.2) mg/dL - Imaging and Cardiology EKG: report reviewed (SR with RBBB) Echo: report reviewed (04/2018: LVEF of 65%, moderate LVH, mild MR, mild TR, mildly dilated LA and mildly dilated RA. ) - Telemetry EKG Rhythm: Sinus Rhythm - EKG Sinus rhythms and dysrhythmias: sinus rhythm Supraventricular dysrhythmia: atrial premature complexe AV and intraventricular conduction: right bundle branch block
--- NOTE | 2018-10-06 11:58 | Progress Note ---
Assessment and Plan 88 y/o female with acute hypoxic respiratory failure, possibly secondary to pneumonia vs volume overload with hypertension. 1. Turn sedation off 2. Extubate today. 3. restart home oral BP medication along with PRN hydralazine 4. Bedside swallow 5. Replace K more aggressively 6. Will give more lasix again today. 7. Will start scheduled duoneb therapy and add BID pulmicort CCT 31 minutes. Subjective Date of service: 10/06/18 Interval history: No acute events. Reviewed office notes and found an Old CXR from May of this year. Left lower lobe infiltrate is the same. likely old scarring. She has Known COPD and old granulomatous disease. She is on spiriva and symbicort daily. Objective Vital Signs - 12hr 10/05/18 10/06/18 10/06/18 23:57 00:00 00:10 Temperature 98.5 F Pulse Rate 74 73 Pulse Rate [ Anterior Bilateral Throughout] Pulse Rate [ 76 From Monitor] Respiratory 14 Rate Respiratory Rate [Anterior Bilateral Throughout] Blood Pressure 134/65 144/72 O2 Sat by Pulse 100 100 Oximetry 10/06/18 10/06/18 10/06/18 00:19 00:30 00:45 Temperature Pulse Rate 72 72 76 Pulse Rate [ Anterior Bilateral Throughout] Pulse Rate [ From Monitor] Respiratory 14 14 14 Rate Respiratory Rate [Anterior Bilateral Throughout] Blood Pressure 141/69 126/60 O2 Sat by Pulse 100 100 100 Oximetry 10/06/18 10/06/18 10/06/18 01:00 01:15 01:16 Temperature Pulse Rate 75 75 71 Pulse Rate [ Anterior Bilateral Throughout] Pulse Rate [ From Monitor] Respiratory 14 14 Rate Respiratory Rate [Anterior Bilateral Throughout] Blood Pressure 126/58 136/55 136/55 O2 Sat by Pulse 100 100 100 Oximetry 10/06/18 10/06/18 10/06/18 01:30 01:45 02:00 Temperature Pulse Rate 70 75 71 Pulse Rate [ Anterior Bilateral Throughout] Pulse Rate [ From Monitor] Respiratory 14 14 14 Rate Respiratory Rate [Anterior Bilateral Throughout] Blood Pressure 144/58 119/58 119/58 O2 Sat by Pulse 100 100 100 Oximetry 10/06/18 10/06/18 10/06/18 02:15 02:30 02:45 Temperature Pulse Rate 72 72 91 H Pulse Rate [ Anterior Bilateral Throughout] Pulse Rate [ From Monitor] Respiratory 14 14 15 Rate Respiratory Rate [Anterior Bilateral Throughout] Blood Pressure 125/55 115/54 115/54 O2 Sat by Pulse 100 100 99 Oximetry 10/06/18 10/06/18 10/06/18 03:01 03:15 03:30 Temperature Pulse Rate 86 88 82 Pulse Rate [ Anterior Bilateral Throughout] Pulse Rate [ From Monitor] Respiratory 16 15 15 Rate Respiratory Rate [Anterior Bilateral Throughout] Blood Pressure 145/72 139/64 138/66 O2 Sat by Pulse 100 99 100 Oximetry 10/06/18 10/06/18 10/06/18 03:45 04:00 04:15 Temperature 97.5 F L Pulse Rate 72 70 82 Pulse Rate [ Anterior Bilateral Throughout] Pulse Rate [ 72 From Monitor] Respiratory 14 14 15 Rate Respiratory Rate [Anterior Bilateral Throughout] Blood Pressure 140/65 141/57 151/64 O2 Sat by Pulse 100 100 100 Oximetry 10/06/18 10/06/18 10/06/18 04:30 04:31 04:45 Temperature Pulse Rate 80 86 92 H Pulse Rate [ Anterior Bilateral Throughout] Pulse Rate [ From Monitor] Respiratory 19 19 Rate Respiratory Rate [Anterior Bilateral Throughout] Blood Pressure 151/64 162/77 151/102 O2 Sat by Pulse 100 100 100 Oximetry 10/06/18 10/06/18 10/06/18 05:01 05:15 05:30 Temperature Pulse Rate 93 H 77 69 Pulse Rate [ Anterior Bilateral Throughout] Pulse Rate [ From Monitor] Respiratory 22 14 14 Rate Respiratory Rate [Anterior Bilateral Throughout] Blood Pressure 160/77 168/74 169/70 O2 Sat by Pulse 99 100 100 Oximetry 10/06/18 10/06/18 10/06/18 05:45 06:01 06:15 Temperature Pulse Rate 71 68 71 Pulse Rate [ Anterior Bilateral Throughout] Pulse Rate [ From Monitor] Respiratory 14 14 14 Rate Respiratory Rate [Anterior Bilateral Throughout] Blood Pressure 159/55 154/63 138/56 O2 Sat by Pulse 100 100 100 Oximetry 10/06/18 10/06/18 10/06/18 06:30 06:45 07:00 Temperature Pulse Rate 81 75 83 Pulse Rate [ Anterior Bilateral Throughout] Pulse Rate [ From Monitor] Respiratory 13 14 14 Rate Respiratory Rate [Anterior Bilateral Throughout] Blood Pressure 143/56 136/57 137/50 O2 Sat by Pulse 100 100 100 Oximetry 10/06/18 10/06/18 10/06/18 07:15 07:30 07:45 Temperature Pulse Rate 75 71 73 Pulse Rate [ Anterior Bilateral Throughout] Pulse Rate [ From Monitor] Respiratory 14 14 14 Rate Respiratory Rate [Anterior Bilateral Throughout] Blood Pressure 129/50 132/52 116/53 O2 Sat by Pulse 100 100 100 Oximetry 10/06/18 10/06/18 10/06/18 08:00 08:15 08:30 Temperature 97.7 F Pulse Rate 69 72 69 Pulse Rate [ Anterior Bilateral Throughout] Pulse Rate [ From Monitor] Respiratory 14 14 14 Rate Respiratory Rate [Anterior Bilateral Throughout] Blood Pressure 121/52 135/45 131/52 O2 Sat by Pulse 100 100 100 Oximetry 10/06/18 10/06/18 10/06/18 08:45 09:00 09:15 Temperature Pulse Rate 73 90 88 Pulse Rate [ Anterior Bilateral Throughout] Pulse Rate [ From Monitor] Respiratory 14 22 19 Rate Respiratory Rate [Anterior Bilateral Throughout] Blood Pressure 120/57 140/68 132/100 O2 Sat by Pulse 100 100 100 Oximetry 10/06/18 10/06/18 10/06/18 09:31 09:45 10:00 Temperature Pulse Rate 83 80 84 Pulse Rate [ Anterior Bilateral Throughout] Pulse Rate [ From Monitor] Respiratory 16 17 14 Rate Respiratory Rate [Anterior Bilateral Throughout] Blood Pressure 154/70 162/70 154/71 O2 Sat by Pulse 100 100 100 Oximetry 10/06/18 10/06/18 10/06/18 10:10 10:15 10:30 Temperature Pulse Rate 91 H 83 86 Pulse Rate [ Anterior Bilateral Throughout] Pulse Rate [ From Monitor] Respiratory 15 14 Rate Respiratory Rate [Anterior Bilateral Throughout] Blood Pressure 154/71 148/65 135/61 O2 Sat by Pulse 100 100 Oximetry 10/06/18 11:30 Temperature Pulse Rate Pulse Rate [ 64 Anterior Bilateral Throughout] Pulse Rate [ From Monitor] Respiratory Rate Respiratory 14 Rate [Anterior Bilateral Throughout] Blood Pressure O2 Sat by Pulse Oximetry Constitutional: no acute distress ENT: other (orally intubated and sedated) Neck: supple Effort: normal Ascultation: Left: rales (base), Bilateral: diminished breath sounds Percussion: Bilateral: not dull Gastrointestinal: normoactive bowel sounds, soft Neurologic: unable to assess CBC and BMP: 10/06/18 04:24 10/06/18 04:24 ABG, PT/INR, D-dimer: ABG POC ABG pH 7.464 (7.35-7.45) H 10/06/18 04:34 ABG pH 7.472 pH Units (7.350-7.450) H 10/05/18 12:30 POC ABG pCO2 34.1 (35-45) L 10/06/18 04:34 ABG pCO2 31.2 mm Hg 10/05/18 12:30 POC ABG pO2 114 (80-105) H 10/06/18 04:34 ABG pO2 119.5 mm Hg (80.0-90.0) H 10/05/18 12:30 POC ABG HCO3 24.5 (22-26 mml/L) 10/06/18 04:34 POC ABG Total CO2 25 (23-27mmol/L) 10/06/18 04:34 POC ABG O2 Sat 99 10/06/18 04:34 ABG O2 Saturation 98.5 % (95.0-99.0) 10/05/18 12:30 PT/INR, D-dimer 1325.24 ng/mlDDU (0-234) H 10/04/18 Unknown Abnormal lab findings: Abnormal Labs 10/04/18 10/04/18 10/04/18 09:25 09:25 09:25 RBC 3.45 L Hct MCHC Plt Count 123 L Lymph % (Auto) 8.0 L [place] % (Auto) Lymph # 0.4 L Seg Neutrophils % 82.0 H D-Dimer POC ABG pH ABG pH POC ABG pCO2 POC ABG pO2 ABG pO2 ABG Hemoglobin Sodium 132 L Potassium Chloride 95.1 L Creatinine 0.5 L Glucose 126 H Calcium AST ALT Troponin T 0.074 H NT-Pro-B Natriuret Pep 7750 H Total Protein Albumin 3.3 L LDL Cholesterol Direct 133 H HDL Cholesterol 64 H 10/04/18 10/04/18 10/04/18 10:18 14:48 Unknown RBC Hct MCHC Plt Count Lymph % (Auto) [place] % (Auto) Lymph # Seg Neutrophils % D-Dimer POC ABG pH 7.499 H ABG pH POC ABG pCO2 32.0 L POC ABG pO2 139 H ABG pO2 ABG Hemoglobin Sodium Potassium Chloride Creatinine Glucose Calcium AST ALT Troponin T 0.037 H D 0.075 H D NT-Pro-B Natriuret Pep Total Protein Albumin LDL Cholesterol Direct HDL Cholesterol 10/04/18 10/05/18 10/05/18 Unknown 04:09 05:49 RBC 3.24 L Hct 29.3 L MCHC 35 H Plt Count 130 L Lymph % (Auto) 12.4 L [place] % (Auto) 8.6 H Lymph # 0.6 L Seg Neutrophils % 75.7 H D-Dimer 1325.24 H POC ABG pH 7.528 H ABG pH POC ABG pCO2 30.5 L POC ABG pO2 166 H ABG pO2 ABG Hemoglobin Sodium Potassium Chloride Creatinine Glucose Calcium AST ALT Troponin T NT-Pro-B Natriuret Pep Total Protein Albumin LDL Cholesterol Direct HDL Cholesterol 10/05/18 10/05/18 10/06/18 05:49 12:30 04:24 RBC 3.44 L Hct MCHC Plt Count Lymph % (Auto) [place] % (Auto) Lymph # Seg Neutrophils % D-Dimer POC ABG pH ABG pH 7.472 H POC ABG pCO2 POC ABG pO2 ABG pO2 119.5 H ABG Hemoglobin 11.3 L Sodium Potassium 2.9 L* D Chloride Creatinine 0.4 L Glucose Calcium 8.2 L AST < 5 L ALT < 5 L Troponin T NT-Pro-B Natriuret Pep Total Protein 5.5 L Albumin 2.8 L LDL Cholesterol Direct HDL Cholesterol 10/06/18 10/06/18 04:24 04:34 RBC Hct MCHC Plt Count Lymph % (Auto) [place] % (Auto) Lymph # Seg Neutrophils % D-Dimer POC ABG pH 7.464 H ABG pH POC ABG pCO2 34.1 L POC ABG pO2 114 H ABG pO2 ABG Hemoglobin Sodium Potassium 3.5 L D Chloride Creatinine 0.5 L Glucose 115 H Calcium AST ALT Troponin T NT-Pro-B Natriuret Pep Total Protein Albumin LDL Cholesterol Direct HDL Cholesterol
[2018-10-06] MEDS ORDERED: POTASSIUM CHLORIDE FEEDTUBE ONE (12:00)
[2018-10-06] MEDS: APRESOLINE IV PRN (12:45)
[2018-10-06] MEDS ORDERED: LASIX IV ONE (13:00)
[2018-10-06] MEDS: PULMICORT IH SCH ×2 (15:54→20:38)
[2018-10-06] MEDS: DUONEB *Not for PRN Use IH SCH ×2 (15:55→20:38)
[2018-10-07] MEDS: DUONEB *Not for PRN Use IH SCH ×4 (01:58→20:40)
[2018-10-07] MEDS: APRESOLINE IV PRN (04:46)
[2018-10-07 05:24] LABS: BUN/Creatinine Ratio 30; Blood Urea Nitrogen 12 mg/dL (7-17); Calcium 8.8 mg/dL (8.4-10.2); Hemolysis Index 33
[2018-10-07] MEDS: PULMICORT IH SCH ×2 (08:12→20:40)
--- NOTE | 2018-10-07 08:48 | Progress Note ---
Assessment and Plan Assessment and plan: Acute respiratory failure. Was intubated, on ventilator Extubated yesterday 10/06 Pulmonology following Fever blood cultures Negative Sepsis ruled out Asymptomatic bacteuria with Enterococcus Does not need treatment Possible left lower lobe pneumonia Was on Rocephin, Zithromax, discontinued Hypertension Hydralazine iv prn Labetalol elevated Troponin cardiology following ischemic eval prior ot dc as per Cardiology Toxic metabolic encephalopathy Hypothyroidism Monitor Dementia. supportive care Hypokalemia Replace hyponatremia Discussed with son at bedside Full code status Patient stable, will transfer to Telemetry History Interval history: Patient extubated yesterday 10/06 Hospitalist Physical - Physical exam Narrative exam: Gen: Not in acute distress, lying in bed, HEENT: Normocephalic, atraumatic Neck: supple, no JVD Heart: S1 and S2 reg, no murmurs, rubs or gallop Lungs: Clear, no crackles, no rhonchi Abd: soft, non tender, non distended, normal BS, Ext: No edema, no clubbing, no cyanosis Neuro: awake,alert,oriented, moves all ext - Constitutional Vitals: Temp Pulse Resp BP Pulse Ox 98.3 F 88 30 H 144/68 100 10/07/18 07:49 10/07/18 08:00 10/07/18 08:00 10/07/18 08:00 10/07/18 08:00 General appearance: Present: other (intubated and sedated) Results - Labs CBC & Chem 7: 10/06/18 04:24 10/07/18 04:23 Labs: Laboratory Last Values WBC 5.3 K/mm3 (4.5-11.0) 10/06/18 04:24 RBC 3.44 M/mm3 (3.65-5.03) L 10/06/18 04:24 Hgb 10.5 gm/dl (10.1-14.3) 10/06/18 04:24 Hct 31.5 % (30.3-42.9) 10/06/18 04:24 MCV 92 fl (79-97) 10/06/18 04:24 MCH 31 pg (28-32) 10/06/18 04:24 MCHC 33 % (30-34) 10/06/18 04:24 RDW 14.4 % (13.2-15.2) 10/06/18 04:24 Plt Count 160 K/mm3 (140-440) 10/06/18 04:24 Lymph % (Auto) 12.4 % (13.4-35.0) L 10/05/18 05:49 [place] % (Auto) 8.6 % (0.0-7.3) H 10/05/18 05:49 Eos % (Auto) 3.1 % (0.0-4.3) 10/05/18 05:49 Baso % (Auto) 0.2 % (0.0-1.8) 10/05/18 05:49 Lymph # 0.6 K/mm3 (1.2-5.4) L 10/05/18 05:49 [place] # 0.4 K/mm3 (0.0-0.8) 10/05/18 05:49 Eos # 0.2 K/mm3 (0.0-0.4) 10/05/18 05:49 Baso # 0.0 K/mm3 (0.0-0.1) 10/05/18 05:49 Seg Neutrophils % 75.7 % (40.0-70.0) H 10/05/18 05:49 Seg Neutrophils # 3.7 K/mm3 (1.8-7.7) 10/05/18 05:49 1325.24 ng/mlDDU (0-234) H 10/04/18 Unknown POC ABG pH 7.464 (7.35-7.45) H 10/06/18 04:34 ABG pH 7.472 pH Units (7.350-7.450) H 10/05/18 12:30 POC ABG pCO2 34.1 (35-45) L 10/06/18 04:34 ABG pCO2 31.2 mm Hg 10/05/18 12:30 POC ABG pO2 114 (80-105) H 10/06/18 04:34 ABG pO2 119.5 mm Hg (80.0-90.0) H 10/05/18 12:30 POC ABG HCO3 24.5 (22-26 mml/L) 10/06/18 04:34 ABG HCO3 22.3 mmol/L (20.0-26.0) 10/05/18 12:30 POC ABG Total CO2 25 (23-27mmol/L) 10/06/18 04:34 POC ABG O2 Sat 99 10/06/18 04:34 ABG O2 Saturation 98.5 % (95.0-99.0) 10/05/18 12:30 ABG O2 Content 15.6 (0.0-44) 10/05/18 12:30 POC ABG Base Excess 1 ((-2) - (+3)mmol/L) 10/06/18 04:34 ABG Base Excess -0.7 mmol/L (-2.0-3.0) 10/05/18 12:30 ABG Hemoglobin 11.3 gm/dl (12.0-16.0) L 10/05/18 12:30 ABG Carboxyhemoglobin 1.5 % (0.0-5.0) 10/05/18 12:30 ABG Methemoglobin 0.6 % (0.0-1.5) 10/05/18 12:30 96.4 % (95.0-99.0) 10/05/18 12:30 28 % 10/06/18 04:34 Sodium 137 mmol/L (137-145) 10/07/18 04:23 Potassium 4.4 mmol/L (3.6-5.0) D 10/07/18 04:23 Chloride 101.6 mmol/L (98-107) 10/07/18 04:23 Carbon Dioxide 22 mmol/L (22-30) 10/07/18 04:23 18 mmol/L 10/07/18 04:23 BUN 12 mg/dL (7-17) 10/07/18 04:23 0.4 mg/dL (0.7-1.2) L 10/07/18 04:23 Estimated GFR > 60 ml/min 10/07/18 04:23 30 % 10/07/18 04:23 Glucose 90 mg/dL (65-100) 10/07/18 04:23 Lactic Acid 1.90 mmol/L (0.7-2.0) 10/04/18 12:13 Calcium 8.8 mg/dL (8.4-10.2) 10/07/18 04:23 Magnesium 2.20 mg/dL (1.7-2.3) 10/05/18 07:14 0.50 mg/dL (0.1-1.2) 10/05/18 05:49 AST < 5 units/L (5-40) L 10/05/18 05:49 ALT < 5 units/L (7-56) L 10/05/18 05:49 77 units/L (35-129) 10/05/18 05:49 < 0.010 ng/mL (0.00-0.029) 10/05/18 12:54 NT-Pro-B Natriuret Pep 7750 pg/mL (0-900) H 10/04/18 09:25 5.5 g/dL (6.3-8.2) L 10/05/18 05:49 2.8 g/dL (3.9-5) L 10/05/18 05:49 1.0 % 10/05/18 05:49 Triglycerides 104 mg/dL (2-149) 10/04/18 09:25 Cholesterol 198 mg/dL (50-199) 10/04/18 09:25 133 mg/dL (50-130) H 10/04/18 09:25 64 mg/dL (40-59) H 10/04/18 09:25 3.09 % 10/04/18 09:25 TSH 2.970 mlU/mL (0.270-4.200) 10/04/18 12:13 Free T4 1.34 ng/dL (0.76-1.46) 10/04/18 12:13 Yellow (Yellow) 10/04/18 Unknown Clear (Clear) 10/04/18 Unknown 5.0 (5.0-7.0) 10/04/18 Unknown Ur Specific [place] 1.016 (1.003-1.030) 10/04/18 Unknown 30 mg/dl mg/dL (Negative) 10/04/18 Unknown 50 mg/dL (Negative) 10/04/18 Unknown Neg mg/dL (Negative) 10/04/18 Unknown Neg (Negative) 10/04/18 Unknown Neg (Negative) 10/04/18 Unknown Neg (Negative) 10/04/18 Unknown < 2.0 mg/dL (<2.0) 10/04/18 Unknown Ur Leukocyte Esterase Neg (Negative) 10/04/18 Unknown 6.0 /HPF (0.0-6.0) 10/04/18 Unknown 5.0 /HPF (0.0-6.0) 10/04/18 Unknown U Epithel Cells (Auto) < 1.0 /HPF (0-13.0) 10/04/18 Unknown 1+ /HPF (Negative) 10/04/18 Unknown Few /HPF 10/04/18 Unknown Active Medications - Current Medications Current Medications: Generic Name Dose Route Start Last Admin Trade Name Freq PRN Reason Stop Dose Admin Albuterol 2.5 mg 10/04/18 11:45 10/06/18 11:29 Proventil IH 2.5 mg Q3HRT PRN Administration Shortness Of Breath Albuterol/Ipratropium 1 ampul 10/06/18 14:00 10/07/18 08:12 Duoneb *Not For Prn Use* IH 1 ampul Q6HRT FAITH Administration Lipase/Protease/Amylase 1 each 10/05/18 15:46 Pancreaze 10,500 Unit FEEDTUBE PRN PRN For Clogged Feeding Tube Aspirin 81 mg 10/05/18 23:00 10/06/18 10:09 Baby Aspirin PO 81 mg QDAY FAITH Administration Budesonide 0.5 mg 10/06/18 13:00 10/07/18 08:12 Pulmicort IH 0.5 mg Q12HRT FAITH Administration Enoxaparin Sodium 30 mg 10/07/18 10:00 Lovenox SUB-Q QDAY FAITH Hydralazine HCl 10 mg 10/05/18 11:16 10/07/18 04:46 Apresoline IV 10 mg Q4H PRN Administration SBP >/=160 Hydrophilic Ointment 1 applic 10/04/18 11:20 Vaseline Lip Therapy TP Q2HR PRN Dry Lips Nicardipine HCl 50 mg/ Sodium 250 mls @ 25 mls/hr 10/04/18 11:00 10/04/18 15:15 Chloride IV 0 mg/hr TITR FAITH 0 mls/hr Titration Protocol 5 MG/HR Propofol 1,000 mg in 100 mls @ 1.129 mls/hr 10/04/18 12:00 10/06/18 18:08 Diprivan 10 Mg/Ml IV 0 mcg/kg/min TITR FAITH 0 mls/hr Titration Protocol 5 MCG/KG/MIN Labetalol HCl 100 mg 10/05/18 12:00 08/14/19 10:10 Normodyne PO 100 mg BID FAITH Administration Lansoprazole 30 mg 10/05/18 10:00 10/06/18 10:09 Prevacid Solutab FEEDTUBE 30 mg QDAY FAITH Administration Multi-Ingred Cream/Lotion/Oil/Oint 1 applic 10/04/18 11:20 Artificial Tears Ophth Oint OU Q4HR PRN Dry Eye(s) Nitroglycerin 0.4 mg 10/04/18 11:45 Nitrostat SL Q5M PRN Chest Pain Oxybutynin Chloride 5 mg 10/05/18 23:00 10/06/18 04:19 Ditropan PO Not Given QHS FAITH Simple Syrup 15 ml 10/05/18 15:46 Simple Syrup FEEDTUBE PRN PRN Hypoglycemia Simple Syrup 30 ml 10/05/18 15:46 Simple Syrup FEEDTUBE PRN PRN Hypoglycemia Sodium Bicarbonate 325 mg 10/05/18 15:46 Sodium Bicarbonate FEEDTUBE PRN PRN For Clogged Feeding Tube Sodium Chloride 10 ml 10/04/18 22:00 10/06/18 10:38 Sodium Chloride Flush Syringe 10 Ml IV 10 ml BID FAITH Administration Sodium Chloride 10 ml 10/04/18 11:45 Sodium Chloride Flush Syringe 10 Ml IV PRN PRN LINE FLUSH Nutrition/Malnutrition Assess - Dietary Evaluation Nutrition/Malnutrition Findings: Nutrition Notes Start: 10/05/18 15:33 Freq: Status: Active Protocol: Document 10/05/18 15:33 RM (Rec: 10/05/18 15:46 RM [id number]) Nutrition Notes Need for Assessment generated from: MD Order Initial or Follow up Assessment Current Diagnosis COPD,Hypertension,Stroke Other Pertinent Diagnosis AMS, Dementia, GERD, Schizophrenia Current Diet NPO Labs/Tests Reviewed Pertinent Medications Lasix, Propofol at 1 ml/hr (26 kcal) Height 4 ft 8 in Weight 38 kg [place] Body Weight (kg) 36.36 BMI 18.8 Subjective/Other Information Consulted for TF recommendation. Pt on vent. Burn Absent Trauma Absent #1 Nutrition Diagnosis Inadequate oral intake Etiology on vent As Evidenced by Signs and Symptoms NPO status Is patient on ventilator? Yes Is Patient Ambulatory and/or Out of Bed No REE-([place]-confined to bed) 803.688 Kcal/Kg value to use for calculation 33 Approximate Energy Requirements Using 1254 kcal/Kg Calculation Used for Recommendations Harmony Ricks Additional Notes Protein Needs: 46-76g (1.2-2g/ kg) Fluid Needs: 1 ml/kcal Nutrition Intervention Nutrition Support: Osmolite 1.5 at 35 ml/hr Water flush of 100 mls q 4 hrs . Kcal 1,260 Protein (gm) 53 Fluid (mL) 640 Goal #1 TF tolerance Goal #2 Meet at least 80% of calorie and protein needs via TF Anticipated Discharge Needs: Unable to determine at this time Follow-Up By: 10/07/18 Additional Comments Follow for new TF
--- NOTE | 2018-10-07 10:27 | Progress Note ---
Assessment and Plan The patient's cardiac status is stable. Her respiratory failure is not likely of cardiac etiology. We will sign off. We recommend ischemic evaluation as outpatient in our office. The patient has been seen in conjunction with Dr. Rock, who agrees with assessment and plan. - Patient Problems (1) Respiratory failure Current Visit: Yes Status: Acute Qualifiers: Chronicity: acute Respiratory failure complication: hypoxia Qualified Code(s): J96.01 - Acute respiratory failure with hypoxia (2) COPD (chronic obstructive pulmonary disease) Current Visit: Yes Status: Acute Qualifiers: Chronic bronchitis type: mixed simple and mucopurulent (3) Pleural effusion Current Visit: Yes Status: Acute (4) Pneumonia Current Visit: Yes Status: Acute (5) History of hemorrhagic cerebrovascular accident (CVA) with residual deficit Current Visit: No Status: Chronic (6) GERD (gastroesophageal reflux disease) Current Visit: No Status: Chronic Qualifiers: Esophagitis presence: without esophagitis Qualified Code(s): K21.9 - Gastro-esophageal reflux disease without esophagitis (7) Elevated troponin Current Visit: Yes Status: Acute Subjective Date of service: 10/07/18 Interval history: Patient is now extubated and asleep, resting comfortably. She is in SR with rates in the 80s on telemetry. Objective Last Vital Signs Temp 98.3 F 10/07/18 07:49 Pulse 91 H 10/07/18 10:15 Resp 26 H 10/07/18 10:15 BP 136/68 10/07/18 10:15 Pulse Ox 100 10/07/18 10:15 - Physical Examination General: No Apparent Distress HEENT: Positive: Normocephaly Neck: Positive: trachea midline Cardiac: Positive: Reg Rate and Rhythm Lungs: Positive: Decreased Breath Sounds Abdomen: Positive: Unremarkable /Rectal: Other (deferred) Skin: Positive: Bruising (left calf ) Musculoskeletal: Decreased Range of Motion Extremities: Present: normal - Labs and Meds Comprehensive Metabolic Panel 10/07/18 Range/Units 04:23 Sodium 137 (137-145) mmol/L Potassium 4.4 D (3.6-5.0) mmol/L Chloride 101.6 (98-107) mmol/L Carbon Dioxide 22 (22-30) mmol/L BUN 12 (7-17) mg/dL Creatinine 0.4 L (0.7-1.2) mg/dL Glucose 90 (65-100) mg/dL Calcium 8.8 (8.4-10.2) mg/dL - Imaging and Cardiology EKG: report reviewed (SR with RBBB) Echo: report reviewed (04/2018: LVEF of 65%, moderate LVH, mild MR, mild TR, mildly dilated LA and mildly dilated RA. ) - Telemetry EKG Rhythm: Sinus Rhythm - EKG Sinus rhythms and dysrhythmias: sinus rhythm AV and intraventricular conduction: right bundle branch block
[2018-10-07] MEDS: LOVENOX SUB-Q SCH (11:26)
[2018-10-07] MEDS: BABY ASPIRIN PO SCH (11:26)
[2018-10-07] MEDS: PREVACID SOLUTAB FEEDTUBE SCH (11:26)
[2018-10-07] MEDS: NORMODYNE PO SCH ×3 (11:27→21:27)
[2018-10-07] MEDS: SODIUM CHLORIDE FLUSH SYRINGE 10 ML IV SCH ×3 (11:28→21:28)
--- NOTE | 2018-10-07 11:58 | Progress Note ---
Assessment and Plan Cultures: 10/04/2018 blood culture: No growth 10/04/2018 sputum culture: Usual respiratory rene 10/04/2018 urine culture: Enterococcus species A/P: 88-year-old female with hypertension, hypothyroidism, anemia, schizophrenia, dementia, CVA with: 1) Acute hypoxic respiratory failure: Likely from pulmonary edema. Also possible left lower lobe pneumonia. No fevers or leukocytosis. Respiratory culture growing usual respiratory rene. UA does not show any significant pyuria. Urine culture growing enterococcus is reflective of asymptomatic bacteriuria and doesn't need treatment. Now extubated. Doing well off abx. 2) NSTEMI: cardiology following. 3) Asymptomatic bacteruria: no abx needed. UA with no significant pyuria. Urine culture growing Enterococcus. No fever. Recs: doing well off abx Will sign off. Please call with questions. Ridge Knutson MD, FACP [facility] C: [phone] O: [phone] F: [phone] Subjective Date of service: 10/07/18 Interval history: Extubated. Doing well. No complaints. Son at bedside. Objective - Exam Narrative Exam: Physical Exam: Constitutional: awake, alert Head, Ears, Nose: Normocephalic, atraumatic. External ears, nose normal Eyes: Conjunctivae/corneas clear. No icterus. No ptosis. Neck: Supple, no meningeal signs Cardiovascular: S1, S2 normal. Respiratory: Good air entry, clear to auscultation bilaterally GI: Soft, non-tender; bowel sounds normal. No peritoneal signs Musculoskeletal: No pedal edema, no cyanosis. Skin: No rash or abscess Hem/Lymphatic: No palpable cervical or supraclavicular nodes. No lymphangitis Psych: no agitation Neurological: awake, alert - Constitutional Vitals: Vital Signs Temp Pulse Resp BP Pulse Ox 98.3 F 90 16 110/52 100 10/07/18 07:49 10/07/18 11:27 10/07/18 11:15 10/07/18 11:27 10/07/18 11:15 Temperature -Last 24 Hours Temperature 98.3 F Temperature 97.8 F Temperature 98.0 F Temperature 97.8 F Temperature 97.8 F Temperature 97.8 F Temperature 97.6 F - Labs CBC & Chem 7: 10/06/18 04:24 10/07/18 04:23 Labs: Abnormal lab results 10/07/18 Range/Units 04:23 Creatinine 0.4 L (0.7-1.2) mg/dL
--- NOTE | 2018-10-07 14:09 | Progress Note ---
Assessment and Plan 88 y/o female with acute hypoxic respiratory failure, possibly secondary to pneumonia vs volume overload with hypertension. 1. Continue BID pulmicort and scheduled nebs 2. Watch volmue status. may benefit from more lasix therapy 3. BP control 4. Agree with transfer out of unit 5. Will continue to follow. Subjective Date of service: 10/07/18 Interval history: No acute events. Successful extubation. Family at bedside. Objective Vital Signs - 12hr 10/07/18 10/07/18 10/07/18 02:15 02:30 02:45 Temperature Pulse Rate 68 69 71 Pulse Rate [ From Monitor] Pulse Rate [ None] Respiratory 14 17 14 Rate Blood Pressure 161/74 161/69 143/71 O2 Sat by Pulse 100 100 100 Oximetry 10/07/18 10/07/18 10/07/18 03:00 03:15 03:30 Temperature Pulse Rate 72 79 84 Pulse Rate [ From Monitor] Pulse Rate [ None] Respiratory 14 23 20 Rate Blood Pressure 141/65 144/80 154/81 O2 Sat by Pulse 99 100 99 Oximetry 10/07/18 10/07/18 10/07/18 03:45 04:00 04:15 Temperature 97.8 F Pulse Rate 78 81 81 Pulse Rate [ 76 From Monitor] Pulse Rate [ None] Respiratory 16 21 20 Rate Blood Pressure 165/81 173/81 173/81 O2 Sat by Pulse 100 100 100 Oximetry 10/07/18 10/07/18 10/07/18 04:30 04:45 04:46 Temperature Pulse Rate 78 75 75 Pulse Rate [ From Monitor] Pulse Rate [ None] Respiratory 18 32 H Rate Blood Pressure 174/76 169/68 173/67 O2 Sat by Pulse 100 100 Oximetry 10/07/18 10/07/18 10/07/18 05:01 05:15 05:31 Temperature Pulse Rate 92 H 93 H 82 Pulse Rate [ From Monitor] Pulse Rate [ None] Respiratory 35 H 26 H 16 Rate Blood Pressure 163/55 163/58 104/48 O2 Sat by Pulse 99 99 97 Oximetry 10/07/18 10/07/18 10/07/18 05:45 06:00 06:15 Temperature Pulse Rate 94 H 93 H 84 Pulse Rate [ From Monitor] Pulse Rate [ None] Respiratory 20 26 H 14 Rate Blood Pressure 104/48 121/60 105/53 O2 Sat by Pulse 98 99 98 Oximetry 10/07/18 10/07/18 10/07/18 06:30 06:45 07:01 Temperature Pulse Rate 81 90 91 H Pulse Rate [ From Monitor] Pulse Rate [ None] Respiratory 15 18 26 H Rate Blood Pressure 110/51 127/61 136/65 O2 Sat by Pulse 98 99 98 Oximetry 10/07/18 10/07/18 10/07/18 07:15 07:30 07:45 Temperature Pulse Rate 88 86 87 Pulse Rate [ From Monitor] Pulse Rate [ None] Respiratory 22 28 H 19 Rate Blood Pressure 127/67 137/62 135/69 O2 Sat by Pulse 99 100 100 Oximetry 10/07/18 10/07/18 10/07/18 07:49 07:52 08:00 Temperature 98.3 F Pulse Rate 88 Pulse Rate [ 88 From Monitor] Pulse Rate [ None] Respiratory 24 30 H Rate Blood Pressure 144/68 O2 Sat by Pulse 100 100 Oximetry 10/07/18 10/07/18 10/07/18 08:15 08:30 08:45 Temperature Pulse Rate 84 86 84 Pulse Rate [ From Monitor] Pulse Rate [ None] Respiratory 23 25 H 15 Rate Blood Pressure 132/62 143/67 121/58 O2 Sat by Pulse 100 100 100 Oximetry 10/07/18 10/07/18 10/07/18 09:00 09:15 09:30 Temperature Pulse Rate 83 90 85 Pulse Rate [ From Monitor] Pulse Rate [ None] Respiratory 14 16 15 Rate Blood Pressure 119/58 113/59 119/57 O2 Sat by Pulse 100 100 100 Oximetry 10/07/18 10/07/18 10/07/18 09:45 10:00 10:15 Temperature Pulse Rate 87 84 91 H Pulse Rate [ From Monitor] Pulse Rate [ None] Respiratory 15 13 26 H Rate Blood Pressure 116/64 120/60 136/68 O2 Sat by Pulse 100 100 100 Oximetry 10/07/18 10/07/18 10/07/18 10:30 10:37 10:45 Temperature Pulse Rate 91 H 89 95 H Pulse Rate [ From Monitor] Pulse Rate [ None] Respiratory 21 30 H Rate Blood Pressure 142/67 135/69 O2 Sat by Pulse 100 99 Oximetry 10/07/18 10/07/18 10/07/18 11:00 11:15 11:27 Temperature Pulse Rate 92 H 83 90 Pulse Rate [ From Monitor] Pulse Rate [ None] Respiratory 17 16 Rate Blood Pressure 120/55 110/52 110/52 O2 Sat by Pulse 100 100 Oximetry 10/07/18 10/07/18 10/07/18 11:30 11:45 12:00 Temperature 97.6 F Pulse Rate 86 95 H 87 Pulse Rate [ 89 From Monitor] Pulse Rate [ 86 None] Respiratory 16 21 22 Rate Blood Pressure 124/59 140/100 151/80 O2 Sat by Pulse 99 98 100 Oximetry 10/07/18 10/07/18 12:15 12:30 Temperature Pulse Rate 89 96 H Pulse Rate [ From Monitor] Pulse Rate [ None] Respiratory 20 22 Rate Blood Pressure 160/79 142/66 O2 Sat by Pulse 100 100 Oximetry Constitutional: no acute distress Neck: supple Effort: normal Ascultation: Left: rales (base), Bilateral: diminished breath sounds Percussion: Bilateral: not dull Gastrointestinal: normoactive bowel sounds, soft Neurologic: unable to assess CBC and BMP: 10/06/18 04:24 10/07/18 04:23 ABG, PT/INR, D-dimer: ABG POC ABG pH 7.464 (7.35-7.45) H 10/06/18 04:34 ABG pH 7.472 pH Units (7.350-7.450) H 10/05/18 12:30 POC ABG pCO2 34.1 (35-45) L 10/06/18 04:34 ABG pCO2 31.2 mm Hg 10/05/18 12:30 POC ABG pO2 114 (80-105) H 10/06/18 04:34 ABG pO2 119.5 mm Hg (80.0-90.0) H 10/05/18 12:30 POC ABG HCO3 24.5 (22-26 mml/L) 10/06/18 04:34 POC ABG Total CO2 25 (23-27mmol/L) 10/06/18 04:34 POC ABG O2 Sat 99 10/06/18 04:34 ABG O2 Saturation 98.5 % (95.0-99.0) 10/05/18 12:30 PT/INR, D-dimer 1325.24 ng/mlDDU (0-234) H 10/04/18 Unknown Abnormal lab findings: Abnormal Labs 0810/04/18 10/04/18 09:25 09:25 09:25 RBC 3.45 L Hct MCHC Plt Count 123 L Lymph % (Auto) 8.0 L Cook % (Auto) Lymph # 0.4 L Seg Neutrophils % 82.0 H D-Dimer POC ABG pH ABG pH POC ABG pCO2 POC ABG pO2 ABG pO2 ABG Hemoglobin Sodium 132 L Potassium Chloride 95.1 L Creatinine 0.5 L Glucose 126 H Calcium AST ALT Troponin T 0.074 H NT-Pro-B Natriuret Pep 7750 H Total Protein Albumin 3.3 L LDL Cholesterol Direct 133 H HDL Cholesterol 64 H 10/04/18 10/04/18 10/04/18 10:18 14:48 Unknown RBC Hct MCHC Plt Count Lymph % (Auto) Cook % (Auto) Lymph # Seg Neutrophils % D-Dimer POC ABG pH 7.499 H ABG pH POC ABG pCO2 32.0 L POC ABG pO2 139 H ABG pO2 ABG Hemoglobin Sodium Potassium Chloride Creatinine Glucose Calcium AST ALT Troponin T 0.037 H D 0.075 H D NT-Pro-B Natriuret Pep Total Protein Albumin LDL Cholesterol Direct HDL Cholesterol 10/04/18 10/05/18 10/05/18 Unknown 04:09 05:49 RBC 3.24 L Hct 29.3 L MCHC 35 H Plt Count 130 L Lymph % (Auto) 12.4 L Cook % (Auto) 8.6 H Lymph # 0.6 L Seg Neutrophils % 75.7 H D-Dimer 1325.24 H POC ABG pH 7.528 H ABG pH POC ABG pCO2 30.5 L POC ABG pO2 166 H ABG pO2 ABG Hemoglobin Sodium Potassium Chloride Creatinine Glucose Calcium AST ALT Troponin T NT-Pro-B Natriuret Pep Total Protein Albumin LDL Cholesterol Direct HDL Cholesterol 10/05/18 10/05/18 10/06/18 05:49 12:30 04:24 RBC 3.44 L Hct MCHC Plt Count Lymph % (Auto) Cook % (Auto) Lymph # Seg Neutrophils % D-Dimer POC ABG pH ABG pH 7.472 H POC ABG pCO2 POC ABG pO2 ABG pO2 119.5 H ABG Hemoglobin 11.3 L Sodium Potassium 2.9 L* D Chloride Creatinine 0.4 L Glucose Calcium 8.2 L AST < 5 L ALT < 5 L Troponin T NT-Pro-B Natriuret Pep Total Protein 5.5 L Albumin 2.8 L LDL Cholesterol Direct HDL Cholesterol 10/06/18 10/06/18 10/07/18 04:24 04:34 04:23 RBC Hct MCHC Plt Count Lymph % (Auto) Cook % (Auto) Lymph # Seg Neutrophils % D-Dimer POC ABG pH 7.464 H ABG pH POC ABG pCO2 34.1 L POC ABG pO2 114 H ABG pO2 ABG Hemoglobin Sodium Potassium 3.5 L D Chloride Creatinine 0.5 L 0.4 L Glucose 115 H Calcium AST ALT Troponin T NT-Pro-B Natriuret Pep Total Protein Albumin LDL Cholesterol Direct HDL Cholesterol
[2018-10-07] MEDS: DITROPAN PO SCH ×2 (20:40→21:27)
[2018-10-08] MEDS: DUONEB *Not for PRN Use IH SCH ×4 (01:39→21:58)
[2018-10-08 06:39] LABS: BUN/Creatinine Ratio 36; Blood Urea Nitrogen 18 mg/dL (7-17); Calcium 8.7 mg/dL (8.4-10.2); Hemolysis Index 4
[2018-10-08] MEDS: PULMICORT IH SCH ×2 (07:58→21:59)
[2018-10-08] MEDS: PREVACID SOLUTAB FEEDTUBE SCH (09:38)
[2018-10-08] MEDS: BABY ASPIRIN PO SCH (09:39)
[2018-10-08] MEDS: NORMODYNE PO SCH ×2 (09:42→22:00)
[2018-10-08] MEDS: LOVENOX SUB-Q SCH (09:43)
[2018-10-08] MEDS: SODIUM CHLORIDE FLUSH SYRINGE 10 ML IV SCH ×2 (09:48→22:00)
--- NOTE | 2018-10-08 13:13 | Progress Note ---
Assessment and Plan Imp: 1. Accelerated HTN on admit with probable pulmonary edema due to the same 2. 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 COPD per history 4. Acute respiratory failure, hypoxia 5. Encephalopathy, resolved 6. Hyponatremia Rec: 1. BP control in light of #1 2. Repeat CXR; the LLL findings are chronic -> doubt pneumonia per above 3. Acute respiratory failure, hypoxia 4. Mentation appears to be at baseline 5. Cont. nebs; resume Symbicort and Spiriva at d/c 6. Wean off O2 to keep sats 88% or > 7. Purred diet w/ thin liquids per ST 8. Mobilize Plan of care reviewed with patient's son, he understand/agrees Subjective Date of service: 10/08/18 Principal diagnosis: Acute respiratory failure Interval history: No events. Awake, alert in bed. No complaints. On 2L NC. Active Medications Albuterol (Proventil) 2.5 mg IH Q3HRT PRN PRN Reason: Shortness Of Breath Last Admin: 10/06/18 11:29 Dose: 2.5 mg Documented by: Albuterol/Ipratropium (Duoneb *Not For Prn Use*) 1 ampul IH Q6HRT [facility] Last Admin: 10/08/18 14:08 Dose: 1 ampul Documented by: Lipase/Protease/Amylase ([place] 10,500 Unit) 1 each FEEDTUBE PRN PRN PRN Reason: For Clogged Feeding Tube Aspirin (Baby Aspirin) 81 mg PO QDAY [facility] Last Admin: 10/08/18 09:39 Dose: 81 mg Documented by: Budesonide (Pulmicort) 0.5 mg IH Q12HRT [facility] Last Admin: 10/08/18 07:58 Dose: 0.5 mg Documented by: Enoxaparin Sodium (Lovenox) 30 mg SUB-Q QDAY [facility] Last Admin: 10/08/18 09:43 Dose: 30 mg Documented by: Hydralazine HCl (Apresoline) 10 mg IV Q4H PRN PRN Reason: SBP >/=160 Last Admin: 10/07/18 04:46 Dose: 10 mg Documented by: Hydrophilic Ointment (Vaseline Lip Therapy) 1 applic TP Q2HR PRN PRN Reason: Dry Lips Labetalol HCl (Normodyne) 100 mg PO BID [facility] Last Admin: 10/08/18 09:42 Dose: 100 mg Documented by: Lansoprazole (Prevacid Solutab) 30 mg FEEDTUBE QDAY [facility] Last Admin: 10/08/18 09:38 Dose: 30 mg Documented by: Multi-Ingred Cream/Lotion/Oil/Oint (Artificial Tears Ophth Oint) 1 applic OU Q4HR PRN PRN Reason: Dry Eye(s) Nitroglycerin (Nitrostat) 0.4 mg SL Q5M PRN PRN Reason: Chest Pain Oxybutynin Chloride (Ditropan) 5 mg PO QHS [facility] Last Admin: 10/07/18 21:27 Dose: 5 mg Documented by: Simple Syrup (Simple Syrup) 15 ml FEEDTUBE PRN PRN PRN Reason: Hypoglycemia Simple Syrup (Simple Syrup) 30 ml FEEDTUBE PRN PRN PRN Reason: Hypoglycemia Sodium Bicarbonate (Sodium Bicarbonate) 325 mg FEEDTUBE PRN PRN PRN Reason: For Clogged Feeding Tube Sodium Chloride (Sodium Chloride Flush Syringe 10 Ml) 10 ml IV BID [facility] Last Admin: 10/08/18 09:48 Dose: 10 ml Documented by: Sodium Chloride (Sodium Chloride Flush Syringe 10 Ml) 10 ml IV PRN PRN PRN Reason: LINE FLUSH Objective Vital Signs - 12hr 10/08/18 10/08/18 10/08/18 01:40 02:00 04:20 Temperature 98.2 F 98.6 F Pulse Rate 68 77 Pulse Rate [ 88 Anterior Bilateral Throughout] Respiratory 18 18 Rate Respiratory 18 Rate [Anterior Bilateral Throughout] Blood Pressure 139/61 Blood Pressure 138/78 [Right] O2 Sat by Pulse 92 98 Oximetry 10/08/18 10/08/18 10/08/18 07:58 08:03 09:16 Temperature 98.4 F Pulse Rate 80 77 Pulse Rate [ 74 Anterior Bilateral Throughout] Respiratory 16 Rate Respiratory 20 Rate [Anterior Bilateral Throughout] Blood Pressure 162/78 Blood Pressure [Right] O2 Sat by Pulse 98 98 Oximetry 10/08/18 10/08/18 09:42 11:46 Temperature 97.9 F Pulse Rate 80 71 Pulse Rate [ Anterior Bilateral Throughout] Respiratory 16 Rate Respiratory Rate [Anterior Bilateral Throughout] Blood Pressure 162/78 141/63 Blood Pressure [Right] O2 Sat by Pulse 98 Oximetry Constitutional: no acute distress Eyes: non-icteric Neck: supple Effort: normal Ascultation: Left: diminished breath sounds (base), Bilateral: clear Percussion: Bilateral: not dull Cardiovascular: regular rate and rhythm (no mrg) Gastrointestinal: normoactive bowel sounds, soft, non-tender, non-distended Integumentary: normal Extremities: no cyanosis, no edema, pink and warm Neurologic: normal mental status, non-focal exam, pupils equal and round, CN II- XII normal Psychiatric: mood appropriate, affect normal CBC and BMP: 10/06/18 04:24 10/08/18 05:38 ABG, PT/INR, D-dimer: ABG POC ABG pH 7.464 (7.35-7.45) H 10/06/18 04:34 ABG pH 7.472 pH Units (7.350-7.450) H 10/05/18 12:30 POC ABG pCO2 34.1 (35-45) L 10/06/18 04:34 ABG pCO2 31.2 mm Hg 10/05/18 12:30 POC ABG pO2 114 (80-105) H 10/06/18 04:34 ABG pO2 119.5 mm Hg (80.0-90.0) H 10/05/18 12:30 POC ABG HCO3 24.5 (22-26 mml/L) 10/06/18 04:34 POC ABG Total CO2 25 (23-27mmol/L) 10/06/18 04:34 POC ABG O2 Sat 99 10/06/18 04:34 ABG O2 Saturation 98.5 % (95.0-99.0) 10/05/18 12:30 PT/INR, D-dimer 1325.24 ng/mlDDU (0-234) H 10/04/18 Unknown Abnormal lab findings: Abnormal Labs 10/04/18 10/04/18 10/04/18 09:25 09:25 09:25 RBC 3.45 L Hct MCHC Plt Count 123 L Lymph % (Auto) 8.0 L Dare % (Auto) Lymph # 0.4 L Seg Neutrophils % 82.0 H D-Dimer POC ABG pH ABG pH POC ABG pCO2 POC ABG pO2 ABG pO2 ABG Hemoglobin Sodium 132 L Potassium Chloride 95.1 L BUN Creatinine 0.5 L Glucose 126 H Calcium AST ALT Troponin T 0.074 H NT-Pro-B Natriuret Pep 7750 H Total Protein Albumin 3.3 L LDL Cholesterol Direct 133 H HDL Cholesterol 64 H 10/04/18 10/04/18 10/04/18 10:18 14:48 Unknown RBC Hct MCHC Plt Count Lymph % (Auto) Dare % (Auto) Lymph # Seg Neutrophils % D-Dimer POC ABG pH 7.499 H ABG pH POC ABG pCO2 32.0 L POC ABG pO2 139 H ABG pO2 ABG Hemoglobin Sodium Potassium Chloride BUN Creatinine Glucose Calcium AST ALT Troponin T 0.037 H D 0.075 H D NT-Pro-B Natriuret Pep Total Protein Albumin LDL Cholesterol Direct HDL Cholesterol 10/04/18 10/05/18 10/05/18 Unknown 04:09 05:49 RBC 3.24 L Hct 29.3 L MCHC 35 H Plt Count 130 L Lymph % (Auto) 12.4 L Dare % (Auto) 8.6 H Lymph # 0.6 L Seg Neutrophils % 75.7 H D-Dimer 1325.24 H POC ABG pH 7.528 H ABG pH POC ABG pCO2 30.5 L POC ABG pO2 166 H ABG pO2 ABG Hemoglobin Sodium Potassium Chloride BUN Creatinine Glucose Calcium AST ALT Troponin T NT-Pro-B Natriuret Pep Total Protein Albumin LDL Cholesterol Direct HDL Cholesterol 10/05/18 10/05/18 10/06/18 05:49 12:30 04:24 RBC 3.44 L Hct MCHC Plt Count Lymph % (Auto) Dare % (Auto) Lymph # Seg Neutrophils % D-Dimer POC ABG pH ABG pH 7.472 H POC ABG pCO2 POC ABG pO2 ABG pO2 119.5 H ABG Hemoglobin 11.3 L Sodium Potassium 2.9 L* D Chloride BUN Creatinine 0.4 L Glucose Calcium 8.2 L AST < 5 L ALT < 5 L Troponin T NT-Pro-B Natriuret Pep Total Protein 5.5 L Albumin 2.8 L LDL Cholesterol Direct HDL Cholesterol 10/06/18 10/06/18 10/07/18 04:24 04:34 04:23 RBC Hct MCHC Plt Count Lymph % (Auto) Dare % (Auto) Lymph # Seg Neutrophils % D-Dimer POC ABG pH 7.464 H ABG pH POC ABG pCO2 34.1 L POC ABG pO2 114 H ABG pO2 ABG Hemoglobin Sodium Potassium 3.5 L D Chloride BUN Creatinine 0.5 L 0.4 L Glucose 115 H Calcium AST ALT Troponin T NT-Pro-B Natriuret Pep Total Protein Albumin LDL Cholesterol Direct HDL Cholesterol 10/08/18 05:38 RBC Hct MCHC Plt Count Lymph % (Auto) Dare % (Auto) Lymph # Seg Neutrophils % D-Dimer POC ABG pH ABG pH POC ABG pCO2 POC ABG pO2 ABG pO2 ABG Hemoglobin Sodium 135 L Potassium Chloride BUN 18 H Creatinine 0.5 L Glucose 111 H Calcium AST ALT Troponin T NT-Pro-B Natriuret Pep Total Protein Albumin LDL Cholesterol Direct HDL Cholesterol Chest x-ray: report reviewed, image reviewed (chronic LLL findings with bilateral edema)
--- NOTE | 2018-10-08 15:55 | Progress Note ---
Assessment and Plan Assessment and plan: Acute respiratory failure. Was intubated, on ventilator Extubated 10/06 Pulmonology following Fever blood cultures Negative Sepsis ruled out Asymptomatic bacteuria with Enterococcus Does not need treatment, as per ID Possible left lower lobe pneumonia Was on Rocephin, Zithromax, discontinued Hypertension Hydralazine iv prn Labetalol elevated Troponin cardiology following ischemic eval as an outpatient, as per Cardiology Toxic metabolic encephalopathy Hypothyroidism Monitor Dementia. supportive care Hypokalemia Replace hyponatremia Discussed with son at bedside Full code status Gen weakness: Consult PT History Interval history: Patient extubated 10/06 no chest pain generalized weakness Hospitalist Physical - Physical exam Narrative exam: Gen: Not in acute distress, lying in bed, HEENT: Normocephalic, atraumatic Neck: supple, no JVD Heart: S1 and S2 reg, no murmurs, rubs or gallop Lungs: Clear, no crackles, no rhonchi Abd: soft, non tender, non distended, normal BS, Ext: No edema, no clubbing, no cyanosis Neuro: awake,alert, moves all ext - Constitutional Vitals: Temp Pulse Resp BP Pulse Ox 97.9 F 70 20 141/63 98 10/08/18 11:46 10/08/18 14:08 10/08/18 14:08 10/08/18 11:46 10/08/18 11:46 Results - Labs CBC & Chem 7: 10/06/18 04:24 10/08/18 05:38 Labs: Laboratory Last Values WBC 5.3 K/mm3 (4.5-11.0) 10/06/18 04:24 RBC 3.44 M/mm3 (3.65-5.03) L 10/06/18 04:24 Hgb 10.5 gm/dl (10.1-14.3) 10/06/18 04:24 Hct 31.5 % (30.3-42.9) 10/06/18 04:24 MCV 92 fl (79-97) 10/06/18 04:24 MCH 31 pg (28-32) 10/06/18 04:24 MCHC 33 % (30-34) 10/06/18 04:24 RDW 14.4 % (13.2-15.2) 10/06/18 04:24 Plt Count 160 K/mm3 (140-440) 10/06/18 04:24 Lymph % (Auto) 12.4 % (13.4-35.0) L 10/05/18 05:49 [place] % (Auto) 8.6 % (0.0-7.3) H 10/05/18 05:49 Eos % (Auto) 3.1 % (0.0-4.3) 10/05/18 05:49 Baso % (Auto) 0.2 % (0.0-1.8) 10/05/18 05:49 Lymph # 0.6 K/mm3 (1.2-5.4) L 10/05/18 05:49 [place] # 0.4 K/mm3 (0.0-0.8) 10/05/18 05:49 Eos # 0.2 K/mm3 (0.0-0.4) 10/05/18 05:49 Baso # 0.0 K/mm3 (0.0-0.1) 10/05/18 05:49 Seg Neutrophils % 75.7 % (40.0-70.0) H 10/05/18 05:49 Seg Neutrophils # 3.7 K/mm3 (1.8-7.7) 10/05/18 05:49 1325.24 ng/mlDDU (0-234) H 10/04/18 Unknown POC ABG pH 7.464 (7.35-7.45) H 10/06/18 04:34 ABG pH 7.472 pH Units (7.350-7.450) H 10/05/18 12:30 POC ABG pCO2 34.1 (35-45) L 10/06/18 04:34 ABG pCO2 31.2 mm Hg 10/05/18 12:30 POC ABG pO2 114 (80-105) H 10/06/18 04:34 ABG pO2 119.5 mm Hg (80.0-90.0) H 10/05/18 12:30 POC ABG HCO3 24.5 (22-26 mml/L) 10/06/18 04:34 ABG HCO3 22.3 mmol/L (20.0-26.0) 10/05/18 12:30 POC ABG Total CO2 25 (23-27mmol/L) 10/06/18 04:34 POC ABG O2 Sat 99 10/06/18 04:34 ABG O2 Saturation 98.5 % (95.0-99.0) 10/05/18 12:30 ABG O2 Content 15.6 (0.0-44) 10/05/18 12:30 POC ABG Base Excess 1 ((-2) - (+3)mmol/L) 10/06/18 04:34 ABG Base Excess -0.7 mmol/L (-2.0-3.0) 10/05/18 12:30 ABG Hemoglobin 11.3 gm/dl (12.0-16.0) L 10/05/18 12:30 ABG Carboxyhemoglobin 1.5 % (0.0-5.0) 10/05/18 12:30 ABG Methemoglobin 0.6 % (0.0-1.5) 10/05/18 12:30 96.4 % (95.0-99.0) 10/05/18 12:30 28 % 10/06/18 04:34 Sodium 135 mmol/L (137-145) L 10/08/18 05:38 Potassium 4.8 mmol/L (3.6-5.0) 10/08/18 05:38 Chloride 99.0 mmol/L (98-107) 10/08/18 05:38 Carbon Dioxide 27 mmol/L (22-30) 10/08/18 05:38 14 mmol/L 10/08/18 05:38 BUN 18 mg/dL (7-17) H 10/08/18 05:38 0.5 mg/dL (0.7-1.2) L 10/08/18 05:38 Estimated GFR > 60 ml/min 10/08/18 05:38 36 % 10/08/18 05:38 Glucose 111 mg/dL (65-100) H 10/08/18 05:38 Lactic Acid 1.90 mmol/L (0.7-2.0) 10/04/18 12:13 Calcium 8.7 mg/dL (8.4-10.2) 10/08/18 05:38 Magnesium 2.20 mg/dL (1.7-2.3) 10/05/18 07:14 0.50 mg/dL (0.1-1.2) 10/05/18 05:49 AST < 5 units/L (5-40) L 10/05/18 05:49 ALT < 5 units/L (7-56) L 10/05/18 05:49 77 units/L (35-129) 10/05/18 05:49 < 0.010 ng/mL (0.00-0.029) 10/05/18 12:54 NT-Pro-B Natriuret Pep 7750 pg/mL (0-900) H 10/04/18 09:25 5.5 g/dL (6.3-8.2) L 10/05/18 05:49 2.8 g/dL (3.9-5) L 10/05/18 05:49 1.0 % 10/05/18 05:49 Triglycerides 104 mg/dL (2-149) 10/04/18 09:25 Cholesterol 198 mg/dL (50-199) 10/04/18 09:25 133 mg/dL (50-130) H 10/04/18 09:25 64 mg/dL (40-59) H 10/04/18 09:25 3.09 % 10/04/18 09:25 TSH 2.970 mlU/mL (0.270-4.200) 10/04/18 12:13 Free T4 1.34 ng/dL (0.76-1.46) 10/04/18 12:13 Yellow (Yellow) 10/04/18 Unknown Clear (Clear) 10/04/18 Unknown 5.0 (5.0-7.0) 10/04/18 Unknown Ur Specific [place] 1.016 (1.003-1.030) 10/04/18 Unknown 30 mg/dl mg/dL (Negative) 10/04/18 Unknown 50 mg/dL (Negative) 10/04/18 Unknown Neg mg/dL (Negative) 10/04/18 Unknown Neg (Negative) 10/04/18 Unknown Neg (Negative) 10/04/18 Unknown Neg (Negative) 10/04/18 Unknown < 2.0 mg/dL (<2.0) 10/04/18 Unknown Ur Leukocyte Esterase Neg (Negative) 10/04/18 Unknown 6.0 /HPF (0.0-6.0) 10/04/18 Unknown 5.0 /HPF (0.0-6.0) 10/04/18 Unknown U Epithel Cells (Auto) < 1.0 /HPF (0-13.0) 10/04/18 Unknown 1+ /HPF (Negative) 10/04/18 Unknown Few /HPF 10/04/18 Unknown Active Medications - Current Medications Current Medications: Generic Name Dose Route Start Last Admin Trade Name Freq PRN Reason Stop Dose Admin Albuterol 2.5 mg 10/04/18 11:45 10/06/18 11:29 Proventil IH 2.5 mg Q3HRT PRN Administration Shortness Of Breath Albuterol/Ipratropium 1 ampul 10/06/18 14:00 10/08/18 14:08 Duoneb *Not For Prn Use* IH 1 ampul Q6HRT FAITH Administration Lipase/Protease/Amylase 1 each 10/05/18 15:46 Pancreazivon Sifuentes 10,500 Unit FEEDTUBE PRN PRN For Clogged Feeding Tube Aspirin 81 mg 10/05/18 23:00 10/08/18 09:39 Baby Aspirin PO 81 mg QDAY FAITH Administration Budesonide 0.5 mg 10/06/18 13:00 10/08/18 07:58 Pulmicort IH 0.5 mg Q12HRT FAITH Administration Enoxaparin Sodium 30 mg 10/07/18 10:00 10/08/18 09:43 Lovenox SUB-Q 30 mg QDAY FAITH Administration Hydralazine HCl 10 mg 10/05/18 11:16 10/07/18 04:46 Apresoline IV 10 mg Q4H PRN Administration SBP >/=160 Hydrophilic Ointment 1 applic 10/04/18 11:20 Vaseline Lip Therapy TP Q2HR PRN Dry Lips Labetalol HCl 100 mg 10/05/18 12:00 10/08/18 09:42 Normodyne PO 100 mg BID FAITH Administration Lansoprazole 30 mg 10/05/18 10:00 10/08/18 09:38 Prevacid Solutab FEEDTUBE 30 mg QDAY FAITH Administration Multi-Ingred Cream/Lotion/Oil/Oint 1 applic 10/04/18 11:20 Artificial Tears Ophth Oint OU Q4HR PRN Dry Eye(s) Nitroglycerin 0.4 mg 10/04/18 11:45 Nitrostat SL Q5M PRN Chest Pain Oxybutynin Chloride 5 mg 10/05/18 23:00 10/07/18 21:27 Ditropan PO 5 mg QHS FAITH Administration Simple Syrup 15 ml 10/05/18 15:46 Simple Syrup FEEDTUBE PRN PRN Hypoglycemia Simple Syrup 30 ml 10/05/18 15:46 Simple Syrup FEEDTUBE PRN PRN Hypoglycemia Sodium Bicarbonate 325 mg 10/05/18 15:46 Sodium Bicarbonate FEEDTUBE PRN PRN For Clogged Feeding Tube Sodium Chloride 10 ml 10/04/18 22:00 10/08/18 09:48 Sodium Chloride Flush Syringe 10 Ml IV 10 ml BID FAITH Administration Sodium Chloride 10 ml 10/04/18 11:45 Sodium Chloride Flush Syringe 10 Ml IV PRN PRN LINE FLUSH Nutrition/Malnutrition Assess - Dietary Evaluation Nutrition/Malnutrition Findings: Nutrition Notes Start: 10/05/18 15:33 Freq: Status: Active Protocol: Document 10/07/18 14:21 RM (Rec: 10/07/18 14:24 RM [id number]) Nutrition Notes Initial or Follow up Reassessment Current Diagnosis COPD,Hypertension,Stroke Other Pertinent Diagnosis AMS, Dementia, GERD, Schizophrenia Current Diet Pureed Labs/Tests Reviewed Pertinent Medications Reviewed Height 4 ft 8 in Weight 38 kg [place] Body Weight (kg) 36.36 BMI 18.8 Subjective/Other Information Pt extubated and diet advanced to pureed. Pt eating first meal at time of visit. Burn Absent Trauma Absent #1 Nutrition Diagnosis Inadequate oral intake Diagnosis Progress(for reassessment Continues documentation) Is patient on ventilator? No Is Patient Ambulatory and/or Out of Bed No [facility] 803.688 Kcal/Kg value to use for calculation 33 Approximate Energy Requirements Using 1254 kcal/Kg Calculation Used for Recommendations [facility] Additional Notes Protein Needs: 46-76g (1.2-2g/ kg) Fluid Needs: 1 ml/kcal Nutrition Intervention Change Diet Order: Continue current Goal #1 Meet at least 75% of calorie and protein needs PO intakes Anticipated Discharge Needs: Pureed diet Follow-Up By: 10/11/18 Additional Comments Follow for PO intakes
--- NOTE | 2018-10-08 18:58 | XRay Report ---
CHEST 1 VIEW 6:45 PM INDICATION / CLINICAL INFORMATION: Pulmonary edema. COMPARISON: 10/04/2018. FINDINGS: SUPPORT DEVICES: The endotracheal and nasogastric tubes have been removed. HEART / MEDIASTINUM: Unchanged. LUNGS / PLEURA: Pleuroparenchymal disease in the left lower hemithorax with obscuration of the hemidi aphragm appears mildly increased. Mild interstitial disease in the right is similar to the prior exam . No pneumothorax. ADDITIONAL FINDINGS: No significant additional findings. IMPRESSION: Mild increase in left basilar pleuroparenchymal disease. Mild interstitial disease on the right has not changed. Signer Name: Davis Aquino MD Signed: 10/08/2018 6:53 PM Workstation Name: [id number]
[2018-10-08] MEDS: DITROPAN PO SCH (22:00)
[2018-10-09] MEDS: DUONEB *Not for PRN Use IH SCH ×4 (02:08→21:33)
[2018-10-09 05:28] LABS: BUN/Creatinine Ratio 26; Blood Urea Nitrogen 13 mg/dL (7-17); Calcium 8.8 mg/dL (8.4-10.2); Hemolysis Index 3
--- NOTE | 2018-10-09 08:30 | Progress Note ---
Assessment and Plan - Patient Problems (1) Altered mental state Current Visit: Yes Status: Acute Qualifiers: Altered mental status type: unspecified Qualified Code(s): R41.82 - Altered mental status, unspecified (2) COPD (chronic obstructive pulmonary disease) Current Visit: Yes Status: Acute Qualifiers: Chronic bronchitis type: mixed simple and mucopurulent (3) Encephalopathy Current Visit: Yes Status: Resolved (4) Abnormal CXR (chest x-ray) Current Visit: Yes Status: Chronic (5) Hypothyroidism Current Visit: Yes Status: Acute Qualifiers: Hypothyroidism type: unspecified Qualified Code(s): E03.9 - Hypothyroidism, unspecified Subjective Principal diagnosis: Acute respiratory failure Interval history: daughter at bedside pt reportedly has sore throat Objective Vital Signs - 12hr 10/08/18 10/08/18 10/08/18 20:53 20:54 21:59 Temperature Pulse Rate Pulse Rate [ 65 Anterior Bilateral Throughout] Respiratory 22 Rate Respiratory 18 Rate [Anterior Bilateral Throughout] Respiratory 20 Rate [Medial Abdomen] Blood Pressure O2 Sat by Pulse 98 Oximetry 10/08/18 10/08/18 10/09/18 22:00 23:58 02:08 Temperature 98.4 F Pulse Rate 68 70 Pulse Rate [ 96 H Anterior Bilateral Throughout] Respiratory 18 Rate Respiratory 16 Rate [Anterior Bilateral Throughout] Respiratory Rate [Medial Abdomen] Blood Pressure 120/67 122/62 O2 Sat by Pulse 100 96 Oximetry 10/09/18 04:42 Temperature 98.2 F Pulse Rate Pulse Rate [ Anterior Bilateral Throughout] Respiratory 18 Rate Respiratory Rate [Anterior Bilateral Throughout] Respiratory Rate [Medial Abdomen] Blood Pressure 125/64 O2 Sat by Pulse Oximetry Constitutional: no acute distress, other (thin) Eyes: non-icteric ENT: oropharynx moist, other Neck: supple Effort: normal Ascultation: Bilateral: diminished breath sounds (base) Percussion: Bilateral: not dull Cardiovascular: regular rate and rhythm (no mrg) Gastrointestinal: normoactive bowel sounds, soft, non-tender, non-distended Integumentary: normal Extremities: no cyanosis, no edema, pink and warm Neurologic: normal mental status, non-focal exam, pupils equal and round, CN II- XII normal Psychiatric: mood appropriate, affect normal CBC and BMP: 10/06/18 04:24 10/09/18 04:44 ABG, PT/INR, D-dimer: ABG POC ABG pH 7.464 (7.35-7.45) H 10/06/18 04:34 ABG pH 7.472 pH Units (7.350-7.450) H 10/05/18 12:30 POC ABG pCO2 34.1 (35-45) L 10/06/18 04:34 ABG pCO2 31.2 mm Hg 10/05/18 12:30 POC ABG pO2 114 (80-105) H 10/06/18 04:34 ABG pO2 119.5 mm Hg (80.0-90.0) H 10/05/18 12:30 POC ABG HCO3 24.5 (22-26 mml/L) 10/06/18 04:34 POC ABG Total CO2 25 (23-27mmol/L) 10/06/18 04:34 POC ABG O2 Sat 99 10/06/18 04:34 ABG O2 Saturation 98.5 % (95.0-99.0) 10/05/18 12:30 PT/INR, D-dimer 1325.24 ng/mlDDU (0-234) H 10/04/18 Unknown Abnormal lab findings: Abnormal Labs 10/04/18 10/04/18 10/04/18 09:25 09:25 09:25 RBC 3.45 L Hct MCHC Plt Count 123 L Lymph % (Auto) 8.0 L [place] % (Auto) Lymph # 0.4 L Seg Neutrophils % 82.0 H D-Dimer POC ABG pH ABG pH POC ABG pCO2 POC ABG pO2 ABG pO2 ABG Hemoglobin Sodium 132 L Potassium Chloride 95.1 L BUN Creatinine 0.5 L Glucose 126 H Calcium AST ALT Troponin T 0.074 H NT-Pro-B Natriuret Pep 7750 H Total Protein Albumin 3.3 L LDL Cholesterol Direct 133 H HDL Cholesterol 64 H 10/04/18 10/04/18 10/04/18 10:18 14:48 Unknown RBC Hct MCHC Plt Count Lymph % (Auto) [place] % (Auto) Lymph # Seg Neutrophils % D-Dimer POC ABG pH 7.499 H ABG pH POC ABG pCO2 32.0 L POC ABG pO2 139 H ABG pO2 ABG Hemoglobin Sodium Potassium Chloride BUN Creatinine Glucose Calcium AST ALT Troponin T 0.037 H D 0.075 H D NT-Pro-B Natriuret Pep Total Protein Albumin LDL Cholesterol Direct HDL Cholesterol 10/04/18 10/05/18 10/05/18 Unknown 04:09 05:49 RBC 3.24 L Hct 29.3 L MCHC 35 H Plt Count 130 L Lymph % (Auto) 12.4 L [place] % (Auto) 8.6 H Lymph # 0.6 L Seg Neutrophils % 75.7 H D-Dimer 1325.24 H POC ABG pH 7.528 H ABG pH POC ABG pCO2 30.5 L POC ABG pO2 166 H ABG pO2 ABG Hemoglobin Sodium Potassium Chloride BUN Creatinine Glucose Calcium AST ALT Troponin T NT-Pro-B Natriuret Pep Total Protein Albumin LDL Cholesterol Direct HDL Cholesterol 10/05/18 10/05/18 10/06/18 05:49 12:30 04:24 RBC 3.44 L Hct MCHC Plt Count Lymph % (Auto) [place] % (Auto) Lymph # Seg Neutrophils % D-Dimer POC ABG pH ABG pH 7.472 H POC ABG pCO2 POC ABG pO2 ABG pO2 119.5 H ABG Hemoglobin 11.3 L Sodium Potassium 2.9 L* D Chloride BUN Creatinine 0.4 L Glucose Calcium 8.2 L AST < 5 L ALT < 5 L Troponin T NT-Pro-B Natriuret Pep Total Protein 5.5 L Albumin 2.8 L LDL Cholesterol Direct HDL Cholesterol 10/06/18 10/06/18 10/07/18 04:24 04:34 04:23 RBC Hct MCHC Plt Count Lymph % (Auto) [place] % (Auto) Lymph # Seg Neutrophils % D-Dimer POC ABG pH 7.464 H ABG pH POC ABG pCO2 34.1 L POC ABG pO2 114 H ABG pO2 ABG Hemoglobin Sodium Potassium 3.5 L D Chloride BUN Creatinine 0.5 L 0.4 L Glucose 115 H Calcium AST ALT Troponin T NT-Pro-B Natriuret Pep Total Protein Albumin LDL Cholesterol Direct HDL Cholesterol 10/08/18 10/09/18 05:38 04:44 RBC Hct MCHC Plt Count Lymph % (Auto) [place] % (Auto) Lymph # Seg Neutrophils % D-Dimer POC ABG pH ABG pH POC ABG pCO2 POC ABG pO2 ABG pO2 ABG Hemoglobin Sodium 135 L 135 L Potassium Chloride BUN 18 H Creatinine 0.5 L 0.5 L Glucose 111 H 110 H Calcium AST ALT Troponin T NT-Pro-B Natriuret Pep Total Protein Albumin LDL Cholesterol Direct HDL Cholesterol
[2018-10-09] MEDS: PULMICORT IH SCH ×2 (08:40→21:33)
[2018-10-09] MEDS: LOVENOX SUB-Q SCH (09:29)
[2018-10-09] MEDS: NORMODYNE PO SCH ×2 (09:30→21:40)
[2018-10-09] MEDS: BABY ASPIRIN PO SCH (09:30)
[2018-10-09] MEDS: SODIUM CHLORIDE FLUSH SYRINGE 10 ML IV SCH ×2 (09:30→21:40)
[2018-10-09] MEDS: PREVACID SOLUTAB FEEDTUBE SCH (09:30)
[2018-10-09] MEDS ORDERED: TESSALON PERLES PO PRN (10:06)
[2018-10-09] MEDS ORDERED: CHLORASEPTIC MM PRN (10:06)
[2018-10-09] MEDS ORDERED: LASIX IV ONE (11:00)
--- NOTE | 2018-10-09 12:35 | Progress Note ---
Assessment and Plan Assessment and plan: Acute respiratory failure. Was intubated, on ventilator Extubated 10/06 Pulmonology following Fever blood cultures Negative Sepsis ruled out Asymptomatic bacteuria with Enterococcus Does not need treatment, as per ID Coughing Tessalon perles Lasix iv X 1 dose Repeat CXR in am Possible left lower lobe pneumonia Was on Rocephin, Zithromax, discontinued Hypertension Hydralazine iv prn Labetalol elevated Troponin cardiology following ischemic eval as an outpatient, as per Cardiology Toxic metabolic encephalopathy Hypothyroidism Monitor Dementia. supportive care Hypokalemia Replace hyponatremia Discussed with son at bedside Full code status Gen weakness: Consulted PT History Interval history: Patient extubated 10/06 Cough generalized weakness Hospitalist Physical - Physical exam Narrative exam: Gen: Not in acute distress, lying in bed, HEENT: Normocephalic, atraumatic Neck: supple, no JVD Heart: S1 and S2 reg, no murmurs, rubs or gallop Lungs: Clear, no crackles, no rhonchi Abd: soft, non tender, non distended, normal BS, Ext: No edema, no clubbing, no cyanosis Neuro: awake,alert, moves all ext - Constitutional Vitals: Temp Pulse Resp BP Pulse Ox 98.2 F 67 18 113/63 96 10/09/18 11:57 10/09/18 11:57 10/09/18 11:57 10/09/18 11:57 10/09/18 11:57 General appearance: Present: other (intubated and sedated) Results - Labs CBC & Chem 7: 10/06/18 04:24 10/09/18 04:44 Labs: Laboratory Last Values WBC 5.3 K/mm3 (4.5-11.0) 10/06/18 04:24 RBC 3.44 M/mm3 (3.65-5.03) L 10/06/18 04:24 Hgb 10.5 gm/dl (10.1-14.3) 10/06/18 04:24 Hct 31.5 % (30.3-42.9) 10/06/18 04:24 MCV 92 fl (79-97) 10/06/18 04:24 MCH 31 pg (28-32) 10/06/18 04:24 MCHC 33 % (30-34) 10/06/18 04:24 RDW 14.4 % (13.2-15.2) 10/06/18 04:24 Plt Count 160 K/mm3 (140-440) 10/06/18 04:24 Lymph % (Auto) 12.4 % (13.4-35.0) L 10/05/18 05:49 [place] % (Auto) 8.6 % (0.0-7.3) H 10/05/18 05:49 Eos % (Auto) 3.1 % (0.0-4.3) 10/05/18 05:49 Baso % (Auto) 0.2 % (0.0-1.8) 10/05/18 05:49 Lymph # 0.6 K/mm3 (1.2-5.4) L 10/05/18 05:49 [place] # 0.4 K/mm3 (0.0-0.8) 10/05/18 05:49 Eos # 0.2 K/mm3 (0.0-0.4) 10/05/18 05:49 Baso # 0.0 K/mm3 (0.0-0.1) 10/05/18 05:49 Seg Neutrophils % 75.7 % (40.0-70.0) H 10/05/18 05:49 Seg Neutrophils # 3.7 K/mm3 (1.8-7.7) 10/05/18 05:49 1325.24 ng/mlDDU (0-234) H 10/04/18 Unknown POC ABG pH 7.464 (7.35-7.45) H 10/06/18 04:34 ABG pH 7.472 pH Units (7.350-7.450) H 10/05/18 12:30 POC ABG pCO2 34.1 (35-45) L 10/06/18 04:34 ABG pCO2 31.2 mm Hg 10/05/18 12:30 POC ABG pO2 114 (80-105) H 10/06/18 04:34 ABG pO2 119.5 mm Hg (80.0-90.0) H 10/05/18 12:30 POC ABG HCO3 24.5 (22-26 mml/L) 10/06/18 04:34 ABG HCO3 22.3 mmol/L (20.0-26.0) 10/05/18 12:30 POC ABG Total CO2 25 (23-27mmol/L) 10/06/18 04:34 POC ABG O2 Sat 99 10/06/18 04:34 ABG O2 Saturation 98.5 % (95.0-99.0) 10/05/18 12:30 ABG O2 Content 15.6 (0.0-44) 10/05/18 12:30 POC ABG Base Excess 1 ((-2) - (+3)mmol/L) 10/06/18 04:34 ABG Base Excess -0.7 mmol/L (-2.0-3.0) 10/05/18 12:30 ABG Hemoglobin 11.3 gm/dl (12.0-16.0) L 10/05/18 12:30 ABG Carboxyhemoglobin 1.5 % (0.0-5.0) 10/05/18 12:30 ABG Methemoglobin 0.6 % (0.0-1.5) 10/05/18 12:30 96.4 % (95.0-99.0) 10/05/18 12:30 28 % 10/06/18 04:34 Sodium 135 mmol/L (137-145) L 10/09/18 04:44 Potassium 4.8 mmol/L (3.6-5.0) 10/09/18 04:44 Chloride 99.0 mmol/L (98-107) 10/09/18 04:44 Carbon Dioxide 28 mmol/L (22-30) 10/09/18 04:44 13 mmol/L 10/09/18 04:44 BUN 13 mg/dL (7-17) 10/09/18 04:44 0.5 mg/dL (0.7-1.2) L 10/09/18 04:44 Estimated GFR > 60 ml/min 10/09/18 04:44 26 % 10/09/18 04:44 Glucose 110 mg/dL (65-100) H 10/09/18 04:44 Lactic Acid 1.90 mmol/L (0.7-2.0) 10/04/18 12:13 Calcium 8.8 mg/dL (8.4-10.2) 10/09/18 04:44 Magnesium 2.20 mg/dL (1.7-2.3) 10/05/18 07:14 0.50 mg/dL (0.1-1.2) 10/05/18 05:49 AST < 5 units/L (5-40) L 10/05/18 05:49 ALT < 5 units/L (7-56) L 10/05/18 05:49 77 units/L (35-129) 10/05/18 05:49 < 0.010 ng/mL (0.00-0.029) 10/05/18 12:54 NT-Pro-B Natriuret Pep 7750 pg/mL (0-900) H 10/04/18 09:25 5.5 g/dL (6.3-8.2) L 10/05/18 05:49 2.8 g/dL (3.9-5) L 10/05/18 05:49 1.0 % 10/05/18 05:49 Triglycerides 104 mg/dL (2-149) 10/04/18 09:25 Cholesterol 198 mg/dL (50-199) 10/04/18 09:25 133 mg/dL (50-130) H 10/04/18 09:25 64 mg/dL (40-59) H 10/04/18 09:25 3.09 % 10/04/18 09:25 TSH 2.970 mlU/mL (0.270-4.200) 10/04/18 12:13 Free T4 1.34 ng/dL (0.76-1.46) 10/04/18 12:13 Yellow (Yellow) 10/04/18 Unknown Clear (Clear) 10/04/18 Unknown 5.0 (5.0-7.0) 10/04/18 Unknown Ur Specific [place] 1.016 (1.003-1.030) 10/04/18 Unknown 30 mg/dl mg/dL (Negative) 10/04/18 Unknown 50 mg/dL (Negative) 10/04/18 Unknown Neg mg/dL (Negative) 10/04/18 Unknown Neg (Negative) 10/04/18 Unknown Neg (Negative) 10/04/18 Unknown Neg (Negative) 10/04/18 Unknown < 2.0 mg/dL (<2.0) 10/04/18 Unknown Ur Leukocyte Esterase Neg (Negative) 10/04/18 Unknown 6.0 /HPF (0.0-6.0) 10/04/18 Unknown 5.0 /HPF (0.0-6.0) 10/04/18 Unknown U Epithel Cells (Auto) < 1.0 /HPF (0-13.0) 10/04/18 Unknown 1+ /HPF (Negative) 10/04/18 Unknown Few /HPF 10/04/18 Unknown Active Medications - Current Medications Current Medications: Generic Name Dose Route Start Last Admin Trade Name Freq PRN Reason Stop Dose Admin Albuterol 2.5 mg 10/04/18 11:45 10/06/18 11:29 Proventil IH 2.5 mg Q3HRT PRN Administration Shortness Of Breath Albuterol/Ipratropium 1 ampul 10/06/18 14:00 10/09/18 08:40 Duoneb *Not For Prn Use* IH 1 ampul Q6HRT FAITH Administration Lipase/Protease/Amylase 1 each 10/05/18 15:46 Pancreazivon Sifuentes 10,500 Unit FEEDTUBE PRN PRN For Clogged Feeding Tube Aspirin 81 mg 10/05/18 23:00 10/09/18 09:30 Baby Aspirin PO 81 mg QDAY FAITH Administration Benzonatate 100 mg 10/09/18 10:06 Tessalon Perles PO Q8H PRN Cough Budesonide 0.5 mg 10/06/18 13:00 10/09/18 08:40 Pulmicort IH 0.5 mg Q12HRT FAITH Administration Enoxaparin Sodium 30 mg 10/07/18 10:00 10/09/18 09:29 Lovenox SUB-Q 30 mg QDAY FAITH Administration Hydralazine HCl 10 mg 10/05/18 11:16 10/07/18 04:46 Apresoline IV 10 mg Q4H PRN Administration SBP >/=160 Hydrophilic Ointment 1 applic 10/04/18 11:20 Vaseline Lip Therapy TP Q2HR PRN Dry Lips Labetalol HCl 100 mg 10/05/18 12:00 10/09/18 09:30 Normodyne PO 100 mg BID FAITH Administration Lansoprazole 30 mg 10/05/18 10:00 10/09/18 09:30 Prevacid Solutab FEEDTUBE 30 mg QDAY FAITH Administration Multi-Ingred Cream/Lotion/Oil/Oint 1 applic 10/04/18 11:20 Artificial Tears Ophth Oint OU Q4HR PRN Dry Eye(s) Nitroglycerin 0.4 mg 10/04/18 11:45 Nitrostat SL Q5M PRN Chest Pain Oxybutynin Chloride 5 mg 10/05/18 23:00 10/08/18 22:00 Ditropan PO 5 mg QHS FAITH Administration Phenol 1 spray 10/09/18 10:06 Chloraseptic MM PRN PRN Sore Throat Simple Syrup 15 ml 10/05/18 15:46 Simple Syrup FEEDTUBE PRN PRN Hypoglycemia Simple Syrup 30 ml 10/05/18 15:46 Simple Syrup FEEDTUBE PRN PRN Hypoglycemia Sodium Bicarbonate 325 mg 10/05/18 15:46 Sodium Bicarbonate FEEDTUBE PRN PRN For Clogged Feeding Tube Sodium Chloride 10 ml 10/04/18 22:00 10/09/18 09:30 Sodium Chloride Flush Syringe 10 Ml IV 10 ml BID FAITH Administration Sodium Chloride 10 ml 10/04/18 11:45 Sodium Chloride Flush Syringe 10 Ml IV PRN PRN LINE FLUSH Nutrition/Malnutrition Assess - Dietary Evaluation Nutrition/Malnutrition Findings: Nutrition Notes Start: 10/05/18 15:33 Freq: Status: Active Protocol: Document 10/07/18 14:21 RM (Rec: 10/07/18 14:24 RM [email or web address]) Nutrition Notes Initial or Follow up Reassessment Current Diagnosis COPD,Hypertension,Stroke Other Pertinent Diagnosis AMS, Dementia, GERD, Schizophrenia Current Diet Pureed Labs/Tests Reviewed Pertinent Medications Reviewed Height 4 ft 8 in Weight 38 kg [place] Body Weight (kg) 36.36 BMI 18.8 Subjective/Other Information Pt extubated and diet advanced to pureed. Pt eating first meal at time of visit. Burn Absent Trauma Absent #1 Nutrition Diagnosis Inadequate oral intake Diagnosis Progress(for reassessment Continues documentation) Is patient on ventilator? No Is Patient Ambulatory and/or Out of Bed No REE-([facility]-confined to bed) 803.688 Kcal/Kg value to use for calculation 33 Approximate Energy Requirements Using 1254 kcal/Kg Calculation Used for Recommendations [facility] Additional Notes Protein Needs: 46-76g (1.2-2g/ kg) Fluid Needs: 1 ml/kcal Nutrition Intervention Change Diet Order: Continue current Goal #1 Meet at least 75% of calorie and protein needs PO intakes Anticipated Discharge Needs: Pureed diet Follow-Up By: 10/11/18 Additional Comments Follow for PO intakes
[2018-10-09] MEDS: DITROPAN PO SCH (21:39)
[2018-10-10] MEDS: DUONEB *Not for PRN Use IH SCH ×4 (03:01→19:40)
[2018-10-10] MEDS: APRESOLINE IV PRN (04:09)
[2018-10-10] MEDS: PULMICORT IH SCH ×2 (07:39→19:40)
[2018-10-10] MEDS: PREVACID SOLUTAB FEEDTUBE SCH (09:18)
[2018-10-10] MEDS: BABY ASPIRIN PO SCH (09:18)
[2018-10-10] MEDS: NORMODYNE PO SCH ×2 (09:19→22:17)
[2018-10-10] MEDS: LOVENOX SUB-Q SCH (09:19)
[2018-10-10] MEDS: SODIUM CHLORIDE FLUSH SYRINGE 10 ML IV SCH ×2 (09:19→22:17)
--- NOTE | 2018-10-10 12:03 | Progress Note ---
Assessment and Plan - Patient Problems (1) Altered mental state Current Visit: Yes Status: Acute Qualifiers: Altered mental status type: unspecified Qualified Code(s): R41.82 - Altered mental status, unspecified (2) COPD (chronic obstructive pulmonary disease) Current Visit: Yes Status: Acute Qualifiers: Chronic bronchitis type: mixed simple and mucopurulent (3) Encephalopathy Current Visit: Yes Status: Resolved (4) Abnormal CXR (chest x-ray) Current Visit: Yes Status: Chronic (5) Hypothyroidism Current Visit: Yes Status: Acute Qualifiers: Hypothyroidism type: unspecified Qualified Code(s): E03.9 - Hypothyroidism, unspecified Subjective Principal diagnosis: Acute respiratory failure Interval history: awake cough sl better Objective Vital Signs - 12hr 10/10/18 10/10/18 10/10/18 00:40 04:05 04:09 Temperature 98.6 F Pulse Rate 74 74 Pulse Rate [ Anterior Bilateral Throughout] Respiratory 20 Rate Respiratory Rate [Anterior Bilateral Throughout] Blood Pressure 164/64 Blood Pressure 164/64 [Right] O2 Sat by Pulse 98 94 Oximetry 10/10/18 10/10/18 10/10/18 07:39 08:11 09:19 Temperature 98.3 F Pulse Rate Pulse Rate [ 81 Anterior Bilateral Throughout] Respiratory 18 Rate Respiratory 20 Rate [Anterior Bilateral Throughout] Blood Pressure 114/64 114/64 Blood Pressure [Right] O2 Sat by Pulse 98 Oximetry Constitutional: no acute distress, other (thin) Eyes: non-icteric ENT: oropharynx moist, other Neck: supple Effort: normal Ascultation: Bilateral: diminished breath sounds (base) Percussion: Bilateral: not dull Cardiovascular: regular rate and rhythm (no mrg) Gastrointestinal: normoactive bowel sounds, soft, non-tender, non-distended Integumentary: normal Extremities: no cyanosis, no edema, pink and warm Neurologic: normal mental status, non-focal exam, pupils equal and round, CN II- XII normal Psychiatric: mood appropriate, affect normal CBC and BMP: 10/06/18 04:24 10/09/18 04:44 ABG, PT/INR, D-dimer: ABG POC ABG pH 7.464 (7.35-7.45) H 10/06/18 04:34 ABG pH 7.472 pH Units (7.350-7.450) H 10/05/18 12:30 POC ABG pCO2 34.1 (35-45) L 10/06/18 04:34 ABG pCO2 31.2 mm Hg 10/05/18 12:30 POC ABG pO2 114 (80-105) H 10/06/18 04:34 ABG pO2 119.5 mm Hg (80.0-90.0) H 10/05/18 12:30 POC ABG HCO3 24.5 (22-26 mml/L) 10/06/18 04:34 POC ABG Total CO2 25 (23-27mmol/L) 10/06/18 04:34 POC ABG O2 Sat 99 10/06/18 04:34 ABG O2 Saturation 98.5 % (95.0-99.0) 10/05/18 12:30 PT/INR, D-dimer 1325.24 ng/mlDDU (0-234) H 10/04/18 Unknown Abnormal lab findings: Abnormal Labs 10/04/18 10/04/18 10/04/18 09:25 09:25 09:25 RBC 3.45 L Hct MCHC Plt Count 123 L Lymph % (Auto) 8.0 L [place] % (Auto) Lymph # 0.4 L Seg Neutrophils % 82.0 H D-Dimer POC ABG pH ABG pH POC ABG pCO2 POC ABG pO2 ABG pO2 ABG Hemoglobin Sodium 132 L Potassium Chloride 95.1 L BUN Creatinine 0.5 L Glucose 126 H Calcium AST ALT Troponin T 0.074 H NT-Pro-B Natriuret Pep 7750 H Total Protein Albumin 3.3 L LDL Cholesterol Direct 133 H HDL Cholesterol 64 H 10/04/18 10/04/18 10/04/18 10:18 14:48 Unknown RBC Hct MCHC Plt Count Lymph % (Auto) [place] % (Auto) Lymph # Seg Neutrophils % D-Dimer POC ABG pH 7.499 H ABG pH POC ABG pCO2 32.0 L POC ABG pO2 139 H ABG pO2 ABG Hemoglobin Sodium Potassium Chloride BUN Creatinine Glucose Calcium AST ALT Troponin T 0.037 H D 0.075 H D NT-Pro-B Natriuret Pep Total Protein Albumin LDL Cholesterol Direct HDL Cholesterol 10/04/18 10/05/18 10/05/18 Unknown 04:09 05:49 RBC 3.24 L Hct 29.3 L MCHC 35 H Plt Count 130 L Lymph % (Auto) 12.4 L [place] % (Auto) 8.6 H Lymph # 0.6 L Seg Neutrophils % 75.7 H D-Dimer 1325.24 H POC ABG pH 7.528 H ABG pH POC ABG pCO2 30.5 L POC ABG pO2 166 H ABG pO2 ABG Hemoglobin Sodium Potassium Chloride BUN Creatinine Glucose Calcium AST ALT Troponin T NT-Pro-B Natriuret Pep Total Protein Albumin LDL Cholesterol Direct HDL Cholesterol 10/05/18 10/05/18 10/06/18 05:49 12:30 04:24 RBC 3.44 L Hct MCHC Plt Count Lymph % (Auto) [place] % (Auto) Lymph # Seg Neutrophils % D-Dimer POC ABG pH ABG pH 7.472 H POC ABG pCO2 POC ABG pO2 ABG pO2 119.5 H ABG Hemoglobin 11.3 L Sodium Potassium 2.9 L* D Chloride BUN Creatinine 0.4 L Glucose Calcium 8.2 L AST < 5 L ALT < 5 L Troponin T NT-Pro-B Natriuret Pep Total Protein 5.5 L Albumin 2.8 L LDL Cholesterol Direct HDL Cholesterol 10/06/18 10/06/18 10/07/18 04:24 04:34 04:23 RBC Hct MCHC Plt Count Lymph % (Auto) [place] % (Auto) Lymph # Seg Neutrophils % D-Dimer POC ABG pH 7.464 H ABG pH POC ABG pCO2 34.1 L POC ABG pO2 114 H ABG pO2 ABG Hemoglobin Sodium Potassium 3.5 L D Chloride BUN Creatinine 0.5 L 0.4 L Glucose 115 H Calcium AST ALT Troponin T NT-Pro-B Natriuret Pep Total Protein Albumin LDL Cholesterol Direct HDL Cholesterol 10/08/18 10/09/18 05:38 04:44 RBC Hct MCHC Plt Count Lymph % (Auto) [place] % (Auto) Lymph # Seg Neutrophils % D-Dimer POC ABG pH ABG pH POC ABG pCO2 POC ABG pO2 ABG pO2 ABG Hemoglobin Sodium 135 L 135 L Potassium Chloride BUN 18 H Creatinine 0.5 L 0.5 L Glucose 111 H 110 H Calcium AST ALT Troponin T NT-Pro-B Natriuret Pep Total Protein Albumin LDL Cholesterol Direct HDL Cholesterol
--- NOTE | 2018-10-10 17:24 | XRay Report ---
CHEST 1 VIEW INDICATION: left lower lobe pneumonia. COMPARISON: 10/08/2018 FINDINGS: SUPPORT DEVICES: None. HEART / MEDIASTINUM: No significant abnormality. LUNGS / PLEURA: Airspace changes left lower lobe associated left pleural effusion No pneumothorax. ADDITIONAL FINDINGS: IMPRESSION: 1. No interval change airspace process left lower lobe associated left pleural effusion Signer Name: Anselmo Thompson MD Signed: 10/10/2018 5:19 PM Workstation Name: [id number]
--- NOTE | 2018-10-10 17:36 | Progress Note ---
Assessment and Plan Assessment and plan: Acute respiratory failure. Was intubated, on ventilator Extubated 10/06 Pulmonology following Fever blood cultures Negative Sepsis ruled out Asymptomatic bacteuria with Enterococcus Does not need treatment, as per ID Coughing Tessalon perles Lasix iv X 1 dose Repeat CXR in am Possible left lower lobe pneumonia Was on Rocephin, Zithromax, discontinued Repeat CXR today Hypertension Hydralazine iv prn Labetalol elevated Troponin cardiology following ischemic eval as an outpatient, as per Cardiology Toxic metabolic encephalopathy Hypothyroidism Monitor Dementia. supportive care Hypokalemia Replace hyponatremia Discussed with son at bedside Full code status Gen weakness: PT following History Interval history: Patient extubated 10/06 Coughing generalized weakness Hospitalist Physical - Physical exam Narrative exam: Gen: Not in acute distress, lying in bed, HEENT: Normocephalic, atraumatic Neck: supple, no JVD Heart: S1 and S2 reg, no murmurs, rubs or gallop Lungs: Clear, no crackles, no rhonchi Abd: soft, non tender, non distended, normal BS, Ext: No edema, no clubbing, no cyanosis Neuro: awake,alert, moves all ext - Constitutional Vitals: Temp Pulse Resp BP Pulse Ox 98.2 F 76 18 127/66 98 10/10/18 12:53 10/10/18 13:18 10/10/18 13:18 10/10/18 12:53 10/10/18 07:39 General appearance: Present: other (intubated and sedated) Results - Labs CBC & Chem 7: 10/06/18 04:24 10/09/18 04:44 Labs: Laboratory Last Values WBC 5.3 K/mm3 (4.5-11.0) 10/06/18 04:24 RBC 3.44 M/mm3 (3.65-5.03) L 10/06/18 04:24 Hgb 10.5 gm/dl (10.1-14.3) 10/06/18 04:24 Hct 31.5 % (30.3-42.9) 10/06/18 04:24 MCV 92 fl (79-97) 10/06/18 04:24 MCH 31 pg (28-32) 10/06/18 04:24 MCHC 33 % (30-34) 10/06/18 04:24 RDW 14.4 % (13.2-15.2) 10/06/18 04:24 Plt Count 160 K/mm3 (140-440) 10/06/18 04:24 Lymph % (Auto) 12.4 % (13.4-35.0) L 10/05/18 05:49 [place] % (Auto) 8.6 % (0.0-7.3) H 10/05/18 05:49 Eos % (Auto) 3.1 % (0.0-4.3) 10/05/18 05:49 Baso % (Auto) 0.2 % (0.0-1.8) 10/05/18 05:49 Lymph # 0.6 K/mm3 (1.2-5.4) L 10/05/18 05:49 [place] # 0.4 K/mm3 (0.0-0.8) 10/05/18 05:49 Eos # 0.2 K/mm3 (0.0-0.4) 10/05/18 05:49 Baso # 0.0 K/mm3 (0.0-0.1) 10/05/18 05:49 Seg Neutrophils % 75.7 % (40.0-70.0) H 10/05/18 05:49 Seg Neutrophils # 3.7 K/mm3 (1.8-7.7) 10/05/18 05:49 1325.24 ng/mlDDU (0-234) H 10/04/18 Unknown POC ABG pH 7.464 (7.35-7.45) H 10/06/18 04:34 ABG pH 7.472 pH Units (7.350-7.450) H 10/05/18 12:30 POC ABG pCO2 34.1 (35-45) L 10/06/18 04:34 ABG pCO2 31.2 mm Hg 10/05/18 12:30 POC ABG pO2 114 (80-105) H 10/06/18 04:34 ABG pO2 119.5 mm Hg (80.0-90.0) H 10/05/18 12:30 POC ABG HCO3 24.5 (22-26 mml/L) 10/06/18 04:34 ABG HCO3 22.3 mmol/L (20.0-26.0) 10/05/18 12:30 POC ABG Total CO2 25 (23-27mmol/L) 10/06/18 04:34 POC ABG O2 Sat 99 10/06/18 04:34 ABG O2 Saturation 98.5 % (95.0-99.0) 10/05/18 12:30 ABG O2 Content 15.6 (0.0-44) 10/05/18 12:30 POC ABG Base Excess 1 ((-2) - (+3)mmol/L) 10/06/18 04:34 ABG Base Excess -0.7 mmol/L (-2.0-3.0) 10/05/18 12:30 ABG Hemoglobin 11.3 gm/dl (12.0-16.0) L 10/05/18 12:30 ABG Carboxyhemoglobin 1.5 % (0.0-5.0) 10/05/18 12:30 ABG Methemoglobin 0.6 % (0.0-1.5) 10/05/18 12:30 96.4 % (95.0-99.0) 10/05/18 12:30 28 % 10/06/18 04:34 Sodium 135 mmol/L (137-145) L 10/09/18 04:44 Potassium 4.8 mmol/L (3.6-5.0) 10/09/18 04:44 Chloride 99.0 mmol/L (98-107) 10/09/18 04:44 Carbon Dioxide 28 mmol/L (22-30) 10/09/18 04:44 13 mmol/L 10/09/18 04:44 BUN 13 mg/dL (7-17) 10/09/18 04:44 0.5 mg/dL (0.7-1.2) L 10/09/18 04:44 Estimated GFR > 60 ml/min 10/09/18 04:44 26 % 10/09/18 04:44 Glucose 110 mg/dL (65-100) H 10/09/18 04:44 Lactic Acid 1.90 mmol/L (0.7-2.0) 10/04/18 12:13 Calcium 8.8 mg/dL (8.4-10.2) 10/09/18 04:44 Magnesium 2.20 mg/dL (1.7-2.3) 10/05/18 07:14 0.50 mg/dL (0.1-1.2) 10/05/18 05:49 AST < 5 units/L (5-40) L 10/05/18 05:49 ALT < 5 units/L (7-56) L 10/05/18 05:49 77 units/L (35-129) 10/05/18 05:49 < 0.010 ng/mL (0.00-0.029) 10/05/18 12:54 NT-Pro-B Natriuret Pep 7750 pg/mL (0-900) H 10/04/18 09:25 5.5 g/dL (6.3-8.2) L 10/05/18 05:49 2.8 g/dL (3.9-5) L 10/05/18 05:49 1.0 % 10/05/18 05:49 Triglycerides 104 mg/dL (2-149) 10/04/18 09:25 Cholesterol 198 mg/dL (50-199) 10/04/18 09:25 133 mg/dL (50-130) H 10/04/18 09:25 64 mg/dL (40-59) H 10/04/18 09:25 3.09 % 10/04/18 09:25 TSH 2.970 mlU/mL (0.270-4.200) 10/04/18 12:13 Free T4 1.34 ng/dL (0.76-1.46) 10/04/18 12:13 Yellow (Yellow) 10/04/18 Unknown Clear (Clear) 10/04/18 Unknown 5.0 (5.0-7.0) 10/04/18 Unknown Ur Specific [place] 1.016 (1.003-1.030) 10/04/18 Unknown 30 mg/dl mg/dL (Negative) 10/04/18 Unknown 50 mg/dL (Negative) 10/04/18 Unknown Neg mg/dL (Negative) 10/04/18 Unknown Neg (Negative) 10/04/18 Unknown Neg (Negative) 10/04/18 Unknown Neg (Negative) 10/04/18 Unknown < 2.0 mg/dL (<2.0) 10/04/18 Unknown Ur Leukocyte Esterase Neg (Negative) 10/04/18 Unknown 6.0 /HPF (0.0-6.0) 10/04/18 Unknown 5.0 /HPF (0.0-6.0) 10/04/18 Unknown U Epithel Cells (Auto) < 1.0 /HPF (0-13.0) 10/04/18 Unknown 1+ /HPF (Negative) 10/04/18 Unknown Few /HPF 10/04/18 Unknown Active Medications - Current Medications Current Medications: Generic Name Dose Route Start Last Admin Trade Name Freq PRN Reason Stop Dose Admin Albuterol 2.5 mg 10/04/18 11:45 10/06/18 11:29 Proventil IH 2.5 mg Q3HRT PRN Administration Shortness Of Breath Albuterol/Ipratropium 1 ampul 10/06/18 14:00 10/10/18 13:18 Duoneb *Not For Prn Use* IH 1 ampul Q6HRT FAITH Administration Lipase/Protease/Amylase 1 each 10/05/18 15:46 Pancreaze 10,500 Unit FEEDTUBE PRN PRN For Clogged Feeding Tube Aspirin 81 mg 10/05/18 23:00 10/10/18 09:18 Baby Aspirin PO 81 mg QDAY FAITH Administration Benzonatate 100 mg 10/09/18 10:06 Tessalon Perles PO Q8H PRN Cough Budesonide 0.5 mg 10/06/18 13:00 10/10/18 07:39 Pulmicort IH 0.5 mg Q12HRT FAITH Administration Enoxaparin Sodium 30 mg 10/07/18 10:00 10/10/18 09:19 Lovenox SUB-Q 30 mg QDAY FAITH Administration Hydralazine HCl 10 mg 10/05/18 11:16 10/10/18 04:09 Apresoline IV 10 mg Q4H PRN Administration SBP >/=160 Hydrophilic Ointment 1 applic 10/04/18 11:20 Vaseline Lip Therapy TP Q2HR PRN Dry Lips Labetalol HCl 100 mg 10/05/18 12:00 10/10/18 09:19 Normodyne PO Not Given BID FAITH Lansoprazole 30 mg 10/05/18 10:00 10/10/18 09:18 Prevacid Solutab FEEDTUBE 30 mg QDAY FAITH Administration Multi-Ingred Cream/Lotion/Oil/Oint 1 applic 10/04/18 11:20 Artificial Tears Ophth Oint OU Q4HR PRN Dry Eye(s) Nitroglycerin 0.4 mg 10/04/18 11:45 Nitrostat SL Q5M PRN Chest Pain Oxybutynin Chloride 5 mg 10/05/18 23:00 10/09/18 21:39 Ditropan PO 5 mg QHS FAITH Administration Phenol 1 spray 10/09/18 10:06 Chloraseptic MM PRN PRN Sore Throat Simple Syrup 15 ml 10/05/18 15:46 Simple Syrup FEEDTUBE PRN PRN Hypoglycemia Simple Syrup 30 ml 10/05/18 15:46 Simple Syrup FEEDTUBE PRN PRN Hypoglycemia Sodium Bicarbonate 325 mg 10/05/18 15:46 Sodium Bicarbonate FEEDTUBE PRN PRN For Clogged Feeding Tube Sodium Chloride 10 ml 10/04/18 22:00 10/10/18 09:19 Sodium Chloride Flush Syringe 10 Ml IV 10 ml BID FAITH Administration Sodium Chloride 10 ml 10/04/18 11:45 Sodium Chloride Flush Syringe 10 Ml IV PRN PRN LINE FLUSH Nutrition/Malnutrition Assess - Dietary Evaluation Nutrition/Malnutrition Findings: Nutrition Notes Start: 10/05/18 15:33 Freq: Status: Active Protocol: Document 10/07/18 14:21 RM (Rec: 10/07/18 14:24 RM [id number]) Nutrition Notes Initial or Follow up Reassessment Current Diagnosis COPD,Hypertension,Stroke Other Pertinent Diagnosis AMS, Dementia, GERD, Schizophrenia Current Diet Pureed Labs/Tests Reviewed Pertinent Medications Reviewed Height 4 ft 8 in Weight 38 kg [place] Body Weight (kg) 36.36 BMI 18.8 Subjective/Other Information Pt extubated and diet advanced to pureed. Pt eating first meal at time of visit. Burn Absent Trauma Absent #1 Nutrition Diagnosis Inadequate oral intake Diagnosis Progress(for reassessment Continues documentation) Is patient on ventilator? No Is Patient Ambulatory and/or Out of Bed No REE-([facility]-confined to bed) 803.688 Kcal/Kg value to use for calculation 33 Approximate Energy Requirements Using 1254 kcal/Kg Calculation Used for Recommendations [facility] Additional Notes Protein Needs: 46-76g (1.2-2g/ kg) Fluid Needs: 1 ml/kcal Nutrition Intervention Change Diet Order: Continue current Goal #1 Meet at least 75% of calorie and protein needs PO intakes Anticipated Discharge Needs: Pureed diet Follow-Up By: 10/11/18 Additional Comments Follow for PO intakes
[2018-10-10] MEDS: DITROPAN PO SCH (22:17)
[2018-10-11] MEDS: DUONEB *Not for PRN Use IH SCH ×3 (01:02→15:06)
[2018-10-11 04:47] LABS: Hematocrit 33.1 % (30.3-42.9); Mean Corpuscular HGB Conc 33 % (30-34); Mean Corpuscular Volume 91 fl (79-97); Platelet Count 310 K/mm3 (140-440); Red Blood Count 3.64 M/mm3 (3.65-5.03); Red Cell Distribution Width 13.7 % (13.2-15.2)
[2018-10-11 05:12] LABS: BUN/Creatinine Ratio 52; Blood Urea Nitrogen 26 mg/dL (7-17); Calcium 9.3 mg/dL (8.4-10.2); Hemolysis Index 8
[2018-10-11] MEDS: PULMICORT IH SCH (08:05)
[2018-10-11] MEDS: BABY ASPIRIN PO SCH (09:06)
[2018-10-11] MEDS: SODIUM CHLORIDE FLUSH SYRINGE 10 ML IV SCH (09:06)
[2018-10-11] MEDS: LOVENOX SUB-Q SCH (09:06)
[2018-10-11] MEDS: PREVACID SOLUTAB FEEDTUBE SCH (09:06)
[2018-10-11] MEDS: NORMODYNE PO SCH (09:06)
[2018-10-11 09:38] VITALS: BP 154/68
[2018-10-11] MEDS ORDERED: HALDOL IM PRN (11:31)
--- NOTE | 2018-10-11 12:14 | Progress Note ---
Assessment and Plan . Accelerated HTN on admit with probable pulmonary edema due to the same, resolved 2. 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 COPD per history 4. Acute respiratory failure, hypoxia 5. Encephalopathy, resolved 6. Hyponatremia 7. Hospital psychosis Rec: 1. Continue treatment of psychosis 2. Repeat CXR; the LLL findings are chronic -> doubt pneumonia per above 3. Acute respiratory failure, hypoxia, on oxygen therapy 4. Mentation appears to be at baseline 5. Cont. nebs; resume Symbicort and Spiriva at d/c 6. Wean off O2 to keep sats 88% or > 7. Purred diet w/ thin liquids per ST 8. Mobilize Subjective Date of service: 10/11/18 Principal diagnosis: Acute respiratory failure Interval history: Patient awake but confused and disoriented. Objective Vital Signs - 12hr 10/11/18 10/11/18 10/11/18 01:02 03:27 04:15 Temperature 98.9 F Pulse Rate 76 Pulse Rate [ 79 Anterior Bilateral Throughout] Respiratory 19 Rate Respiratory 18 Rate [Anterior Bilateral Throughout] Blood Pressure 140/75 O2 Sat by Pulse 96 Oximetry 10/11/18 10/11/18 10/11/18 08:05 08:09 08:24 Temperature 97.2 F L Pulse Rate Pulse Rate [ 78 Anterior Bilateral Throughout] Respiratory 18 Rate Respiratory 18 Rate [Anterior Bilateral Throughout] Blood Pressure 154/68 O2 Sat by Pulse 97 Oximetry Constitutional: no acute distress, other (thin) Eyes: non-icteric ENT: oropharynx moist, other Neck: supple Effort: normal Ascultation: Left: diminished breath sounds (base), Bilateral: clear Percussion: Bilateral: not dull Cardiovascular: regular rate and rhythm (no mrg) Gastrointestinal: normoactive bowel sounds, soft, non-tender, non-distended Integumentary: normal Extremities: no cyanosis, no edema, pink and warm Neurologic: normal mental status, non-focal exam, pupils equal and round, CN II- XII normal Psychiatric: mood appropriate, affect normal CBC and BMP: 10/11/18 04:34 10/11/18 04:34 ABG, PT/INR, D-dimer: ABG POC ABG pH 7.464 (7.35-7.45) H 10/06/18 04:34 ABG pH 7.472 pH Units (7.350-7.450) H 10/05/18 12:30 POC ABG pCO2 34.1 (35-45) L 10/06/18 04:34 ABG pCO2 31.2 mm Hg 10/05/18 12:30 POC ABG pO2 114 (80-105) H 10/06/18 04:34 ABG pO2 119.5 mm Hg (80.0-90.0) H 10/05/18 12:30 POC ABG HCO3 24.5 (22-26 mml/L) 10/06/18 04:34 POC ABG Total CO2 25 (23-27mmol/L) 10/06/18 04:34 POC ABG O2 Sat 99 10/06/18 04:34 ABG O2 Saturation 98.5 % (95.0-99.0) 10/05/18 12:30 PT/INR, D-dimer 1325.24 ng/mlDDU (0-234) H 10/04/18 Unknown Abnormal lab findings: Abnormal Labs 10/04/18 10/04/18 10/04/18 09:25 09:25 09:25 RBC 3.45 L Hct MCHC Plt Count 123 L Lymph % (Auto) 8.0 L [place] % (Auto) Lymph # 0.4 L Seg Neutrophils % 82.0 H D-Dimer POC ABG pH ABG pH POC ABG pCO2 POC ABG pO2 ABG pO2 ABG Hemoglobin Sodium 132 L Potassium Chloride 95.1 L BUN Creatinine 0.5 L Glucose 126 H Calcium AST ALT Troponin T 0.074 H NT-Pro-B Natriuret Pep 7750 H Total Protein Albumin 3.3 L LDL Cholesterol Direct 133 H HDL Cholesterol 64 H 10/04/18 10/04/18 10/04/18 10:18 14:48 Unknown RBC Hct MCHC Plt Count Lymph % (Auto) [place] % (Auto) Lymph # Seg Neutrophils % D-Dimer POC ABG pH 7.499 H ABG pH POC ABG pCO2 32.0 L POC ABG pO2 139 H ABG pO2 ABG Hemoglobin Sodium Potassium Chloride BUN Creatinine Glucose Calcium AST ALT Troponin T 0.037 H D 0.075 H D NT-Pro-B Natriuret Pep Total Protein Albumin LDL Cholesterol Direct HDL Cholesterol 10/04/18 10/05/18 10/05/18 Unknown 04:09 05:49 RBC 3.24 L Hct 29.3 L MCHC 35 H Plt Count 130 L Lymph % (Auto) 12.4 L [place] % (Auto) 8.6 H Lymph # 0.6 L Seg Neutrophils % 75.7 H D-Dimer 1325.24 H POC ABG pH 7.528 H ABG pH POC ABG pCO2 30.5 L POC ABG pO2 166 H ABG pO2 ABG Hemoglobin Sodium Potassium Chloride BUN Creatinine Glucose Calcium AST ALT Troponin T NT-Pro-B Natriuret Pep Total Protein Albumin LDL Cholesterol Direct HDL Cholesterol 10/05/18 10/05/18 10/06/18 05:49 12:30 04:24 RBC 3.44 L Hct MCHC Plt Count Lymph % (Auto) [place] % (Auto) Lymph # Seg Neutrophils % D-Dimer POC ABG pH ABG pH 7.472 H POC ABG pCO2 POC ABG pO2 ABG pO2 119.5 H ABG Hemoglobin 11.3 L Sodium Potassium 2.9 L* D Chloride BUN Creatinine 0.4 L Glucose Calcium 8.2 L AST < 5 L ALT < 5 L Troponin T NT-Pro-B Natriuret Pep Total Protein 5.5 L Albumin 2.8 L LDL Cholesterol Direct HDL Cholesterol 10/06/18 10/06/18 10/07/18 04:24 04:34 04:23 RBC Hct MCHC Plt Count Lymph % (Auto) [place] % (Auto) Lymph # Seg Neutrophils % D-Dimer POC ABG pH 7.464 H ABG pH POC ABG pCO2 34.1 L POC ABG pO2 114 H ABG pO2 ABG Hemoglobin Sodium Potassium 3.5 L D Chloride BUN Creatinine 0.5 L 0.4 L Glucose 115 H Calcium AST ALT Troponin T NT-Pro-B Natriuret Pep Total Protein Albumin LDL Cholesterol Direct HDL Cholesterol 10/08/18 10/09/18 10/11/18 05:38 04:44 04:34 RBC 3.64 L Hct MCHC Plt Count Lymph % (Auto) [place] % (Auto) Lymph # Seg Neutrophils % D-Dimer POC ABG pH ABG pH POC ABG pCO2 POC ABG pO2 ABG pO2 ABG Hemoglobin Sodium 135 L 135 L Potassium Chloride BUN 18 H Creatinine 0.5 L 0.5 L Glucose 111 H 110 H Calcium AST ALT Troponin T NT-Pro-B Natriuret Pep Total Protein Albumin LDL Cholesterol Direct HDL Cholesterol 10/11/18 04:34 RBC Hct MCHC Plt Count Lymph % (Auto) [place] % (Auto) Lymph # Seg Neutrophils % D-Dimer POC ABG pH ABG pH POC ABG pCO2 POC ABG pO2 ABG pO2 ABG Hemoglobin Sodium 131 L Potassium Chloride 94.3 L BUN 26 H Creatinine 0.5 L Glucose 120 H Calcium AST ALT Troponin T NT-Pro-B Natriuret Pep Total Protein Albumin LDL Cholesterol Direct HDL Cholesterol Chest x-ray: image reviewed (cardiomegaly left basilar process with possible small left pleural effusion.)
--- NOTE | 2018-10-11 16:28 | Discharge Summary ---
Providers - Providers Date of Admission: 10/04/18 11:45 Date of discharge: 10/11/18 Attending physician: JACQUELYN MORALES 10/04/18 Consult to Cardiac Rehabilitation [CONS] Routine Reason For Exam: Phase I 10/04/18 11:20 Consult to Dietitian/Nutrition [CONS] Routine Physician Instructions: Reason For Exam: Reason for Consult: Evaluate nutritional intake 10/04/18 11:47 Consult to Physician [CONS] Routine Comment: Consulting Provider: YISSEL FITZPATRICK Physician Instructions: Reason For Exam: Respiratory failure 10/04/18 11:50 Consult to Physician [CONS] Routine Comment: Consulting Provider: CARON MORA Physician Instructions: Reason For Exam: nstemi 10/05/18 09:07 Consult to Physician [CONS] Routine Comment: Consulting Provider: SAMIRA GRIFFIN Physician Instructions: Reason For Exam: Fever, possible sepsis 10/05/18 11:42 Consult to Dietitian/Nutrition [CONS] Routine Physician Instructions: Reason For Exam: Reason for Consult: Write/Manage Tube Feeding 10/05/18 15:45 Consult to Dietitian/Nutrition [CONS] Stat Physician Instructions: Reason For Exam: Reason for Consult: Write/Manage Tube Feeding 10/07/18 09:56 Speech Therapy Evaluation and Treat [CONS] Routine Reason For Exam: dysphagia 10/08/18 10:53 Physical Therapy Evaluation and Treat [CONS] Routine Comment: Reason For Exam: Gen weakness Primary care physician: BLANCA ECHOLS Hospitalization Condition: Fair Disposition: DC-01 TO HOME OR SELFCARE Exam - Constitutional Vitals: Temp Pulse Resp BP Pulse Ox 97.2 F L 73 20 154/68 97 10/11/18 08:09 10/11/18 15:24 10/11/18 15:24 10/11/18 08:09 10/11/18 08:05 Plan Activity: advance as tolerated Diet: other (Pureed diet) Special Instructions: physical therapy, home health RN Plan of Treatment: 1.Follow up with PCP in 1 week. 2.Follow up with Dr. Sanz in 1 week Assessment: 1.Acute respiratory failure Follow up with: PRIMARY CARE, [Referring] - 3-5 Days
== END 2018-10-11 18:43 | disposition home health service (06) | DRG 208 ==
LOC: ED 08:50 → CC1 11:45 → 4A 10-07 16:39
PROVIDERS: ADMIT Internal Medicine; ATTEND Internal Medicine
PROC: 5A1945Z Respiratory Ventilation, 24-96 Consecutive Hours (ICD-10-PCS; principal; 2018-10-04)
PROC: 0BH17EZ Insertion of Endotracheal Airway into Trachea, Via Natural or Artificial Opening (ICD-10-PCS; 2018-10-04)
PROC: 4A033R1 Measurement of Arterial Saturation, Peripheral, Percutaneous Approach (ICD-10-PCS; 2018-10-05)
DX: J96.01 Acute respiratory failure with hypoxia (principal); I21.A1 Myocardial infarction type 2; J18.9 Pneumonia, unspecified organism; G92 Toxic encephalopathy; E87.1 Hypo-osmolality and hyponatremia; J81.1 Chronic pulmonary edema; I67.4 Hypertensive encephalopathy; N39.0 Urinary tract infection, site not specified; K21.9 Gastro-esophageal reflux disease without esophagitis; E87.6 Hypokalemia; R82.71 Bacteriuria; I10 Essential (primary) hypertension; F28 Other psychotic disorder not due to a substance or known physiological condition; E03.9 Hypothyroidism, unspecified; F03.90 Unspecified dementia, unspecified severity, without behavioral disturbance, psychotic disturbance, mood disturbance, and anxiety; B95.2 Enterococcus as the cause of diseases classified elsewhere; J44.9 Chronic obstructive pulmonary disease, unspecified; F20.9 Schizophrenia, unspecified; Z86.73 Personal history of transient ischemic attack (TIA), and cerebral infarction without residual deficits; Z82.49 Family history of ischemic heart disease and other diseases of the circulatory system; Z79.899 Other long term (current) drug therapy
CPT/HCPCS: 36415; 36600; 70450; 71045; 74018; 80048; 80053; 80061; 81001; 82140; 82803; 83735; 83880; 84439; 84443; 84484; 85025; 85027; 85379; 87040; 87070; 87086; 87186; 87205; 93005; 93010; 93306; 94002; 94003; 94640; 94760; 96365; 96375; G0378; J0330; J0360; J0456; J0696; J1630; J1650; J1940; J2250; J2704; J3480; J7030; J7050